=== PATIENT | male | born 1980 | race Caucasian/White ===

== ENCOUNTER 2018-08-08 16:10 | Inpatient (IN) | payer MEDICAID ==
[~2018-08-08] VITALS: Ht 165.1 cm; Wt 161.6 kg
[2018-08-08] MEDS ORDERED: ACETAMINOPHEN 500 MG TAB PO STA (17:01)
[2018-08-08] MEDS ORDERED: AZITHROMYCIN 500MG/NS (PMX) 250 ML IV STA (17:01)
[2018-08-08] MEDS ORDERED: SODIUM CHLORIDE 0.9% 1L BAG IV* STA (17:01)
[2018-08-08] MEDS ORDERED: CEFTRIAXONE 1 GM/50 ML (PMX) 50 ML IVPB STA (17:01)
--- NOTE | 2018-08-08 17:25 | ERD ---
ER Documentation Chief Complaint Chief Complaint SOB, BLE EDEMA, FATIGUE SINCE YESTERDAY HPI 38-year-old male presenting with fever that started yesterday with right leg pain and swelling. He states he always has problems with the right lower extremity but since yesterday it has been more red and painful. To me he is denying any shortness of breath, cough, URI symptoms, chest pain, abdominal pain, or dysuria. No vomiting or diarrhea. ROS All systems reviewed and are negative except as per history of present illness. Medications Home Meds No Active Prescriptions or Reported Meds Allergies Allergies: Coded Allergies: No Known Allergy (Unverified , 08/08/18) PMhx/Soc Medical and Surgical Hx: pt denies Medical Hx, pt denies Surgical Hx FmHx Family History: No diabetes, No coronary disease Physical Exam Vitals Vital Signs Date Temp Pulse Resp B/P (MAP) Pulse Ox O2 O2 Flow FiO2 Time Delivery Rate 08/08/18 132 98 30 17:34 08/08/18 Nasal 5.0 17:32 Cannula 08/08/18 Nasal 5 17:17 Cannula 08/08/18 103.3 146 26 125/70 84 16:37 (88) Physical Exam Const: Morbidly obese, appears to be in mild respiratory distress. Head: Atraumatic Eyes: Normal Conjunctiva ENT: Dry oral mucosa. No obvious JVD, but exam limited due to body habitus normal External Ears, Nose and Mouth. Neck: Full range of motion. No meningismus. Resp: Tachypneic. Diminished breath sounds bilaterally. Exam limited by body habitus. Cardio: Tachycardic, regular rhythm, no murmurs. 2+ DP and PT pulses bilaterally. Abd: Soft, non tender, non distended. Normal bowel sounds Skin: Right lower extremity with erythema, swelling, and warmth. No crepitus to palpation. No brawny discoloration. Mildly tender to palpation. Back: No midline or flank tenderness Ext: Right lower extremity edema and erythema as described in skin exam Neur: Awake and alert, oriented, normal speech, no facial asymmetry, strength and sensations intact in all 4 extremities Psych: Normal Mood and Affect Result Diagram: 08/08/18 1712 08/08/18 1712 Results 24 hrs Laboratory Tests Test 08/08/18 17:12 08/08/18 17:32 White Blood Count 10.6 10^3/ul Red Blood Count 4.73 10^6/ul Hemoglobin 12.8 g/dl Hematocrit 41.9 % Mean Corpuscular Volume 88.6 fl Mean Corpuscular Hemoglobin 27.1 pg Mean Corpuscular Hemoglobin Concent 30.5 g/dl Red Cell Distribution Width 16.6 % Platelet Count 170 10^3/UL Mean Platelet Volume 10.4 fl Immature Granulocytes % 1.100 % Neutrophils % 83.1 % Lymphocytes % 8.2 % Monocytes % 7.3 % Eosinophils % 0.0 % Basophils % 0.3 % Nucleated Red Blood Cells % 0.0 /100WBC Immature Granulocytes # 0.120 10^3/ul Neutrophils # 8.8 10^3/ul Lymphocytes # 0.9 10^3/ul Monocytes # 0.8 10^3/ul Eosinophils # 0.0 10^3/ul Basophils # 0.0 10^3/ul Nucleated Red Blood Cells # 0.0 10^3/ul Prothrombin Time 18.5 Sec Prothrombin Time Ratio 1.4 INR International Normalized Ratio 1.53 Activated Partial Thromboplast Time 37.6 Sec Sodium Level 134 mmol/L Potassium Level 4.6 mmol/L Chloride Level 93 mmol/L Carbon Dioxide Level 32 mmol/L Anion Gap 9 Blood Urea Nitrogen 18 mg/dl Creatinine 1.18 mg/dl Est Glomerular Filtrat Rate mL/min > 60 mL/min Glucose Level 116 mg/dl Lactic Acid Level 1.8 mmol/L Calcium Level 8.7 mg/dl Total Bilirubin 0.4 mg/dl Direct Bilirubin 0.00 mg/dl Indirect Bilirubin 0.4 mg/dl Aspartate Amino Transf (AST/SGOT) 25 IU/L Alanine Aminotransferase (ALT/SGPT) 22 IU/L Alkaline Phosphatase 51 IU/L Troponin I 0.025 ng/ml Total Protein 8.0 g/dl Albumin 4.0 g/dl Globulin 4.00 g/dl Albumin/Globulin Ratio 1.00 Blood Gas Specimen Source Blood arterial Arterial Blood Date Drawn 08/08/2018 5:44:59 PM Arterial Blood pH (Temp corrected) 7.352 Arterial Blood pCO2 (Temp correct) 56.8 mmhg Arterial Blood pO2 (Temp corrected) 63.3 mmHG Arterial Blood HCO3 30.8 mmol/L Arterial Blood Base Excess 3.8 mmol/L Arterial Blood Oxygen Saturation 91.3 mmHG Kojo Test ACCEPTAB Arterial Blood Gas Puncture Site Right Radial Arterial Blood Carboxyhemoglobin 1.5 % Arterial Blood Methemoglobin 0.2 % Blood Gas A-a O2 Differential 83.9 mmHg Oxyhemoglobin Percent 89.7 % Blood Gas Temperature 37.0 C Blood Gas Respiration Rate 16.0 Blood Gas Actual Respiration Rate 21 Blood Gas Modality MASK - BIPAP FiO2 30.0 % Blood Gas Pressure Support 15 Blood Gas IPAP/EPAP Ratio 20/8 Blood Gas Notified Whom M.D. Blood Gas Notified Time 08/08/2018 5:57:40 PM Current Medications Medications Dose Sig/Ciera Start Time Status Last (Trade) Ordered Route PRN Stop Time Admin Dose Reason Admin Sodium 1,850 ml BOLUS OVER 2 08/08/18 DC 08/08/18 Chloride HOURS STAT 17:08/08/18 17:10 (NS) IV* 17:02 Ceftriaxone 50 ml @ ONCE STAT 08/08/18 DC 08/08/18 Sodium 100 mls/hr IVPB 17:08/08/18 17:09 17:30 Azithromycin 250 ml @ ONCE STAT 08/08/18 DC 08/08/18 250 mls/hr IV 17:01 08/08/18 17:47 18:00 1,000 mg ONCE STAT 08/08/18 DC 08/08/18 Acetaminophen PO 17:01 08/08/18 17:10 (Tylenol 17:02 Tab) Ondansetron 4 mg ER BRIDGE 08/08/18 DC HCl (Zofran PRN IV 18:30 08/08/18 Inj) NAUSEA/VOMITI 19:07 NG 650 mg ER BRIDGE 08/08/18 DC Acetaminophen PRN PO 18:30 08/08/18 (Tylenol .MILD PAIN 19:07 Tab) 1-3 OR TEMP IV Flush 3 ml PER 08/08/18 (NS 3 ml) PROTOCOL IV 19:00 Ondansetron 4 mg Q6H PRN 08/08/18 HCl (Zofran IV 19:00 Inj) NAUSEA/VOMITI NG 650 mg Q6H PRN 08/08/18 Acetaminophen PO .PAIN 1-3 19:00 (Tylenol OR TEMP Tab) 40 mg DAILY@06 08/09/18 Pantoprazole IV 06:00 (Protonix Iv) Heparin 5,000 unit Q8 SC 08/08/18 Sodium 22:00 (Porcine) (Heparin (5000 Units/1ml)) Ceftriaxone 50 ml @ Q24H IVPB 08/09/18 Sodium 100 mls/hr 12:00 Azithromycin 250 ml @ Q24H IVPB 08/09/18 250 mls/hr 12:00 Albuterol/ 3 ml Q4H RESP 08/08/18 Ipratropium THERAPY PRN 19:00 (Duoneb) HHN wheezing 2 ml Q6H RESP 08/08/18 Acetylcystein THERAPY NEB 20:00 e (Mucomyst) Nicotine 1 patch DAILY 08/08/18 (Nicoderm 21 TRANSDERM 19:30 Mg/ 24hr) Lorazepam 2 mg Q4H PRN 08/08/18 (Ativan) IV 19:30 anxiety/agita tion Procedures/MDM EMERGENT LABS AND DIAGNOSTIC STUDIES: Lab Results above were reviewed and interpreted by me. CBC: no significant anemia or evidence of infection CMP: Elevated CO2. No evidence of significant electrolyte abnormality, renal failure, hypoglycemia, liver failure, or biliary obstruction Troponin within normal limits, not indicative of cardiac ischemia Lactate within normal limits without evidence of sepsis or tissue hypoperfusion ABG: no acidosis or alkalosis. Hypercapnic, Hypoxemic 12-lead EKG was interpreted by Matt Victor MD: Sinus tachycardia at 137 bpm Normal axis Normal intervals No acute ST or T wave changes suggestive of acute ischemia or STEMI. Radiology Results as interpreted by Radiology below were reviewed by Ina Victor MD: Chest XR: IMPRESSION: Diffuse interstitial opacities bilaterally, which can represent airway inflammation and/or interstitial edema. Further clinical correlation is advised. No radiographic evidence of focal consolidation or pleural effusion, allowing for markedly low lung volumes. Initial Nursing notes reviewed. Previous Medical Records requested via the Electronic Health Record. EMERGENCY DEPARTMENT COURSE / MEDICAL DECISION MAKING: Patient is presenting with fever, tachycardia, tachypnea, and right lower extremity cellulitis. He was also noted to be hypoxic and occasionally apneic. Given the patient's body habitus, I suspect obstructive sleep apnea. Chest x- ray did not show evidence of pneumonia. There was some interstitial edema. I do suspect that the patient likely has some diastolic heart failure that is not diagnosed. He was given IV fluids and broad-spectrum IV antibiotics. No evidence of severe sepsis or septic shock. No clear evidence of pneumonia at this time. Lower suspicion for pulmonary embolism. Right lower extremity ultrasound ruled out DVT. Patient was placed on BiPAP with improvement of his symptoms. ABG was done on BiPAP showing a normal pH but patient is still hypercapnic and hypoxic. Patient's respiratory and infectious symptoms have not stabilized and the patient is at risk of rapid decompensation. The patient will be admitted for careful hydration, antibiotic therapy, and infectious source control. Severe Sepsis Assessment: Infectious Source: Cellulitis of right lower extremity End organ damage indicated by: Acute Resp Failure (sat < 92% w/o oxygen) Severe Sepsis Managment: Blood Cultures X 2 before broad spectrum antibiotics initiated within 3 hours of recognition. 30 ml/kg NS bolus Completed Initial Lactate: [normal] Repeat Lactate [not indicated as initial < 2.0] Critical Care: Time: 40 minutes Treatments/Evaluations: Emergent fluid management, while maintaining close respiratory support. Immediate broad spectrum antibiotic therapy. Simultaneous assessment for possible sources in order to direct therapy. Consideration for invasive and chemical support to prevent respiratory or cardiac collapse. Septic Shock Assessment (1 hour post 30 ml/kg fluid bolus): Hypotension (SBP < 90 or 40 mmHg drop, MAP < 65): [No] Lactic acid > 4.0 [No] Accepting Care Team: Current data and ongoing care discussed. Time: Time of admission Primary Provider: Dr. Rodrigo Rosas Departure Diagnosis: Primary Impression: Acute respiratory failure with hypoxia and hypercapnia Additional Impressions: Sepsis Sepsis type: sepsis due to unspecified organism Qualified Codes: A41.9 - Sepsis, unspecified organism Cellulitis of right leg Condition: Serious PATRICIA VICTOR MD Aug 08, 2018 17:22
[2018-08-08] MEDS ORDERED: ACETAMINOPHEN 325 MG TAB PO PRN ×2 (18:30→19:00)
[2018-08-08] MEDS ORDERED: ONDANSETRON 4 MG INJ IV PRN ×2 (18:30→19:00)
[2018-08-08] MEDS ORDERED: ALBUTEROL/IPRATROPIUM (NEB) 3 ML AMP HHN PRN (19:00)
[2018-08-08] MEDS ORDERED: NACL 0.9% 3 ML SYG IV SCH (19:00)
--- NOTE | 2018-08-08 19:17 | HP ---
Date/Time of Note Date/Time of Note DATE: 08/08/18 TIME: 19:02 Assessment/Plan VTE Prophylaxis SCD applied (from Nsg): Yes Pharmacological prophylaxis: heparin Lines/Catheters IV Catheter Type (from Nrsg): Saline Lock Assessment/Plan Assessment/Plan 38 yo super morbidly obese man with acute on chronic respiratory failure and R leg pain. #Respiratory failure - Per family, has chronic respiratory failure and what sounds like obstructive symptoms for months or years. - Likely DAMON/OHS, possibly COPD with heavy smoking history - Empiric ceftriaxone/azithro for pneumonia - Currently requiring BiPAP for oxygenation and CO2 clearance - Will start prn albuterol/atrovent though I don't hear much wheezing - Also N-acetylcystine as mucolytic. - Discussed possibly need for intubation, patient and family are in agreement. Full code status. #R leg pain - Acute onset over 1-2 days. - Looks like venous stasis disease, possibly with superficial infection - Duplex negative for DVT - Will order CT to r/o deep necrotizing infection or fracture. - Empiric ceftriaxone. #Tobacco use - Nicotine patch #Super morbid obesity - Will check lipid panel, HgbA1C. DVT: heparin GI: protonix Result Diagram: 08/08/18 1712 08/08/18 171 HPI/ROS Admit Date/Time Admit Date/Time 08 August 2018 Hx of Present Illness Mr. Carlisle is an unfortunate super morbidly obese man who presents with right leg pain and swelling. Most of history taken per family at bedside; patient is in respiratory distress on BiPAP. Apparently he had a few days of R leg swelling, two days of fever, the n yesterday developed leg redness. While walking, he collapsed and fell due to the leg pain and weakness. So family brought him into the emergency room. Apparently he has chronic respiratory distress which has been going on for months, possibly years. Mother reports he constantly has gasping breaths day and night and often has apneic episodes lasting up to five minutes at night when sleeping. He has chronic cough productive of sputum which has been going on for months. Severe daytime sleepiness, often falls asleep during conversations. The patient smokes 1 pack per day, he is unemployed and lives at home with mother, father, and sister. He has frequent episodes of anxiety for which he gets up and compulsively searches for food at home. He has not been hospitalized in over 10 years and has not seen a doctor during this time either. In the ED, he was febrile to 103.3, tachy to 146, tachypneic to 26, BP 125/70. CBC, CMP mostly unremarkable. ABG showed hypoxic and hypercapnic respiratory failure with compensatory metabolic alkalosis. ROS Denies recent lethargy, weight loss, headache, vision changes, chest pain/pressure/palpitations, dysuria, hematuria, nausea, vomiting, diarrhea, constipation, melena, hematochezia. PMH/Family/Social Past Medical History Medical History: no pertinent history Medications Current Medications Ondansetron HCl (Zofran Inj) 4 mg ER BRIDGE PRN IV NAUSEA/VOMITING; Start 08/08/18 at 18:30; Stop 08/09/18 at 18:29 Acetaminophen (Tylenol Tab) 650 mg ER BRIDGE PRN PO .MILD PAIN 1-3 OR TEMP; Start 08/08/18 at 18:30; Stop 08/09/18 at 18:29 IV Flush (NS 3 ml) 3 ml PER PROTOCOL IV ; Start 08/08/18 at 19:00 Ondansetron HCl (Zofran Inj) 4 mg Q6H PRN IV NAUSEA/VOMITING; Start 08/08/18 at 19:00 Acetaminophen (Tylenol Tab) 650 mg Q6H PRN PO .PAIN 1-3 OR TEMP; Start 08/08/18 at 19:00 Pantoprazole (Protonix Iv) 40 mg DAILY@06 IV ; Start 08/09/18 at 06:00 Heparin Sodium (Porcine) (Heparin (5000 Units/1ml)) 5,000 unit Q8 SC ; Start 08/08/18 at 22:00 Ceftriaxone Sodium 50 ml @ 100 mls/hr Q24H IVPB ; Start 08/09/18 at 12:00; Status UNV Azithromycin 250 ml @ 250 mls/hr Q24H IVPB ; Start 08/09/18 at 12:00; Status UNV Albuterol/ Ipratropium (Duoneb) 3 ml Q4H RESP THERAPY PRN HHN wheezing; Start 08/08/18 at 19:00; Status UNV Acetylcysteine (Mucomyst) 2 ml Q6H RESP THERAPY NEB ; Start 08/08/18 at 20:00; Status UNV Coded Allergies: No Known Allergy (Unverified , 08/08/18) Past Surgical History Past Surgical Hx: no surgical history Social History Alcohol Use: occasionally (1-2 beers per day) Smoking Status: Current every day smoker (1 pack per day) Drug Use: cocaine (in the distant past) Exam/Review of Systems Vital Signs Vitals Vital Signs Date Temp Pulse Resp B/P (MAP) Pulse Ox O2 O2 Flow FiO2 Time Delivery Rate 08/08/18 132 98 30 17:34 08/08/18 Nasal 5.0 17:32 Cannula 08/08/18 103.3 26 125/70 16:37 (88) Exam Exam Gen: Super morbidly obese man sitting up in bed struggling to breathe on BiPAP. Eyes: PERRL, no icterus. HEENT: Moist mucous membranes, clear oropharynx Neck: Hyperpigmented with numerous skin tags. Card: Regular rate and rhythm, distant heart sounds Pulm: Distant breath sounds bilaterally, respiratory distress on BiPAP Abd: Very distended, soft, nontender. Ext: RLE 2+ edema, erythema, full range of motion, not very tender. LLE obese, no redness. Skin: Several superficial ulcers on inferior pannus folds. JERMAINE DIOP MD Aug 08, 2018 19:13
[2018-08-08] MEDS ORDERED: LORAZEPAM 2 MG INJ IV PRN (19:30)
[2018-08-08] MEDS: NICOTINE (21 MG/24 HR) PATCH TRANSDERM SCH (22:04)
[2018-08-09] VITALS (13 sets, daily range): BP systolic 106–130; BP diastolic 61–67; PULSE 100–150; RESP 16–24; Ht 165.1 cm; Wt 161.6 kg
[2018-08-09] MEDS: HEPARIN 5,000 UNIT/1 ML VIAL SC SCH ×4 (03:30→21:30)
[2018-08-09] MEDS: PANTOPRAZOLE 40 MG INJ IV SCH (05:10)
[2018-08-09] MEDS: ACETYLCYSTEINE 20% 4 ML VIAL NEB SCH ×5 (06:08→19:58)
[2018-08-09] MEDS: NICOTINE (21 MG/24 HR) PATCH TRANSDERM SCH (08:55)
--- NOTE | 2018-08-09 10:54 | PN ---
Date/Time of Note Date/Time of Note DATE: 08/09/18 TIME: 10:50 Assessment/Plan VTE Prophylaxis Risk score (from Nsg)>0 risk: 2 SCD applied (from Nsg): Yes Pharmacological prophylaxis: heparin Lines/Catheters IV Catheter Type (from Nrsg): Saline Lock Assessment/Plan Assessment/Plan 38 yo super morbidly obese man with acute on chronic respiratory failure and R leg pain. #Respiratory failure - Per family, has chronic respiratory failure and what sounds like obstructive symptoms for months or years. - Likely DAMON/OHS, possibly COPD with heavy smoking history - Empiric ceftriaxone/azithro for pneumonia. Will discharge on 7 day course of levaquin. - prn albuterol/atrovent though I don't hear much wheezing - Also N-acetylcystine as mucolytic. - Case management consulted for home BiPAP - Consulted pulmonary. #R leg pain - Acute onset over 1-2 days. - Looks like venous stasis disease, possibly with superficial infection - Duplex negative for DVT - CT not definite for deep necrotizing infection - Will discharge on 7 days of levaquin. - PT for ambulation. #pre-diabetes - New diagnosis with HgbA1C 6.0 - Diet changes and weight loss, may be a good candidate for metformin due to weight loss effect but will not start this now. #Tobacco use - Nicotine patch DVT: heparin GI: protonix Dispo: Anticipate discharge in 24-48 hours. Will likely need home BiPAP and outpatient pulmonary followup. Result Diagram: 08/09/18 0801 08/09/18 0801 Subjective 24 Hr Interval Summary Free Text/Dictation Tolerated BiPAP overnight. This morning breathing comfortably on nasal cannula. Hasn't tried ambulating yet. Informed patient about new diagnosis of pre-diabetes Exam/Review of Systems Exam Vitals Vital Signs Date Temp Pulse Resp B/P (MAP) Pulse Ox O2 O2 Flow FiO2 Time Delivery Rate 08/09/18 125 09:16 08/09/18 99.3 16 130/61 95 BIPAP 07:12 (84) 08/09/18 50 04:05 08/08/18 5.0 17:32 Exam Gen: Super morbidly obese man sitting up in bed breathing comfortably on nasal cannula. Eyes: PERRL, no icterus. HEENT: Moist mucous membranes, clear oropharynx Neck: Hyperpigmented with numerous skin tags. Card: Regular rate and rhythm, distant heart sounds Pulm: Distant breath sounds bilaterally, on nasal cannula Abd: Very distended, soft, nontender. Ext: RLE 2+ edema, erythema improved since yesterday, full range of motion, not very tender. LLE obese, no redness. Skin: Several superficial ulcers on inferior pannus folds. Results Results 24hrs Laboratory Tests Test 08/08/18 17:12 08/08/18 17:32 08/08/18 20:01 08/08/18 22:03 White Blood Count 10.6 Red Blood Count 4.73 Hemoglobin 12.8 L Hematocrit 41.9 L Mean Corpuscular 88.6 Volume Mean Corpuscular 27.1 L Hemoglobin Mean Corpuscular 30.5 L Hemoglobin Concent Red Cell 16.6 H Distribution Width Platelet Count 170 Mean Platelet 10.4 Volume Immature 1.100 H Granulocytes % Neutrophils % 83.1 H Lymphocytes % 8.2 L Monocytes % 7.3 Eosinophils % 0.0 Basophils % 0.3 Nucleated Red 0.0 Blood Cells % Immature 0.120 H Granulocytes # Neutrophils # 8.8 H Lymphocytes # 0.9 Monocytes # 0.8 Eosinophils # 0.0 Basophils # 0.0 Nucleated Red 0.0 Blood Cells # Prothrombin Time 18.5 H Prothrombin Time 1.4 Ratio INR International 1.53 Normalized Ratio Activated 37.6 H 38.[address] Time Sodium Level 134 L Potassium Level 4.6 Chloride Level 93 L Carbon Dioxide 32 H Level Anion Gap 9 Blood Urea 18 Nitrogen Creatinine 1.18 Est Glomerular > 60 Filtrat Rate mL/min Glucose Level 116 Lactic Acid Level 1.8 1.0 1.2 Calcium Level 8.7 Total Bilirubin 0.4 Direct Bilirubin 0.00 Indirect Bilirubin 0.4 Aspartate Amino 25 Transf (AST/SGOT) Alanine 22 Aminotransferase ( ALT/SGPT) Alkaline 51 Phosphatase Troponin I 0.025 Total Protein 8.0 Albumin 4.0 Globulin 4.00 H Albumin/Globulin 1.00 Ratio Blood Gas Specimen Blood arterial Source Arterial Blood 08/08/2018 5:44:59 Date Drawn PM Arterial Blood pH 7.352 (Temp corrected) Arterial Blood 56.8 H pCO2 (Temp correct) Arterial Blood pO2 63.3 L (Temp corrected) Arterial Blood 30.8 H HCO3 Arterial Blood 3.8 H Base Excess Arterial Blood 91.3 L Oxygen Saturation Kojo Test ACCEPTAB Arterial Blood Gas Right Radial Puncture Site Arterial 1.5 Blood Carboxyhemog lobin Arterial Blood 0.2 Methemoglobin Blood Gas A-a O2 83.9 H Differential Oxyhemoglobin 89.7 L Percent Blood Gas 37.0 Temperature Blood Gas 16.0 Respiration Rate Blood Gas Actual 21 Respiration Rate Blood Gas Modality MASK - BIPAP FiO2 30.0 Blood Gas Pressure 15 Support Blood Gas 20/8 IPAP/EPAP Ratio Blood Gas Notified MZita Whom Blood Gas Notified 08/08/2018 5:57:40 Time PM Test 08/09/18 08:01 White Blood Count 9.4 Red Blood Count 4.42 L Hemoglobin 12.0 L Hematocrit 39.3 L Mean Corpuscular 88.9 Volume Mean Corpuscular 27.1 L Hemoglobin Mean Corpuscular 30.5 L Hemoglobin Concent Red Cell 16.6 H Distribution Width Platelet Count 149 Mean Platelet 10.5 H Volume Immature 0.700 H Granulocytes % Neutrophils % 85.4 H Lymphocytes % 6.2 L Monocytes % 7.4 Eosinophils % 0.1 Basophils % 0.2 Nucleated Red 0.0 Blood Cells % Immature 0.070 H Granulocytes # Neutrophils # 8.0 H Lymphocytes # 0.6 L Monocytes # 0.7 Eosinophils # 0.0 Basophils # 0.0 Nucleated Red 0.0 Blood Cells # Sodium Level 136 Potassium Level 4.4 Chloride Level 99 Carbon Dioxide 30 Level Anion Gap 7 Blood Urea 18 Nitrogen Creatinine 0.94 Est Glomerular > 60 Filtrat Rate mL/min Glucose Level 102 Hemoglobin A1c 6.0 H Calcium Level 8.3 L Phosphorus Level 2.6 Magnesium Level 2.0 Total Bilirubin 0.3 Direct Bilirubin 0.00 Indirect Bilirubin 0.3 Aspartate Amino 23 Transf (AST/SGOT) Alanine 20 Aminotransferase ( ALT/SGPT) Alkaline 65 Phosphatase Total Protein 7.5 Albumin 3.6 Globulin 3.90 H Albumin/Globulin 0.92 Ratio Triglycerides 116 Level Cholesterol Level 104 LDL Cholesterol, 61 Calculated HDL Cholesterol 20 L Cholesterol/HDL 5.2 Ratio Thyroid Pending Stimulating Hormone (TSH) Medications Medication Current Medications IV Flush (NS 3 ml) 3 ml PER PROTOCOL IV ; Start 08/08/18 at 19:00 Ondansetron HCl (Zofran Inj) 4 mg Q6H PRN IV NAUSEA/VOMITING; Start 08/08/18 at 19:00 Acetaminophen (Tylenol Tab) 650 mg Q6H PRN PO .PAIN 1-3 OR TEMP; Start 08/08/18 at 19:00 Pantoprazole (Protonix Iv) 40 mg DAILY@06 IV Last administered on 08/09/18at 05:10; Admin Dose 40 MG; Start 08/09/18 at 06:00 Heparin Sodium (Porcine) (Heparin (5000 Units/1ml)) 5,000 unit Q8 SC Last administered on 08/09/18at 05:14; Admin Dose 5,000 UNIT; Start 08/08/18 at 22:00 Ceftriaxone Sodium 50 ml @ 100 mls/hr Q24H IVPB ; Start 08/09/18 at 12:00 Azithromycin 250 ml @ 250 mls/hr Q24H IVPB ; Start 08/09/18 at 12:00 Albuterol/ Ipratropium (Duoneb) 3 ml Q4H RESP THERAPY PRN HHN wheezing; Start 08/08/18 at 19:00 Acetylcysteine (Mucomyst) 2 ml Q6H RESP THERAPY NEB ; Start 08/08/18 at 20:00 Nicotine (Nicoderm 21 Mg/ 24hr) 1 patch DAILY TRANSDERM Last administered on 08/09/18at 08:55; Admin Dose 1 PATCH; Start 08/08/18 at 19:30 Lorazepam (Ativan) 2 mg Q4H PRN IV anxiety/agitation; Start 08/08/18 at 19:30 JERMAINE DIOP MD Aug 09, 2018 10:54
--- NOTE | 2018-08-09 11:34 | CONS ---
Assessment/Plan Assessment/Plan Assessment/Plan (Daily) Assessment recommendations; 1. Patient admitted with right lower extremity cellulitis with superimposed long-standing history of chest congestion and what appears to be chronic bronchitis/COPD. 2. Likely chronic type II respiratory failure with underlying sleep apnea. Continue current supportive care. Continue BiPAP. Patient will need to have a sleep study on an outpatient basis. Trial of Solu-Medrol 40 mg every 8 hours at least for 3 doses. Add DuoNeb every 6 hours scheduled. Consultation Date/Type/Reason Admit Date/Time 08 August 2018 Date of Consultation: Aug 09, 2018 Type of Consult Pulmonary Patient is a pleasant 38-year-old male who came into the hospital with a few days history of right lower extremity swelling and redness with associated shortness of breath and cough and chest congestion which has been going on for months to years. Patient denies any chest pain, any fever, any sputum production. Past medical history; 1. Possibly underlying sleep apnea. Medications; reviewed. Allergies; none. Social history; smokes about a pack a day and also snorts cocaine off and on. Family history; , no show any illnesses in the family. 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 Complains of scant cough and chest congestion. Complains of right lower extremity pain and swelling for the last few days. Denies any melena or hematochezia. Complains of snoring and daytime sleepiness. Complains of weight gain. Denies any urinary symptoms. General exam; young male, morbidly obese, awake and alert. Currently no distress. Date/Time of Note DATE: 08/09/18 TIME: 11:30 Past Medical History Medical History: no pertinent history Home Meds No Active Prescriptions or Reported Meds Medications Current Medications IV Flush (NS 3 ml) 3 ml PER PROTOCOL IV ; Start 08/08/18 at 19:00 Ondansetron HCl (Zofran Inj) 4 mg Q6H PRN IV NAUSEA/VOMITING; Start 08/08/18 at 19:00 Acetaminophen (Tylenol Tab) 650 mg Q6H PRN PO .PAIN 1-3 OR TEMP; Start 08/08/18 at 19:00 Pantoprazole (Protonix Iv) 40 mg DAILY@06 IV Last administered on 08/09/18at 05:10; Admin Dose 40 MG; Start 08/09/18 at 06:00 Heparin Sodium (Porcine) (Heparin (5000 Units/1ml)) 5,000 unit Q8 SC Last administered on 08/09/18at 05:14; Admin Dose 5,000 UNIT; Start 08/08/18 at 22:00 Ceftriaxone Sodium 50 ml @ 100 mls/hr Q24H IVPB ; Start 08/09/18 at 12:00 Azithromycin 250 ml @ 250 mls/hr Q24H IVPB ; Start 08/09/18 at 12:00 Albuterol/ Ipratropium (Duoneb) 3 ml Q4H RESP THERAPY PRN HHN wheezing; Start 08/08/18 at 19:00 Acetylcysteine (Mucomyst) 2 ml Q6H RESP THERAPY NEB ; Start 08/08/18 at 20:00 Nicotine (Nicoderm 21 Mg/ 24hr) 1 patch DAILY TRANSDERM Last administered on 08/09/18at 08:55; Admin Dose 1 PATCH; Start 08/08/18 at 19:30 Lorazepam (Ativan) 2 mg Q4H PRN IV anxiety/agitation; Start 08/08/18 at 19:30 Allergies: Coded Allergies: No Known Allergy (Unverified , 08/08/18) Past Surgical History Past Surgical Hx: no surgical history Social History Alcohol Use: occasionally (1-2 beers per day) Smoking Status: Current every day smoker Drug Use: cocaine (in the distant past) Exam/Review of Systems Exam Vitals Vital Signs Date Temp Pulse Resp B/P (MAP) Pulse Ox O2 O2 Flow FiO2 Time Delivery Rate 08/09/18 125 09:16 08/09/18 99.3 16 130/61 95 BIPAP 07:12 (84) 08/09/18 50 04:05 08/08/18 5.0 17:32 Exam H EENT exam; supple neck, JVD difficult to see because of short neck. Patient has fair dentition. No neck masses. Chest exam; diminished breath sounds throughout. No added sounds. S1-S2 audible, no murmurs. Regular rhythm. Abdomen exam; protuberant. Organomegaly difficult to assess. Nontender. Bowel sounds audible. Extremity exam; right lower extremity erythema and mild edema. Pulses 2+. 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 Results Result Diagram: 4/4/19 0801 08/09/18 0801 Results 24hrs Laboratory Tests Test 08/08/18 17:12 08/08/18 17:32 08/08/18 20:01 08/08/18 22:03 White Blood Count 10.6 Red Blood Count 4.73 Hemoglobin 12.8 L Hematocrit 41.9 L Mean Corpuscular 88.6 Volume Mean Corpuscular 27.1 L Hemoglobin Mean Corpuscular 30.5 L Hemoglobin Concent Red Cell 16.6 H Distribution Width Platelet Count 170 Mean Platelet 10.4 Volume Immature 1.100 H Granulocytes % Neutrophils % 83.1 H Lymphocytes % 8.2 L Monocytes % 7.3 Eosinophils % 0.0 Basophils % 0.3 Nucleated Red 0.0 Blood Cells % Immature 0.120 H Granulocytes # Neutrophils # 8.8 H Lymphocytes # 0.9 Monocytes # 0.8 Eosinophils # 0.0 Basophils # 0.0 Nucleated Red 0.0 Blood Cells # Prothrombin Time 18.5 H Prothrombin Time 1.4 Ratio INR International 1.53 Normalized Ratio Activated 37.6 H 38.[address] Time Sodium Level 134 L Potassium Level 4.6 Chloride Level 93 L Carbon Dioxide 32 H Level Anion Gap 9 Blood Urea 18 Nitrogen Creatinine 1.18 Est Glomerular > 60 Filtrat Rate mL/min Glucose Level 116 Lactic Acid Level 1.8 1.0 1.2 Calcium Level 8.7 Total Bilirubin 0.4 Direct Bilirubin 0.00 Indirect Bilirubin 0.4 Aspartate Amino 25 Transf (AST/SGOT) Alanine 22 Aminotransferase ( ALT/SGPT) Alkaline 51 Phosphatase Troponin I 0.025 Total Protein 8.0 Albumin 4.0 Globulin 4.00 H Albumin/Globulin 1.00 Ratio Blood Gas Specimen Blood arterial Source Arterial Blood 08/08/2018 5:44:59 Date Drawn PM Arterial Blood pH 7.352 (Temp corrected) Arterial Blood 56.8 H pCO2 (Temp correct) Arterial Blood pO2 63.3 L (Temp corrected) Arterial Blood 30.8 H HCO3 Arterial Blood 3.8 H Base Excess Arterial Blood 91.3 L Oxygen Saturation Kojo Test ACCEPTAB Arterial Blood Gas Right Radial Puncture Site Arterial 1.5 Blood Carboxyhemog lobin Arterial Blood 0.2 Methemoglobin Blood Gas A-a O2 83.9 H Differential Oxyhemoglobin 89.7 L Percent Blood Gas 37.0 Temperature Blood Gas 16.0 Respiration Rate Blood Gas Actual 21 Respiration Rate Blood Gas Modality MASK - BIPAP FiO2 30.0 Blood Gas Pressure 15 Support Blood Gas 20/8 IPAP/EPAP Ratio Blood Gas Notified MMemoDMemo Whom Blood Gas Notified 08/08/2018 5:57:40 Time PM Test 08/09/18 08:01 White Blood Count 9.4 Red Blood Count 4.42 L Hemoglobin 12.0 L Hematocrit 39.3 L Mean Corpuscular 88.9 Volume Mean Corpuscular 27.1 L Hemoglobin Mean Corpuscular 30.5 L Hemoglobin Concent Red Cell 16.6 H Distribution Width Platelet Count 149 Mean Platelet 10.5 H Volume Immature 0.700 H Granulocytes % Neutrophils % 85.4 H Lymphocytes % 6.2 L Monocytes % 7.4 Eosinophils % 0.1 Basophils % 0.2 Nucleated Red 0.0 Blood Cells % Immature 0.070 H Granulocytes # Neutrophils # 8.0 H Lymphocytes # 0.6 L Monocytes # 0.7 Eosinophils # 0.0 Basophils # 0.0 Nucleated Red 0.0 Blood Cells # Sodium Level 136 Potassium Level 4.4 Chloride Level 99 Carbon Dioxide 30 Level Anion Gap 7 Blood Urea 18 Nitrogen Creatinine 0.94 Est Glomerular > 60 Filtrat Rate mL/min Glucose Level 102 Hemoglobin A1c 6.0 H Calcium Level 8.3 L Phosphorus Level 2.6 Magnesium Level 2.0 Total Bilirubin 0.3 Direct Bilirubin 0.00 Indirect Bilirubin 0.3 Aspartate Amino 23 Transf (AST/SGOT) Alanine 20 Aminotransferase ( ALT/SGPT) Alkaline 65 Phosphatase Total Protein 7.5 Albumin 3.6 Globulin 3.90 H Albumin/Globulin 0.92 Ratio Triglycerides 116 Level Cholesterol Level 104 LDL Cholesterol, 61 Calculated HDL Cholesterol 20 L Cholesterol/HDL 5.2 Ratio Thyroid Pending Stimulating Hormone (TSH) Medications Medication Current Medications IV Flush (NS 3 ml) 3 ml PER PROTOCOL IV ; Start 08/08/18 at 19:00 Ondansetron HCl (Zofran Inj) 4 mg Q6H PRN IV NAUSEA/VOMITING; Start 08/08/18 at 19:00 Acetaminophen (Tylenol Tab) 650 mg Q6H PRN PO .PAIN 1-3 OR TEMP; Start 08/08/18 at 19:00 Pantoprazole (Protonix Iv) 40 mg DAILY@06 IV Last administered on 08/09/18at 05:10; Admin Dose 40 MG; Start 08/09/18 at 06:00 Heparin Sodium (Porcine) (Heparin (5000 Units/1ml)) 5,000 unit Q8 SC Last administered on 08/09/18at 05:14; Admin Dose 5,000 UNIT; Start 08/08/18 at 22:00 Ceftriaxone Sodium 50 ml @ 100 mls/hr Q24H IVPB ; Start 08/09/18 at 12:00 Azithromycin 250 ml @ 250 mls/hr Q24H IVPB ; Start 08/09/18 at 12:00 Albuterol/ Ipratropium (Duoneb) 3 ml Q4H RESP THERAPY PRN HHN wheezing; Start 08/08/18 at 19:00 Acetylcysteine (Mucomyst) 2 ml Q6H RESP THERAPY NEB ; Start 08/08/18 at 20:00 Nicotine (Nicoderm 21 Mg/ 24hr) 1 patch DAILY TRANSDERM Last administered on 08/09/18at 08:55; Admin Dose 1 PATCH; Start 08/08/18 at 19:30 Lorazepam (Ativan) 2 mg Q4H PRN IV anxiety/agitation; Start 08/08/18 at 19:30 MADISON HATFIELD Aug 09, 2018 11:34
[2018-08-09] MEDS: CEFTRIAXONE 1 GM/50 ML (PMX) 50 ML IVPB SCH (12:02)
[2018-08-09] MEDS: ALBUTEROL/IPRATROPIUM (NEB) 3 ML AMP HHN SCH ×2 (13:24→19:58)
[2018-08-09] MEDS: AZITHROMYCIN 500MG/NS (PMX) 250 ML IVPB SCH (14:27)
[2018-08-09] MEDS: METHYLPREDNISOLONE 40 MG INJ IV SCH ×2 (14:52→21:22)
[2018-08-10] VITALS (36 sets, daily range): BP systolic 114–155; BP diastolic 66–109; PULSE 92–118; RESP 15–26
[2018-08-10] MEDS: ACETYLCYSTEINE 20% 4 ML VIAL NEB SCH ×4 (01:30→20:04)
[2018-08-10] MEDS: LEVALBUTEROL (NEB) 0.63 MG/3 ML AMP HHN SCH ×4 (01:30→20:03)
[2018-08-10] MEDS: IPRATROPIUM (NEB) 0.5 MG/2.5 ML AMP HHN SCH ×4 (01:30→20:03)
[2018-08-10] MEDS: PANTOPRAZOLE 40 MG INJ IV SCH (05:19)
[2018-08-10] MEDS: METHYLPREDNISOLONE 40 MG INJ IV SCH ×3 (05:20→21:23)
[2018-08-10] MEDS: HEPARIN 5,000 UNIT/1 ML VIAL SC SCH ×3 (05:26→21:29)
[2018-08-10] MEDS: NICOTINE (21 MG/24 HR) PATCH TRANSDERM SCH (08:45)
--- NOTE | 2018-08-10 09:23 | CONS ---
Assessment/Plan Assessment/Plan Assessment/Plan (Daily) ABG from this morning is showing severe hypercapnic respiratory failure. Patient is currently on BiPAP. Assessment and recommendations; 1. Patient admitted with severe hypoxemic and hypercapnic respiratory failure with possibly acute bronchitis. 2. Likely underlying sleep apnea. 3. Morbid obesity. Obtain another stat ABG. Transfer patient to ICU. Patient likely will need to be intubated. I did discuss with the family at bedside. Consultation Date/Type/Reason Admit Date/Time Aug 08, 2018 at 18:27 Initial Consult Date 08/09/18 Type of Consult Pulmonary Patient is a pleasant 38-year-old male who came into the hospital with a few days history of right lower extremity swelling and redness with associated shortness of breath and cough and chest congestion which has been going on for months to years. Patient denies any chest pain, any fever, any sputum production. Past medical history; 1. Possibly underlying sleep apnea. Medications; reviewed. Allergies; none. Social history; smokes about a pack a day and also snorts cocaine off and on. Family history; , no show any illnesses in the family. 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 Complains of scant cough and chest congestion. Complains of right lower extremity pain and swelling for the last few days. Denies any melena or hematochezia. Complains of snoring and daytime sleepiness. Complains of weight gain. Denies any urinary symptoms. General exam; young male, morbidly obese, awake and alert. Currently no distress. Date/Time of Note DATE: 08/10/18 TIME: 09:20 24 HR Interval Summary Free Text/Dictation Patient's condition has worsened. Appearing very dyspneic. Does not want to put the BiPAP on his face. Causing severe O2 desaturation. General exam; young male, morbidly obese, awake, but appearing lethargic. Exam/Review of Systems Exam Vitals Vital Signs Date Temp Pulse Resp B/P (MAP) Pulse Ox O2 O2 Flow FiO2 Time Delivery Rate 08/10/18 96 08:04 08/10/18 25 96 50 08:00 08/10/18 97.7 135/86 BIPAP 07:31 (102) 4/4/19 4.0 22:30 Intake and Output 08/09/18 08/09/18 08/10/18 1515:00 23:00 07:00 IntakeIntake Total 300 ml BalanceBalance 300 ml Exam H EENT exam; supple neck, JVD difficult to see because of short neck. Patient has fair dentition. No neck masses. Chest exam; diminished breath sounds throughout. S1-S2 audible, no murmurs. Regular rhythm. Abdomen exam; grossly protuberant. Nontender. Organomegaly difficult to assess. Bowel sounds audible. Extremity exam; trace edema. 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 Results Result Diagram: 08/09/18 0808/09/18 0801 Results 24hrs Laboratory Tests Test 08/10/18 06:00 Blood Gas Specimen Source Blood arterial Arterial Blood Date Drawn 08/10/2018 6:10:53 AM Arterial Blood pH (Temp corrected) 7.250 *L Arterial Blood pCO2 (Temp correct) 73.1 H Arterial Blood pO2 (Temp corrected) 117.3 H Arterial Blood HCO3 31.3 H Arterial Blood Base Excess 1.9 Arterial Blood Oxygen Saturation 98.0 Kojo Test ACCEPTAB Arterial Blood Gas Puncture Site Right Radial Arterial Blood Carboxyhemoglobin 0.5 Arterial Blood Methemoglobin 0.1 Blood Gas A-a O2 Differential 157.0 H Oxyhemoglobin Percent 97.4 Blood Gas Temperature 37.0 Blood Gas Respiration Rate 16.0 Blood Gas Actual Respiration Rate 19 Blood Gas Modality MASK - BIPAP FiO2 50.0 Blood Gas Pressure Support 15 Blood Gas Critical Value Read Back DR RODGERS Blood Gas Notified Whom KB Blood Gas Notified Time 08/10/2018 6:21:19 AM Medications Medication Current Medications IV Flush (NS 3 ml) 3 ml PER PROTOCOL IV ; Start 08/08/18 at 19:00 Ondansetron HCl (Zofran Inj) 4 mg Q6H PRN IV NAUSEA/VOMITING; Start 08/08/18 at 19:00 Acetaminophen (Tylenol Tab) 650 mg Q6H PRN PO .PAIN 1-3 OR TEMP Last administered on 08/09/18at 18:01; Admin Dose 650 MG; Start 08/08/18 at 19:00 Pantoprazole (Protonix Iv) 40 mg DAILY@06 IV Last administered on 08/10/18at 05:19; Admin Dose 40 MG; Start 08/09/18 at 06:00 Heparin Sodium (Porcine) (Heparin (5000 Units/1ml)) 5,000 unit Q8 SC Last administered on 08/10/18 05:26; Admin Dose 5,000 UNIT; Start 08/08/18 at 22:00 Ceftriaxone Sodium 50 ml @ 100 mls/hr Q24H IVPB Last administered on 08/09/18 12:02; Admin Dose 100 MLS/HR; Start 08/09/18 at 12:00 Azithromycin 250 ml @ 250 mls/hr Q24H IVPB Last administered on 08/09/18 14:27; Admin Dose 250 MLS/HR; Start 08/09/18 at 12:00 Albuterol/ Ipratropium (Duoneb) 3 ml Q4H RESP THERAPY PRN HHN wheezing; Start 08/08/18 at 19:00 Acetylcysteine (Mucomyst) 2 ml Q6H RESP THERAPY NEB Last administered on 08/10/18 07:59; Admin Dose 2 ML; Start 08/08/18 at 20:00 Nicotine (Nicoderm 21 Mg/ 24hr) 1 patch DAILY TRANSDERM Last administered on 08/10/18 08:45; Admin Dose 1 PATCH; Start 08/08/18 at 19:30 Lorazepam (Ativan) 2 mg Q4H PRN IV anxiety/agitation; Start 08/08/18 at 19:30 Methylprednisolone Sodium Succinate (Solu-Medrol) 40 mg Q8 IV Last administered on 08/10/18 05:20; Admin Dose 40 MG; Start 08/09/18 at 14:00 Levalbuterol (Xopenex Neb) 0.63 mg Q6H RESP THERAPY HHN Last administered on 08/10/18 07:59; Admin Dose 0.63 MG; Start 08/10/18 at 02:00 Ipratropium [place] (Atrovent 0.02% (Neb)) 0.5 mg Q6H RESP THERAPY HHN Last administered on 08/10/18 07:59; Admin Dose 0.5 MG; Start 08/10/18 at 02:00 MADISON HATFIELD Aug 10, 2018 09:23
[2018-08-10] MEDS: CEFTRIAXONE 1 GM/50 ML (PMX) 50 ML IVPB SCH (11:15)
[2018-08-10] MEDS: AZITHROMYCIN 500MG/NS (PMX) 250 ML IVPB SCH (13:15)
--- NOTE | 2018-08-10 15:26 | PN ---
Date/Time of Note Date/Time of Note DATE: 08/10/18 TIME: 15:22 Assessment/Plan VTE Prophylaxis Risk score (from Nsg)>0 risk: 1 SCD applied (from Ns): No SCD contraindicated: other (no) Pharmacological prophylaxis: heparin Lines/Catheters IV Catheter Type (from Nrs): Peripheral IV Assessment/Plan Assessment/Plan 38 yo super morbidly obese man with acute on chronic respiratory failure and R leg pain. #Bacteremia - Blood cultures growing staph - Unclear source of infection. - Pending sensitivities. #Respiratory failure - Per family, has chronic respiratory failure and what sounds like obstructive symptoms for months or years. - Likely DAMON/OHS, possibly COPD with heavy smoking history - Empiric ceftriaxone/azithro for pneumonia. Will discharge on 7 day course of levaquin. - prn albuterol/atrovent though I don't hear much wheezing - Also N-acetylcystine as mucolytic. - Case management consulted for home BiPAP - Consulted pulmonary. #R leg pain - Acute onset over 1-2 days. - Looks like venous stasis disease, possibly with superficial infection - Duplex negative for DVT - CT not definite for deep necrotizing infection - Will discharge on 7 days of levaquin. - PT for ambulation. #pre-diabetes - New diagnosis with HgbA1C 6.0 - Diet changes and weight loss, may be a good candidate for metformin due to weight loss effect but will not start this now. #Tobacco use - Nicotine patch DVT: heparin GI: protonix Result Diagram: 08/10/18 1000 08/10/18 1000 Subjective 24 Hr Interval Summary Free Text/Dictation Apparently this morning patient was in respiratory distress and kept pulling off BiPAP mask. Dr. Cisse requested transfer to ICU. When I saw the patient late morning he was awake, conversant, breathing comfortably on BiPAP. His mother was at bedside, I updated her about the plan. Exam/Review of Systems Exam Vitals Vital Signs Date Temp Pulse Resp B/P (MAP) Pulse Ox O2 O2 Flow FiO2 Time Delivery Rate 08/10/18 111 96 50 15:01 08/10/18 22 14:57 08/10/18 98.0 127/83 BIPAP 12:00 (98) 08/09/18 4.0 22:30 Intake and Output 08/09/18 08/09/18 08/10/18 1515:00 23:00 07:00 IntakeIntake Total 300 ml BalanceBalance 300 ml Exam Gen: Super morbidly obese man sitting up in bed breathing comfortably on BiPAP mask Eyes: PERRL, no icterus. HEENT: Moist mucous membranes, clear oropharynx Neck: Hyperpigmented with numerous skin tags. Card: Regular rate and rhythm, distant heart sounds Pulm: Distant breath sounds bilaterally, on nasal cannula Abd: Very distended, soft, nontender. Ext: RLE 2+ edema, erythema improved since yesterday, full range of motion, not very tender. LLE obese, no redness. Skin: Several superficial ulcers on inferior pannus folds. Results Results 24hrs Laboratory Tests Test 08/10/18 06:00 08/10/18 09:19 08/10/18 10:00 Blood Gas Specimen Blood arterial Blood arterial Source Arterial Blood Date 08/10/2018 6:10:53 AM 08/10/2018 9:45:53 AM Drawn Arterial Blood pH 7.250 *L 7.324 L (Temp corrected) Arterial Blood pCO2 73.1 H 65.0 H (Temp correct) Arterial Blood pO2 117.3 H 68.9 L (Temp corrected) Arterial Blood HCO3 31.3 H 33.0 H Arterial Blood Base 1.9 4.9 H Excess Arterial Blood 98.0 92.9 L Oxygen Saturation Kojo Test ACCEPTAB ACCEPTAB Arterial Blood Gas Right Radial Right Radial Puncture Site Arterial 0.5 0.4 Blood Carboxyhemoglobin Arterial Blood 0.1 0.1 Methemoglobin Blood Gas A-a O2 157.0 H 214.5 H Differential Oxyhemoglobin Percent 97.4 92.4 L Blood Gas Temperature 37.0 37.0 Blood Gas Respiration 16.0 24.0 Rate Blood Gas Actual 19 28 Respiration Rate Blood Gas Modality MASK - BIPAP MASK - BIPAP FiO2 50.0 50.0 Blood Gas Pressure 15 16 Support Blood Gas Critical Value DR RODGERS Read Back Blood Gas Notified Whom MICHELLE ENCISO RCP Blood Gas Notified Time 08/10/2018 6:21:19 AM 08/10/2018 9:58:53 AM Blood Gas IPAP/EPAP 24/8 Ratio White Blood Count 9.7 Red Blood Count 4.83 Hemoglobin 13.1 L Hematocrit 43.3 Mean Corpuscular Volume 89.6 Mean Corpuscular 27.1 L Hemoglobin Mean Corpuscular 30.3 L Hemoglobin Concent Red Cell Distribution 16.4 H Width Platelet Count 177 Mean Platelet Volume 10.5 H Immature Granulocytes % 1.200 H Neutrophils % 89.7 H Lymphocytes % 5.4 L Monocytes % 3.4 Eosinophils % 0.0 Basophils % 0.3 Nucleated Red Blood 0.0 Cells % Immature Granulocytes # 0.120 H Neutrophils # 8.7 H Lymphocytes # 0.5 L Monocytes # 0.3 Eosinophils # 0.0 Basophils # 0.0 Nucleated Red Blood 0.0 Cells # Sodium Level 139 Potassium Level 4.8 Chloride Level 99 Carbon Dioxide Level 32 H Anion Gap 8 Blood Urea Nitrogen 17 Creatinine 0.84 Est Glomerular Filtrat > 60 Rate mL/min Glucose Level 139 Calcium Level 9.0 Phosphorus Level 3.6 Magnesium Level 2.6 H Medications Medication Current Medications IV Flush (NS 3 ml) 3 ml PER PROTOCOL IV ; Start 08/08/18 at 19:00 Ondansetron HCl (Zofran Inj) 4 mg Q6H PRN IV NAUSEA/VOMITING; Start 08/08/18 at 19:00 Acetaminophen (Tylenol Tab) 650 mg Q6H PRN PO .PAIN 1-3 OR TEMP Last administered on 08/09/18at 18:01; Admin Dose 650 MG; Start 08/08/18 at 19:00 Pantoprazole (Protonix Iv) 40 mg DAILY@06 IV Last administered on 08/10/18 05:19; Admin Dose 40 MG; Start 08/09/18 at 06:00 Heparin Sodium (Porcine) (Heparin (5000 Units/1ml)) 5,000 unit Q8 SC Last administered on 08/10/18at 14:44; Admin Dose 5,000 UNIT; Start 08/08/18 at 22:00 Ceftriaxone Sodium 50 ml @ 100 mls/hr Q24H IVPB Last administered on 08/10/18 11:15; Admin Dose 100 MLS/HR; Start 08/09/18 at 12:00 Azithromycin 250 ml @ 250 mls/hr Q24H IVPB Last administered on 08/10/18 13:15; Admin Dose 250 MLS/HR; Start 08/09/18 at 12:00 Albuterol/ Ipratropium (Duoneb) 3 ml Q4H RESP THERAPY PRN HHN wheezing; Start 08/08/18 at 19:00 Acetylcysteine (Mucomyst) 2 ml Q6H RESP THERAPY NEB Last administered on 08/10/18 14:39; Admin Dose 2 ML; Start 08/08/18 at 20:00 Nicotine (Nicoderm 21 Mg/ 24hr) 1 patch DAILY TRANSDERM Last administered on 08/10/18 08:45; Admin Dose 1 PATCH; Start 08/08/18 at 19:30 Lorazepam (Ativan) 2 mg Q4H PRN IV anxiety/agitation; Start 08/08/18 at 19:30 Methylprednisolone Sodium Succinate (Solu-Medrol) 40 mg Q8 IV Last administered on 08/10/18 14:42; Admin Dose 40 MG; Start 08/09/18 at 14:00 Levalbuterol (Xopenex Neb) 0.63 mg Q6H RESP THERAPY HHN Last administered on 08/10/18 14:38; Admin Dose 0.63 MG; Start 08/10/18 at 02:00 Ipratropium [place] (Atrovent 0.02% (Neb)) 0.5 mg Q6H RESP THERAPY HHN Last administered on 08/10/18 14:38; Admin Dose 0.5 MG; Start 08/10/18 at 02:00 JERMAINE DIOP MD Aug 10, 2018 15:26
[2018-08-11] VITALS (24 sets, daily range): BP systolic 94–137; BP diastolic 60–99; PULSE 84–114; RESP 14–25
[2018-08-11] MEDS: LEVALBUTEROL (NEB) 0.63 MG/3 ML AMP HHN SCH ×4 (01:07→19:34)
[2018-08-11] MEDS: IPRATROPIUM (NEB) 0.5 MG/2.5 ML AMP HHN SCH ×4 (01:07→19:34)
[2018-08-11] MEDS: ACETYLCYSTEINE 20% 4 ML VIAL NEB SCH ×4 (01:08→19:34)
[2018-08-11] MEDS: PANTOPRAZOLE 40 MG INJ IV SCH (05:36)
[2018-08-11] MEDS: METHYLPREDNISOLONE 40 MG INJ IV SCH ×3 (05:36→21:00)
[2018-08-11] MEDS: HEPARIN 5,000 UNIT/1 ML VIAL SC SCH ×3 (05:41→21:03)
--- NOTE | 2018-08-11 09:15 | PN ---
Date/Time of Note Date/Time of Note DATE: 08/11/18 TIME: 09:12 Assessment/Plan VTE Prophylaxis Risk score (from Ns)>0 risk: 2 SCD applied (from Ns): No SCD contraindicated: other (no) Pharmacological prophylaxis: heparin Lines/Catheters IV Catheter Type (from Nrs): Peripheral IV Assessment/Plan Assessment/Plan 38 yo super morbidly obese man with acute on chronic respiratory failure and R leg pain. #Bacteremia - Blood cultures growing staph - Unclear source of infection. - Pending sensitivities. #Respiratory failure - Per family, has chronic respiratory failure and what sounds like obstructive symptoms for months or years. - Likely DAMON/OHS, possibly COPD with heavy smoking history - Empiric ceftriaxone/azithro for pneumonia. Will discharge on 7 day course of levaquin. - prn albuterol/atrovent though I don't hear much wheezing - Also N-acetylcystine as mucolytic. - Case management consulted for home BiPAP - Consulted pulmonary. #R leg pain - Acute onset over 1-2 days. - Looks like venous stasis disease, possibly with superficial infection - Duplex negative for DVT - CT not definite for deep necrotizing infection - Will discharge on 7 days of levaquin. - PT for ambulation. #pre-diabetes - New diagnosis with HgbA1C 6.0 - Diet changes and weight loss, may be a good candidate for metformin due to weight loss effect but will not start this now. #Tobacco use - Nicotine patch DVT: heparin GI: protonix Result Diagram: 08/11/18 0504 08/11/18 0504 Subjective 24 Hr Interval Summary Free Text/Dictation No acute overnight events. Patient awake, doing well. Requesting to go home or at least to eat. Family at bedside, I updated them on the plan. Exam/Review of Systems Exam Vitals Vital Signs Date Temp Pulse Resp B/P (MAP) Pulse Ox O2 O2 Flow FiO2 Time Delivery Rate 08/11/18 97.9 87 16 120/87 95 BIPAP 08:00 (98) 08/11/18 50 05:20 08/11/18 15.0 03:00 Intake and Output 08/10/18 08/10/18 08/11/18 1515:00 23:00 07:00 IntakeIntake Total 500 ml 650 ml 600 ml BalanceBalance 500 ml 650 ml 600 ml Exam Gen: Super morbidly obese man sitting up in bed breathing comfortably on BiPAP mask Eyes: PERRL, no icterus. HEENT: Moist mucous membranes, clear oropharynx Neck: Hyperpigmented with numerous skin tags. Card: Regular rate and rhythm, distant heart sounds Pulm: Distant breath sounds bilaterally Abd: Very distended, soft, nontender. Ext: RLE edema and erythema almost completely resolved, full range of motion, not very tender. LLE obese, no redness. Skin: Several superficial ulcers on inferior pannus folds. Results Results 24hrs Laboratory Tests Test 08/10/18 09:19 08/10/18 10:00 08/11/18 05:04 08/11/18 07:00 Blood Gas Blood arterial Blood arterial Specimen Source Arterial Blood 08/10/2018 9:45:53 08/11/2018 7:30:25 Date Drawn AM AM Arterial Blood 7.324 L 7.400 pH (Temp corrected) Arterial Blood 65.0 H 48.9 H pCO2 (Temp correct) Arterial Blood 68.9 L 96.4 pO2 (Temp corrected) Arterial Blood 33.0 H 29.6 H HCO3 Arterial Blood 4.9 H 3.9 H Base Excess Arterial Blood 92.9 L 97.3 Oxygen Saturatio n Kojo Test ACCEPTAB ACCEPTAB Arterial Blood Right Radial Right Radial Gas Puncture Site Arterial 0.4 0.3 Blood Carboxyhem oglobin Arterial Blood 0.1 0.1 Methemoglobin Blood Gas A-a O2 214.5 H 205.1 H Differential Oxyhemoglobin 92.4 L 96.9 Percent Blood Gas 37.0 37.0 Temperature Blood Gas 24.0 24.0 Respiration Rate Blood Gas Actual 28 24 Respiration Rate Blood Gas MASK - BIPAP MASK - BIPAP Modality FiO2 50.0 50.0 Blood Gas 16 16 Pressure Support Blood Gas 24/8 24/8 IPAP/EPAP Ratio Blood Gas [facility] DT Notified Whom Blood Gas 08/10/2018 9:58:53 08/11/2018 7:52:31 Notified Time AM AM White Blood 9.7 9.9 Count Red Blood Count 4.83 4.70 Hemoglobin 13.1 L 12.7 L Hematocrit 43.3 41.4 L Mean Corpuscular 89.6 88.1 Volume Mean Corpuscular 27.1 L 27.0 L Hemoglobin Mean Corpuscular 30.3 L 30.7 L Hemoglobin Christa nt Red Cell 16.4 H 16.3 H Distribution Width Platelet Count 177 213 # Mean Platelet 10.5 H 11.0 H Volume Immature 1.200 H 1.200 H Granulocytes % Neutrophils % 89.7 H 85.3 H Lymphocytes % 5.4 L 8.7 L Monocytes % 3.4 4.7 Eosinophils % 0.0 0.0 Basophils % 0.3 0.1 Nucleated Red 0.0 0.2 H Blood Cells % Immature 0.120 H 0.120 H Granulocytes # Neutrophils # 8.7 H 8.4 H Lymphocytes # 0.5 L 0.9 Monocytes # 0.3 0.5 Eosinophils # 0.0 0.0 Basophils # 0.0 0.0 Nucleated Red 0.0 0.0 Blood Cells # Sodium Level 139 140 Potassium Level 4.8 4.5 Chloride Level 99 98 Carbon Dioxide 32 H 35 H Level Anion Gap 8 7 Blood Urea 17 26 H Nitrogen Creatinine 0.84 1.00 Est Glomerular > 60 > 60 Filtrat Rate mL/min Glucose Level 139 130 Calcium Level 9.0 9.2 Phosphorus Level 3.6 3.8 Magnesium Level 2.6 H 2.6 H Medications Medication Current Medications IV Flush (NS 3 ml) 3 ml PER PROTOCOL IV ; Start 08/08/18 at 19:00 Ondansetron HCl (Zofran Inj) 4 mg Q6H PRN IV NAUSEA/VOMITING; Start 08/08/18 at 19:00 Acetaminophen (Tylenol Tab) 650 mg Q6H PRN PO .PAIN 1-3 OR TEMP Last administered on 08/09/18at 18:01; Admin Dose 650 MG; Start 08/08/18 at 19:00 Pantoprazole (Protonix Iv) 40 mg DAILY@06 IV Last administered on 08/11/18at 0 5:36; Admin Dose 40 MG; Start 08/09/18 at 06:00 Heparin Sodium (Porcine) (Heparin (5000 Units/1ml)) 5,000 unit Q8 SC Last administered on 08/11/18at 05:41; Admin Dose 5,000 UNIT; Start 08/08/18 at 22:00 Ceftriaxone Sodium 50 ml @ 100 mls/hr Q24H IVPB Last administered on 08/10/18at 11:15; Admin Dose 100 MLS/HR; Start 08/09/18 at 12:00 Azithromycin 250 ml @ 250 mls/hr Q24H IVPB Last administered on 08/10/18 13:15; Admin Dose 250 MLS/HR; Start 08/09/18 at 12:00 Albuterol/ Ipratropium (Duoneb) 3 ml Q4H RESP THERAPY PRN HHN wheezing; Start 08/08/18 at 19:00 Acetylcysteine (Mucomyst) 2 ml Q6H RESP THERAPY NEB Last administered on 08/11/18 08:06; Admin Dose 2 ML; Start 08/08/18 at 20:00 Nicotine (Nicoderm 21 Mg/ 24hr) 1 patch DAILY TRANSDERM Last administered on 08/10/18 08:45; Admin Dose 1 PATCH; Start 08/08/18 at 19:30 Lorazepam (Ativan) 2 mg Q4H PRN IV anxiety/agitation; Start 08/08/18 at 19:30 Methylprednisolone Sodium Succinate (Solu-Medrol) 40 mg Q8 IV Last administered on 08/11/18 05:36; Admin Dose 40 MG; Start 08/09/18 at 14:00 Levalbuterol (Xopenex Neb) 0.63 mg Q6H RESP THERAPY HHN Last administered on 08/11/18 08:06; Admin Dose 0.63 MG; Start 08/10/18 at 02:00 Ipratropium [place] (Atrovent 0.02% (Neb)) 0.5 mg Q6H RESP THERAPY HHN Last administered on 08/11/18 08:06; Admin Dose 0.5 MG; Start 08/10/18 at 02:00 JERMAINE DIOP MD Aug 11, 2018 09:15
--- NOTE | 2018-08-11 10:09 | CONS ---
Consult Date/Type/Reason Admit Date/Time Aug 08, 2018 at 18:27 Initial Consult Date 08/09/18 Type of Consultation: Pulm/CCM Date/Time of Note DATE: 08/11/18 TIME: 10:01 Subjective Transferred to ICU for acute on chronic hypercapnic respiratory failure. Remains on BiPAP. Alert and oriented. Objective Vitals Vital Signs Date Temp Pulse Resp B/P (MAP) Pulse Ox O2 O2 Flow FiO2 Time Delivery Rate 08/11/18 91 20 125/85 93 BIPAP 09:00 (98) 08/11/18 97.9 08:00 08/11/18 50 05:20 08/11/18 15.0 03:00 Intake and Output 08/10/18 08/10/18 08/11/18 1515:00 23:00 07:00 IntakeIntake Total 500 ml 650 ml 600 ml BalanceBalance 500 ml 650 ml 600 ml Exam HEENT: Neck supple; no JVD; no LAD CVS: RRR, S1 and S2 CHEST: Distant BS ABD: Soft, NT, + BS EXT: No c/c; + edema Results/Medications Result Diagram: 08/11/18 0504 08/11/18 0504 Results 24 hrs Laboratory Tests Test 08/11/18 05:04 08/11/18 07:00 White Blood Count 9.9 Red Blood Count 4.70 Hemoglobin 12.7 L Hematocrit 41.4 L Mean Corpuscular Volume 88.1 Mean Corpuscular Hemoglobin 27.0 L Mean Corpuscular Hemoglobin Concent 30.7 L Red Cell Distribution Width 16.3 H Platelet Count 213 # Mean Platelet Volume 11.0 H Immature Granulocytes % 1.200 H Neutrophils % 85.3 H Lymphocytes % 8.7 L Monocytes % 4.7 Eosinophils % 0.0 Basophils % 0.1 Nucleated Red Blood Cells % 0.2 H Immature Granulocytes # 0.120 H Neutrophils # 8.4 H Lymphocytes # 0.9 Monocytes # 0.5 Eosinophils # 0.0 Basophils # 0.0 Nucleated Red Blood Cells # 0.0 Sodium Level 140 Potassium Level 4.5 Chloride Level 98 Carbon Dioxide Level 35 H Anion Gap 7 Blood Urea Nitrogen 26 H Creatinine 1.00 Est Glomerular Filtrat Rate mL/min > 60 Glucose Level 130 Calcium Level 9.2 Phosphorus Level 3.8 Magnesium Level 2.6 H Blood Gas Specimen Source Blood arterial Arterial Blood Date Drawn 08/11/2018 7:30:25 AM Arterial Blood pH (Temp corrected) 7.400 Arterial Blood pCO2 (Temp correct) 48.9 H Arterial Blood pO2 (Temp corrected) 96.4 Arterial Blood HCO3 29.6 H Arterial Blood Base Excess 3.9 H Arterial Blood Oxygen Saturation 97.3 Kojo Test ACCEPTAB Arterial Blood Gas Puncture Site Right Radial Arterial Blood Carboxyhemoglobin 0.3 Arterial Blood Methemoglobin 0.1 Blood Gas A-a O2 Differential 205.1 H Oxyhemoglobin Percent 96.9 Blood Gas Temperature 37.0 Blood Gas Respiration Rate 24.0 Blood Gas Actual Respiration Rate 24 Blood Gas Modality MASK - BIPAP FiO2 50.0 Blood Gas Pressure Support 16 Blood Gas IPAP/EPAP Ratio 29/12 Blood Gas Notified Whom DT Blood Gas Notified Time 08/11/2018 7:52:31 AM Home Meds No Active Prescriptions or Reported Meds Medications Current Medications IV Flush (NS 3 ml) 3 ml PER PROTOCOL IV ; Start 08/08/18 at 19:00 Ondansetron HCl (Zofran Inj) 4 mg Q6H PRN IV NAUSEA/VOMITING; Start 08/08/18 at 19:00 Acetaminophen (Tylenol Tab) 650 mg Q6H PRN PO .PAIN 1-3 OR TEMP Last administered on 08/09/18 18:01; Admin Dose 650 MG; Start 08/08/18 at 19:00 Pantoprazole (Protonix Iv) 40 mg DAILY@06 IV Last administered on 08/11/18 05:36; Admin Dose 40 MG; Start 08/09/18 at 06:00 Heparin Sodium (Porcine) (Heparin (5000 Units/1ml)) 5,000 unit Q8 SC Last administered on 08/11/18 05:41; Admin Dose 5,000 UNIT; Start 08/08/18 at 22:00 Ceftriaxone Sodium 50 ml @ 100 mls/hr Q24H IVPB Last administered on 08/10/18 11:15; Admin Dose 100 MLS/HR; Start 08/09/18 at 12:00 Azithromycin 250 ml @ 250 mls/hr Q24H IVPB Last administered on 08/10/18 13:15; Admin Dose 250 MLS/HR; Start 08/09/18 at 12:00 Albuterol/ Ipratropium (Duoneb) 3 ml Q4H RESP THERAPY PRN HHN wheezing; Start 08/08/18 at 19:00 Acetylcysteine (Mucomyst) 2 ml Q6H RESP THERAPY NEB Last administered on 08/11/18at 08:06; Admin Dose 2 ML; Start 08/08/18 at 20:00 Nicotine (Nicoderm 21 Mg/ 24hr) 1 patch DAILY TRANSDERM Last administered on 08/10/18at 08:45; Admin Dose 1 PATCH; Start 08/08/18 at 19:30 Lorazepam (Ativan) 2 mg Q4H PRN IV anxiety/agitation; Start 08/08/18 at 19:30 Methylprednisolone Sodium Succinate (Solu-Medrol) 40 mg Q8 IV Last administered on 08/11/18at 05:36; Admin Dose 40 MG; Start 08/09/18 at 14:00 Levalbuterol (Xopenex Neb) 0.63 mg Q6H RESP THERAPY HHN Last administered on 08/11/18 08:06; Admin Dose 0.63 MG; Start 08/10/18 at 02:00 Ipratropium [place] (Atrovent 0.02% (Neb)) 0.5 mg Q6H RESP THERAPY HHN Last administered on 08/11/18 08:06; Admin Dose 0.5 MG; Start 08/10/18 at 02:00 Assessment/Plan Assessment/Plan (Daily) IMP: 1. Acute on chronic hypercapnic/hypoxemic resp failure--2/2 OHS/DAMON, possibly tipped over by mild decompensated RHF 2. Coag negative bacteremia--possibly contaminant 3. DM 4. OHS/DAMON RECS: 1. Gentle diuresis 2. TTE to eval PA pressures/RV fxn 3. De-escalate abx 4. Repeat Cx 5. Observe off BiPAP; use ETCO2 6. Nocturnal BiPAP 40 min cc time case d/w Dr. Rosas, RT and AISHA HERNANDEZ MD Aug 11, 2018 10:09
[2018-08-11] MEDS: NICOTINE (21 MG/24 HR) PATCH TRANSDERM SCH (10:43)
[2018-08-11] MEDS: FUROSEMIDE 20 MG INJ IV SCH ×2 (10:45→18:53)
[2018-08-11] MEDS: CEFTRIAXONE 1 GM/50 ML (PMX) 50 ML IVPB SCH (11:43)
[2018-08-11] MEDS: AZITHROMYCIN 500MG/NS (PMX) 250 ML IVPB SCH (12:32)
--- NOTE | 2018-08-11 19:15 | RADRPT ---
Echocardiogram Report Patient Name: Franki ORTEGA ID: [id number] : 1980 (38y 1m)Study Date: 08/11/2018 12:19:24 PM Gender: MAccession #: [id number] Tech: Chalino MckeonDANA martinez Location: ICU 102-A Ref.Physician: AISHA SEARS Height(Cm): BSA: Weight(Kg): Quality: Technically Difficult StudyAccount #: Procedures: Echocardiographic Report: Transthoracic echocardiogram with complete 2D, M-Mode, and doppler examination. Indications: Evaluate RV Function/ PA press. Measurements: 2D/M Mode Doppler Measurement Value Normal Range Measurement Value Normal Range LVIDd 2D 4.1 [ 4.2 - 5.8 ] cm AV Peak [place] 1.6 [ 100.0 - 170.0 ] cm/se c LVIDs 2D 2.6 [ 2.5 - 4.0 ] cm AV Peak PG 10.0 [ 2.0 - 9.0 ] mmHg LVPWd 2D 1.1 [ 0.6 - 1.0 ] cm LVOT Peak [place] 0.7 [ 70.0 - 110.0 ] cm/sec IVSd 2D 1.0 [ 0.6 - 1.0 ] cm LVOT Peak PG 2.0 [ 2.0 - 6.0 ] mmHg AoR Diam 2D 2.9 [ 2.6 - 3.4 ] cm MV E Peak Francisco 1.0 [ 60.0 - 130.0 ] cm/sec EDV 2D 72.5 [ 62.0 - 150.0 ] ml MV A Peak [place] 0.2 [ 100.0 - 120.0 ] cm/se c ESV 2D 25.6 [ 21.0 - 61.0 ] ml MV E/A 4.5 [ 0.8 - 1.5 ] ratio EF 2D 64.7 [ 52.0 - 72.0 ] percent MV PHT 61.0 [ 20.0 - 100.0 ] msec LA Dimen 2D 3.8 [ 3.0 - 4.0 ] cm MV Decel Time 208 [ 104 - 258 ] msec MV Decel [place] 5 Lat E` Francisco 0.1 [ 10.0 - 15.0 ] cm/sec Lateral E/E` 7.6 [ 1.0 - 2.0 ] ratio Med E` Francisco 0.1 cm/sec MV E/A 4.5 [ 0.8 - 1.5 ] ratio MVA PHT 3.6 [ 2.0 - 4.0 ] cm2 Findings: Left Ventricle: Lower limits of normal systolic function. Normal left ventricular wall thickness. Mild concentric left ventricular hypertrophy. Ejection fraction is visually estimated at 50-55 %. Tissue Doppler/Mitral Doppler indices are within normal limits. Right Ventricle: Normal right ventricular size. Normal right ventricular systolic function. Left Atrium: The left atrium is normal in size. Right Atrium: The right atrium is normal in size. Atrial Septum: Normal atrial septum. Ventricular septum: Normal/intact ventricular septum. Mitral Valve: Normal appearance of the mitral valve. Trace mitral regurgitation. Aortic Valve: Normal appearance of the aortic valve. No aortic regurgitation. Tricuspid Valve: Normal appearance of the tricuspid valve. Unable to obtain RVSP due to minimal presence of tricuspid regurgitation. Pulmonic Valve: Normal pulmonic valve appearance. Pericardium: Normal pericardium with no significant pericardial effusion. Aorta: Normal aortic root. IVC: The IVC is not well visualized. Pulmonary Artery: Not well visualized. Conclusions: Lower limits of normal systolic function. Normal left ventricular wall thickness. Mild concentric left ventricular hypertrophy. Ejection fraction is visually estimated at 50-55 %. Tissue Doppler/Mitral Doppler indices are within normal limits. Normal appearance of the mitral valve. Trace mitral regurgitation. Normal appearance of the tricuspid valve. Unable to obtain RVSP due to minimal presence of tricuspid regurgitation. Electronically Signed By: Rodrigo Brown 2018-08-11 19:15:08 PDT
[2018-08-12] VITALS (16 sets, daily range): BP systolic 113–145; BP diastolic 61–93; PULSE 75–102; RESP 22–27
[2018-08-12] MEDS: IPRATROPIUM (NEB) 0.5 MG/2.5 ML AMP HHN SCH ×4 (01:34→19:31)
[2018-08-12] MEDS: LEVALBUTEROL (NEB) 0.63 MG/3 ML AMP HHN SCH ×4 (01:34→19:31)
[2018-08-12] MEDS: ACETYLCYSTEINE 20% 4 ML VIAL NEB SCH ×4 (01:34→19:31)
[2018-08-12] MEDS: FUROSEMIDE 20 MG INJ IV SCH ×2 (06:10→18:28)
[2018-08-12] MEDS: PANTOPRAZOLE 40 MG INJ IV SCH (06:10)
[2018-08-12] MEDS: METHYLPREDNISOLONE 40 MG INJ IV SCH ×3 (06:10→21:16)
[2018-08-12] MEDS: HEPARIN 5,000 UNIT/1 ML VIAL SC SCH ×3 (06:23→21:37)
[2018-08-12] MEDS: NICOTINE (21 MG/24 HR) PATCH TRANSDERM SCH (09:05)
[2018-08-12] MEDS: AZITHROMYCIN 500MG/NS (PMX) 250 ML IVPB SCH (12:10)
[2018-08-12] MEDS: CEFTRIAXONE 1 GM/50 ML (PMX) 50 ML IVPB SCH (12:10)
--- NOTE | 2018-08-12 12:12 | CONS ---
Consult Date/Type/Reason Admit Date/Time Aug 08, 2018 at 18:27 Initial Consult Date 08/09/18 Type of Consultation: Pulm/CCM Date/Time of Note DATE: 08/12/18 TIME: 12:08 Subjective Doing better. More alert and awake. Also ambulating to restroom. Room air SpO2 ~ 84-85%. Objective Vitals Vital Signs Date Temp Pulse Resp B/P (MAP) Pulse Ox O2 O2 Flow FiO2 Time Delivery Rate 08/12/18 98.3 82 24 139/93 90 11:43 (108) 08/12/18 50 07:54 08/12/18 Nasal 4.0 07:37 Cannula Intake and Output 08/11/18 08/11/18 08/12/18 1515:00 23:00 07:00 IntakeIntake Total 1020 ml 200 ml OutputOutput Total 1700 ml BalanceBalance -680 ml 200 ml Exam HEENT: Neck supple; no JVD; no LAD CVS: RRR, S1 and S2 CHEST: Distant BS ABD: Obese, soft, NT, + BS EXT: No c/c; + edema Results/Medications Result Diagram: 08/12/18 0549 08/12/18 0549 Results 24 hrs Laboratory Tests Test 08/12/18 05:00 08/12/18 05:49 Blood Gas Specimen Source Blood arterial Arterial Blood Date Drawn 08/12/2018 6:08:53 AM Arterial Blood pH (Temp corrected) 7.386 Arterial Blood pCO2 (Temp correct) 53.3 H Arterial Blood pO2 (Temp corrected) 90.9 Arterial Blood HCO3 31.3 H Arterial Blood Base Excess 4.9 H Arterial Blood Oxygen Saturation 96.2 Kojo Test ACCEPTAB Arterial Blood Gas Puncture Site Right Radial Arterial Blood Carboxyhemoglobin 0.3 Arterial Blood Methemoglobin 0 Blood Gas A-a O2 Differential 205.6 H Oxyhemoglobin Percent 95.9 Blood Gas Temperature 37.0 Blood Gas Respiration Rate 24.0 Blood Gas Actual Respiration Rate 24 Blood Gas Modality MASK - BIPAP FiO2 50.0 Blood Gas Inspiratory Time 0.8 Blood Gas IPAP/EPAP Ratio 29/12 Blood Gas Notified Whom AA Blood Gas Notified Time 08/12/2018 6:22:57 AM White Blood Count 8.8 Red Blood Count 4.73 Hemoglobin 12.7 L Hematocrit 41.6 L Mean Corpuscular Volume 87.9 Mean Corpuscular Hemoglobin 26.8 L Mean Corpuscular Hemoglobin Concent 30.5 L Red Cell Distribution Width 16.4 H Platelet Count 219 Mean Platelet Volume 10.6 H Immature Granulocytes % 1.800 H Neutrophils % 78.8 H Lymphocytes % 12.3 L Monocytes % 7.0 Eosinophils % 0.0 Basophils % 0.1 Nucleated Red Blood Cells % 0.2 H Immature Granulocytes # 0.160 H Neutrophils # 6.9 Lymphocytes # 1.1 Monocytes # 0.6 Eosinophils # 0.0 Basophils # 0.0 Nucleated Red Blood Cells # 0.0 Sodium Level 141 Potassium Level 4.8 Chloride Level 100 Carbon Dioxide Level 32 H Anion Gap 9 Blood Urea Nitrogen 33 H Creatinine 0.93 Est Glomerular Filtrat Rate mL/min > 60 Glucose Level 113 Calcium Level 9.2 Home Meds No Active Prescriptions or Reported Meds Medications Current Medications IV Flush (NS 3 ml) 3 ml PER PROTOCOL IV ; Start 08/08/18 at 19:00 Ondansetron HCl (Zofran Inj) 4 mg Q6H PRN IV NAUSEA/VOMITING; Start 08/08/18 at 19:00 Acetaminophen (Tylenol Tab) 650 mg Q6H PRN PO .PAIN 1-3 OR TEMP Last admin istered on 08/09/18 18:01; Admin Dose 650 MG; Start 08/08/18 at 19:00 Pantoprazole (Protonix Iv) 40 mg DAILY@06 IV Last administered on 08/12/18 06:10; Admin Dose 40 MG; Start 08/09/18 at 06:00 Heparin Sodium (Porcine) (Heparin (5000 Units/1ml)) 5,000 unit Q8 SC Last administered on 08/12/18 06:23; Admin Dose 5,000 UNIT; Start 08/08/18 at 22:00 Ceftriaxone Sodium 50 ml @ 100 mls/hr Q24H IVPB Last administered on 08/11/18 11:43; Admin Dose 100 MLS/HR; Start 08/09/18 at 12:00 Azithromycin 250 ml @ 250 mls/hr Q24H IVPB Last administered on 08/11/18 12:32; Admin Dose 250 MLS/HR; Start 08/09/18 at 12:00 Albuterol/ Ipratropium (Duoneb) 3 ml Q4H RESP THERAPY PRN HHN wheezing; Start 08/08/18 at 19:00 Acetylcysteine (Mucomyst) 2 ml Q6H RESP THERAPY NEB Last administered on 08/12/18 07:43; Admin Dose 2 ML; Start 08/08/18 at 20:00 Nicotine (Nicoderm 21 Mg/ 24hr) 1 patch DAILY TRANSDERM Last administered on 08/12/18 09:05; Admin Dose 1 PATCH; Start 08/08/18 at 19:30 Lorazepam (Ativan) 2 mg Q4H PRN IV anxiety/agitation; Start 08/08/18 at 19:30 Methylprednisolone Sodium Succinate (Solu-Medrol) 40 mg Q8 IV Last administered on 08/12/18 06:10; Admin Dose 40 MG; Start 08/09/18 at 14:00 Levalbuterol (Xopenex Neb) 0.63 mg Q6H RESP THERAPY HHN Last administered on 08/12/18 07:43; Admin Dose 0.63 MG; Start 08/10/18 at 02:00 Ipratropium [place] (Atrovent 0.02% (Neb)) 0.5 mg Q6H RESP THERAPY HHN Last administered on 08/12/18 07:43; Admin Dose 0.5 MG; Start 08/10/18 at 02:00 Furosemide (Lasix) 20 mg BID DIURETICS IV Last administered on 08/12/18 06:10; Admin Dose 20 MG; Start 08/11/18 at 10:30 Assessment/Plan Assessment/Plan (Daily) IMP: 1. Acute on chronic hypercapnic/hypoxemic resp failure--2/2 OHS/DAMON, possibly tipped over by mild decompensated RHF 2. Coag negative bacteremia--possibly contaminant 3. DM 4. OHS/DAMON RECS: 1. Continue diuresis; follow I/O's and renal fxn 2. Arrange PSG XENIA pr 3. De-escalate abx 4. Repeat Cx 5. Limit O2 use without positive pressure ventilation as it should be only be used in conjunction with positive airway pressure. 6. Nocturnal BiPAP AISHA SEARS MD Aug 12, 2018 12:12
--- NOTE | 2018-08-12 15:39 | PN ---
Date/Time of Note Date/Time of Note DATE: 08/12/18 TIME: 15:35 Assessment/Plan VTE Prophylaxis Risk score (from Nsg)>0 risk: 3 SCD applied (from Nsg): Yes Pharmacological prophylaxis: heparin Lines/Catheters IV Catheter Type (from Nrsg): Peripheral IV Assessment/Plan Assessment/Plan 38 yo super morbidly obese man with acute on chronic respiratory failure and R leg pain. #Bacteremia - Blood cultures growing coag neg staph, probably contaminant. - Will stop antibiotics and repeat cultures. - No evidence of sepsis since admission. #Respiratory failure - Per family, has chronic respiratory failure and what sounds like obstructive symptoms for months or years. - Likely DAMON/OHS, possibly COPD with heavy smoking history - Avoid nasal cannula and other supplemental O2 when off BiPAP; this may worsen hypercapnia. - Also N-acetylcystine as mucolytic. - Case management consulted for home BiPAP - Pulmoanry following #R leg pain - Acute onset over 1-2 days. - Looks like venous stasis disease, possibly with superficial infection - Duplex negative for DVT - CT not definite for deep necrotizing infection - Now completely resolved. #pre-diabetes - New diagnosis with HgbA1C 6.0 - Diet changes and weight loss, may be a good candidate for metformin due to weight loss effect but will not start this now. #Tobacco use - Nicotine patch DVT: heparin GI: protonix Result Diagram: 08/12/18 0549 08/12/1849 Subjective 24 Hr Interval Summary Free Text/Dictation Patient feeling well today, wants to go home. Slept well, used BiPAP last night. Ambulating on room air more than 30 feet today. Desats to high 80s at rest but asymptomatic (relative to baseline) Exam/Review of Systems Exam Vitals Vital Signs Date Temp Pulse Resp B/P (MAP) Pulse Ox O2 O2 Flow FiO2 Time Delivery Rate 08/12/18 4.0 15:29 08/12/18 84 20 94 Nasal 13:15 Cannula 08/12/18 98.3 139/93 11:43 (108) 08/12/18 50 07:54 Intake and Output 08/11/18 08/11/18 08/12/18 1515:00 23:00 07:00 IntakeIntake Total 1020 ml 200 ml OutputOutput Total 1700 ml BalanceBalance -680 ml 200 ml Exam Gen: Super morbidly obese man sitting up in bed breathing comfortably on BiPAP mask Eyes: PERRL, no icterus. HEENT: Moist mucous membranes, clear oropharynx Neck: Hyperpigmented with numerous skin tags. Card: Regular rate and rhythm, distant heart sounds Pulm: Distant breath sounds bilaterally Abd: Very distended, soft, nontender. Ext: RLE edema and erythema almost completely resolved, full range of motion, not very tender. LLE obese, no redness. Skin: Several superficial ulcers on inferior pannus folds. Results Results 24hrs Laboratory Tests Test 08/12/18 05:00 08/12/18 05:49 Blood Gas Specimen Source Blood arterial Arterial Blood Date Drawn 08/12/2018 6:08:53 AM Arterial Blood pH (Temp corrected) 7.386 Arterial Blood pCO2 (Temp correct) 53.3 H Arterial Blood pO2 (Temp corrected) 90.9 Arterial Blood HCO3 31.3 H Arterial Blood Base Excess 4.9 H Arterial Blood Oxygen Saturation 96.2 Kojo Test ACCEPTAB Arterial Blood Gas Puncture Site Right Radial Arterial Blood Carboxyhemoglobin 0.3 Arterial Blood Methemoglobin 0 Blood Gas A-a O2 Differential 205.6 H Oxyhemoglobin Percent 95.9 Blood Gas Temperature 37.0 Blood Gas Respiration Rate 24.0 Blood Gas Actual Respiration Rate 24 Blood Gas Modality MASK - BIPAP FiO2 50.0 Blood Gas Inspiratory Time 0.8 Blood Gas IPAP/EPAP Ratio 24/8 Blood Gas Notified Whom AA Blood Gas Notified Time 08/12/2018 6:22:57 AM White Blood Count 8.8 Red Blood Count 4.73 Hemoglobin 12.7 L Hematocrit 41.6 L Mean Corpuscular Volume 87.9 Mean Corpuscular Hemoglobin 26.8 L Mean Corpuscular Hemoglobin Concent 30.5 L Red Cell Distribution Width 16.4 H Platelet Count 219 Mean Platelet Volume 10.6 H Immature Granulocytes % 1.800 H Neutrophils % 78.8 H Lymphocytes % 12.3 L Monocytes % 7.0 Eosinophils % 0.0 Basophils % 0.1 Nucleated Red Blood Cells % 0.2 H Immature Granulocytes # 0.160 H Neutrophils # 6.9 Lymphocytes # 1.1 Monocytes # 0.6 Eosinophils # 0.0 Basophils # 0.0 Nucleated Red Blood Cells # 0.0 Sodium Level 141 Potassium Level 4.8 Chloride Level 100 Carbon Dioxide Level 32 H Anion Gap 9 Blood Urea Nitrogen 33 H Creatinine 0.93 Est Glomerular Filtrat Rate mL/min > 60 Glucose Level 113 Calcium Level 9.2 Medications Medication Current Medications IV Flush (NS 3 ml) 3 ml PER PROTOCOL IV ; Start 08/08/18 at 19:00 Ondansetron HCl (Zofran Inj) 4 mg Q6H PRN IV NAUSEA/VOMITING; Start 08/08/18 at 19:00 Acetaminophen (Tylenol Tab) 650 mg Q6H PRN PO .PAIN 1-3 OR TEMP Last administered on 08/09/18 18:01; Admin Dose 650 MG; Start 08/08/18 at 19:00 Pantoprazole (Protonix Iv) 40 mg DAILY@06 IV Last administered on 08/12/18 06 :10; Admin Dose 40 MG; Start 08/09/18 at 06:00 Heparin Sodium (Porcine) (Heparin (5000 Units/1ml)) 5,000 unit Q8 SC Last administered on 08/12/18 06:23; Admin Dose 5,000 UNIT; Start 08/08/18 at 22:00 Ceftriaxone Sodium 50 ml @ 100 mls/hr Q24H IVPB Last administered on 08/12/18 12:10; Admin Dose 100 MLS/HR; Start 08/09/18 at 12:00 Azithromycin 250 ml @ 250 mls/hr Q24H IVPB Last administered on 08/12/18 12:10; Admin Dose 250 MLS/HR; Start 08/09/18 at 12:00 Albuterol/ Ipratropium (Duoneb) 3 ml Q4H RESP THERAPY PRN HHN wheezing; Start 08/08/18 at 19:00 Acetylcysteine (Mucomyst) 2 ml Q6H RESP THERAPY NEB Last administered on 08/12/18 13:05; Admin Dose 2 ML; Start 08/08/18 at 20:00 Nicotine (Nicoderm 21 Mg/ 24hr) 1 patch DAILY TRANSDERM Last administered on 08/12/18 09:05; Admin Dose 1 PATCH; Start 08/08/18 at 19:30 Lorazepam (Ativan) 2 mg Q4H PRN IV anxiety/agitation; Start 08/08/18 at 19:30 Methylprednisolone Sodium Succinate (Solu-Medrol) 40 mg Q8 IV Last administered on 08/12/18 06:10; Admin Dose 40 MG; Start 08/09/18 at 14:00 Levalbuterol (Xopenex Neb) 0.63 mg Q6H RESP THERAPY HHN Last administered on 08/12/18 13:05; Admin Dose 0.63 MG; Start 08/10/18 at 02:00 Ipratropium [place] (Atrovent 0.02% (Neb)) 0.5 mg Q6H RESP THERAPY HHN Last administered on 08/12/18 13:05; Admin Dose 0.5 MG; Start 08/10/18 at 02:00 Furosemide (Lasix) 20 mg BID DIURETICS IV Last administered on 08/12/18 06:10; Admin Dose 20 MG; Start 08/11/18 at 10:30 JERMAINE DIOP MD Aug 12, 2018 15:39
[2018-08-13] VITALS (12 sets, daily range): BP systolic 117–139; BP diastolic 66–90; PULSE 67–103; RESP 18–24
[2018-08-13] MEDS: IPRATROPIUM (NEB) 0.5 MG/2.5 ML AMP HHN SCH ×4 (02:14→20:11)
[2018-08-13] MEDS: LEVALBUTEROL (NEB) 0.63 MG/3 ML AMP HHN SCH ×4 (02:14→20:11)
[2018-08-13] MEDS: ACETYLCYSTEINE 20% 4 ML VIAL NEB SCH ×4 (02:14→20:11)
[2018-08-13] MEDS: PANTOPRAZOLE 40 MG INJ IV SCH (05:00)
[2018-08-13] MEDS: METHYLPREDNISOLONE 40 MG INJ IV SCH (05:00)
[2018-08-13] MEDS: FUROSEMIDE 20 MG INJ IV SCH ×2 (05:01→17:31)
[2018-08-13] MEDS: HEPARIN 5,000 UNIT/1 ML VIAL SC SCH ×3 (05:07→21:19)
[2018-08-13] MEDS: NICOTINE (21 MG/24 HR) PATCH TRANSDERM SCH (08:36)
--- NOTE | 2018-08-13 11:09 | PN ---
Date/Time of Note Date/Time of Note DATE: 08/13/18 TIME: 11:00 Assessment/Plan VTE Prophylaxis Risk score (from Nsg)>0 risk: 4 SCD applied (from Ns): No SCD contraindicated: other Pharmacological prophylaxis: heparin Lines/Catheters IV [facility]from [facility] [facility] Assessment/Plan Hospital Course S: Patient had no acute events overnight. Nurse instructed to keep patient's O2 saturations between 88-92%. Seen by pulmonary team yesterday. O: VS -see below PE: Gen: Super morbidly obese man sitting up in bed, presently on nasal cannula oxygen Eyes: PERRL, no icterus. HEENT: Moist mucous membranes, clear oropharynx Neck: Hyperpigmented with numerous skin tags. Card: Regular rate and rhythm, distant heart sounds Pulm: Some distant breath sounds bilaterally Abd: Obese, otherwise soft, nontender. Ext: RLE edema and erythema almost completely resolved, full range of motion, not very tender. LLE obese, no redness. Skin: Several superficial ulcers on inferior pannus folds. 2D ECHO: Conclusions: Lower limits of normal systolic function. Normal left ventricular wall thickness. Mild concentric left ventricular hypertrophy. Ejection fraction is visually estimated at 50-55 %. Tissue Doppler/Mitral Doppler indices are within normal limits. Normal appearance of the mitral valve. Trace mitral regurgitation. Normal appearance of the tricuspid valve. Unable to obtain RVSP due to minimal presence of tricuspid regurgitation. Assessment/Plan: 38 yo super morbidly obese man with acute on chronic respiratory failure and R leg pain. #Acute on chronic hypercapnic/hypoxemic resp failure--2/2 OHS/DAMON, patient also with heavy smoking history, possibly tipped over by mild decompensated RHF- Per family, has chronic respiratory failure and what sounds like obstructive symptoms for months or years. -Maintain O2 sats between 88-92% -Continue N-acetylcystine as mucolytic, patient also on IV Lasix which we will change to p.o. today, continue duo nebs as needed, and switch IV steroids to p.o. today - Case management consulted for home BiPAP - this apparently has been approved once patient's insurance goes through, per discussion with case management team today. We will follow-up on this. -Follow-up recommendations from Pulmonary team as well #Bacteremia- Blood cultures growing coag neg staph, probably contaminant- No ev idence of sepsis since admission. -Have stopped antibiotics and follow-up results of repeat cultures. #R leg pain- Acute onset over 1-2 days- Looks like venous stasis disease, possibly with superficial infection- Duplex negative for DVT- CT not definite for deep necrotizing infection Now completely resolved. -Monitor #pre-diabetes- New diagnosis with HgbA1C 6.0 -Continue with diet changes and weight loss, may be a good candidate for metformin due to weight loss effect but will not start this now. #Tobacco use -Counseled on cessation, continue nicotine patch Result Diagram: 08/12/1849 08/12/18548 Exam/Review of Systems Exam Vitals Vital Signs Date Temp Pulse Resp B/P (MAP) Pulse Ox O2 O2 Flow FiO2 Time Delivery Rate 08/13/18 88 09:08 08/13/18 97 4.0 08:13 08/13/18 20 Nasal 08:12 Cannula 08/13/18 97.3 133/84 07:19 (100) 08/13/18 40 04:00 Intake and Output 08/12/18 08/12/18 08/13/18 1515:00 23:00 07:00 IntakeIntake Total 800 ml 400 ml BalanceBalance 800 ml 400 ml Medications Medication Current Medications IV Flush (NS 3 ml) 3 ml PER PROTOCOL IV ; Start 08/08/18 at 19:00 Ondansetron HCl (Zofran Inj) 4 mg Q6H PRN IV NAUSEA/VOMITING; Start 08/08/18 at 19:00 Acetaminophen (Tylenol Tab) 650 mg Q6H PRN PO .PAIN 1-3 OR TEMP Last administered on 08/09/18at 18:01; Admin Dose 650 MG; Start 08/08/18 at 19:00 Pantoprazole (Protonix Iv) 40 mg DAILY@06 IV Last administered on 08/13/18at 05:00; Admin Dose 40 MG; Start 08/09/18 at 06:00 Heparin Sodium (Porcine) (Heparin (5000 Units/1ml)) 5,000 unit Q8 SC Last administered on 08/13/18at 05:07; Admin Dose 5,000 UNIT; Start 08/08/18 at 22:00 Albuterol/ Ipratropium (Duoneb) 3 ml Q4H RESP THERAPY PRN HHN wheezing; Start 08/08/18 at 19:00 Acetylcysteine (Mucomyst) 2 ml Q6H RESP THERAPY NEB Last administered on 08/13/18 07:54; Admin Dose 2 ML; Start 08/08/18 at 20:00 Nicotine (Nicoderm 21 Mg/ 24hr) 1 patch DAILY TRANSDERM Last administered on 08:36; Admin Dose 1 PATCH; Start 08/08/18 at 19:30 Lorazepam (Ativan) 2 mg Q4H PRN IV anxiety/agitation; Start 08/08/18 at 19:30 Methylprednisolone Sodium Succinate (Solu-Medrol) 40 mg Q8 IV Last administered on 08/13/18 05:00; Admin Dose 40 MG; Start 08/09/18 at 14:00 Levalbuterol (Xopenex Neb) 0.63 mg Q6H RESP THERAPY HHN Last administered on 08/13/18 07:54; Admin Dose 0.63 MG; Start 08/10/18 at 02:00 Ipratropium [place] (Atrovent 0.02% (Neb)) 0.5 mg Q6H RESP THERAPY HHN Last administered on 08/13/18 07:54; Admin Dose 0.5 MG; Start 08/10/18 at 02:00 Furosemide (Lasix) 20 mg BID DIURETICS IV Last administered on 08/13/18 05:01; Admin Dose 20 MG; Start 08/11/18 at 10:30 EMILI OLVERA Aug 13, 2018 11:09
--- NOTE | 2018-08-13 11:27 | CONS ---
Assessment/Plan Assessment/Plan Assessment/Plan (Daily) Assessment and recommendations; next 1. Patient admitted with severe exacerbation with acutely decompensated chronic type II respiratory failure with severe hypercapnia with significant interval improvement. 2. Underlying obesity/hypoventilation syndrome with likely obstructive sleep apnea as well. Continue current supportive care. Patient will need to have noninvasive positive pressure ventilator with oxygen for home use. Consultation Date/Type/Reason Admit Date/Time Aug 08, 2018 at 18:27 Initial Consult Date 08/09/18 Type of Consult Pulmonary Patient is a pleasant 38-year-old male who came into the hospital with a few days history of right lower extremity swelling and redness with associated shortness of breath and cough and chest congestion which has been going on for months to years. Patient denies any chest pain, any fever, any sputum production. Past medical history; 1. Possibly underlying sleep apnea. Medications; reviewed. Allergies; none. Social history; smokes about a pack a day and also snorts cocaine off and on. Family history; , no show any illnesses in the family. 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 Complains of scant cough and chest co ngestion. Complains of right lower extremity pain and swelling for the last few days. Denies any melena or hematochezia. Complains of snoring and daytime sleepiness. Complains of weight gain. Denies any urinary symptoms. General exam; young male, morbidly obese, awake and alert. Currently no distress. Date/Time of Note DATE: 08/13/18 TIME: 11:24 24 HR Interval Summary Free Text/Dictation Patient's condition is stable. Denies any shortness of breath at rest. Any wheezing or coughing. General exam; young male, morbidly obese, sitting in a chair by bedside. Awake and alert. Currently in no distress. Exam/Review of Systems Exam Vitals Vital Signs Date Temp Pulse Resp B/P (MAP) Pulse Ox O2 O2 Flow FiO2 Time Delivery Rate 08/13/18 88 09:08 08/13/18 97 4.0 08:13 08/13/18 20 Nasal 08:12 Cannula 08/13/18 97.3 133/84 07:19 (100) 08/13/18 40 04:00 Intake and Output 08/12/18 08/12/18 08/13/18 1515:00 23:00 07:00 IntakeIntake Total 800 ml 400 ml BalanceBalance 800 ml 400 ml Exam H EENT exam; supple neck, JVD difficult to see because of short neck. Patient has fair dentition. No neck masses. Chest exam; diminished but clear breath sounds. S1-S2 audible, no murmurs. Regular rhythm. Abdomen exam; protuberant. Nontender. Bowel sounds audible. Extremity exam; Trace edema. PAN PULLER exam; no focal deficit. Results Result Diagram: 08/12/1854808/12/18548 Medications Medication Current Medications IV Flush (NS 3 ml) 3 ml PER PROTOCOL IV ; Start 08/08/18 at 19:00 Ondansetron HCl (Zofran Inj) 4 mg Q6H PRN IV NAUSEA/VOMITING; Start 08/08/18 at 19:00 Acetaminophen (Tylenol Tab) 650 mg Q6H PRN PO .PAIN 1-3 OR TEMP Last administered on 08/09/18 18:01; Admin Dose 650 MG; Start 08/08/18 at 19:00 Pantoprazole (Protonix Iv) 40 mg DAILY@06 IV Last administered on 08/13/18 05:00; Admin Dose 40 MG; Start 08/09/18 at 06:00 Heparin Sodium (Porcine) (Heparin (5000 Units/1ml)) 5,000 unit Q8 SC Last administered on 08/13/18 05:07; Admin Dose 5,000 UNIT; Start 08/08/18 at 22:00 Albuterol/ Ipratropium (Duoneb) 3 ml Q4H RESP THERAPY PRN HHN wheezing; Start 08/08/18 at 19:00 Acetylcysteine (Mucomyst) 2 ml Q6H RESP THERAPY NEB Last administered on 08/13/18 07:54; Admin Dose 2 ML; Start 08/08/18 at 20:00 Nicotine (Nicoderm 21 Mg/ 24hr) 1 patch DAILY TRANSDERM Last administered on 08/13/18 08:36; Admin Dose 1 PATCH; Start 08/08/18 at 19:30 Levalbuterol (Xopenex Neb) 0.63 mg Q6H RESP THERAPY HHN Last administered on 08/13/18 07:54; Admin Dose 0.63 MG; Start 08/10/18 at 02:00 Ipratropium [place] (Atrovent 0.02% (Neb)) 0.5 mg Q6H RESP THERAPY HHN Last administered on 08/13/18at 07:54; Admin Dose 0.5 MG; Start 08/10/18 at 02:00 Furosemide (Lasix) 20 mg BID DIURETICS IV Last administered on 08/13/18at 05:01; Admin Dose 20 MG; Start 08/11/18 at 10:30; Stop 08/13/18 at 22:50 Prednisone (Prednisone) 60 mg DAILY PO ; Start 08/14/18 at 09:00 Methylprednisolone Sodium Succinate (Solu-Medrol) 40 mg ONCE ONCE IV ; Start 08/13/18 at 21:30; Stop 08/13/18 at 21:31 Furosemide (Lasix) 20 mg DAILY PO ; Start 08/14/18 at 09:00 MADISON HATFIELD Aug 13, 2018 11:27
[2018-08-13] MEDS ORDERED: METHYLPREDNISOLONE 40 MG INJ IV ONE (21:30)
[2018-08-14] VITALS (14 sets, daily range): BP systolic 110–147; BP diastolic 58–86; PULSE 9–106; RESP 19–20
[2018-08-14] MEDS: IPRATROPIUM (NEB) 0.5 MG/2.5 ML AMP HHN SCH ×4 (01:33→20:35)
[2018-08-14] MEDS: LEVALBUTEROL (NEB) 0.63 MG/3 ML AMP HHN SCH ×4 (01:33→20:35)
[2018-08-14] MEDS: ACETYLCYSTEINE 20% 4 ML VIAL NEB SCH ×4 (01:33→20:35)
[2018-08-14] MEDS: PANTOPRAZOLE 40 MG INJ IV SCH (05:28)
[2018-08-14] MEDS: HEPARIN 5,000 UNIT/1 ML VIAL SC SCH ×3 (05:35→21:39)
[2018-08-14] MEDS: predniSONE 20 MG TAB PO SCH (08:45)
[2018-08-14] MEDS: NICOTINE (21 MG/24 HR) PATCH TRANSDERM SCH (08:45)
[2018-08-14] MEDS: FUROSEMIDE 20 MG TAB PO SCH (08:45)
--- NOTE | 2018-08-14 10:17 | PN ---
Date/Time of Note Date/Time of Note DATE: 08/14/18 TIME: 10:15 Assessment/Plan VTE Prophylaxis Risk score (from Ns)>0 risk: 4 SCD applied (from Ns): No SCD contraindicated: other Pharmacological prophylaxis: heparin Lines/Catheters [facility] Urinary Cath still in place: No Assessment/Plan Hospital Course S: Patient still waiting for insurance approval for BiPAP and now home O2 which is been ordered since yesterday. Nurse instructed (again) to keep patient's O2 saturations between 88-92%. Less shortness of breath symptoms. O: VS -see below PE: Gen: Super morbidly obese man sitting up in bed, presently on nasal cannula oxy gen Eyes: PERRL, no icterus. HEENT: Moist mucous membranes, clear oropharynx Neck: Hyperpigmented with numerous skin tags. Card: Regular rate and rhythm, distant heart sounds Pulm: Some distant breath sounds bilaterally Abd: Obese, otherwise soft, nontender. Ext: RLE edema and erythema almost completely resolved, full range of motion, not very tender. LLE obese, no redness. Skin: Several superficial ulcers on inferior pannus folds. 2D ECHO: Conclusions: Lower limits of normal systolic function. Normal left ventricular wall thickness. Mild concentric left ventricular hypertrophy. Ejection fraction is visually estimated at 50-55 %. Tissue Doppler/Mitral Doppler indices are within normal limits. Normal appearance of the mitral valve. Trace mitral regurgitation. Normal appearance of the tricuspid valve. Unable to obtain RVSP due to minimal presence of tricuspid regurgitation. Assessment/Plan: 38 yo super morbidly obese man with acute on chronic respiratory failure and R leg pain. #Acute on chronic hypercapnic/hypoxemic resp failure--2/2 OHS/DAMON, patient also with heavy smoking history, possibly tipped over by mild decompensated RHF- Per family, has chronic respiratory failure and what sounds like obstructive symptoms for months or years. -Maintain O2 sats between 88-92% -Continue N-acetylcystine as mucolytic, p.o. Lasix, continue duo nebs as needed, p.o. steroids - Case management consulted for home BiPAP and home O2 set up- this a pparently has been approved once patient's insurance goes through, per discussion with case management team. We will follow-up on this. -Follow-up recommendations from Pulmonary team as well #Bacteremia- Blood cultures growing coag neg staph, probably contaminant- No evidence of sepsis since admission. -Have stopped antibiotics and follow-up results of repeat cultures. #R leg pain-resolving now, previously was acute onset over 1-2 days- Looks like venous stasis disease, possibly with superficial infection- Duplex negative for DVT- CT not definite for deep necrotizing infection Now completely resolved. -Monitor #pre-diabetes- New diagnosis with HgbA1C 6.0 -Continue with diet changes and weight loss, may be a good candidate for metformin due to weight loss effect but will not start this now. #Tobacco use -Counseled on cessation, continue nicotine patch Dispo: Home once case management can confirm he has been approved for home BiPAP and home O2, will need nicotine patch as well, steroid taper Result Diagram: 08/14/18 0611 08/14/18 0611 Results 24hrs Laboratory Tests Test 08/14/18 06:11 White Blood Count 11.5 #H Red Blood Count 5.60 Hemoglobin 14.9 Hematocrit 48.3 Mean Corpuscular Volume 86.3 Mean Corpuscular Hemoglobin 26.6 L Mean Corpuscular Hemoglobin Concent 30.8 L Red Cell Distribution Width 16.4 H Platelet Count 275 # Mean Platelet Volume 10.7 H Immature Granulocytes % 5.100 H Neutrophils % Segmented Neutrophils % (Manual) 70 Band Neutrophils % (Manual) 3 Lymphocytes % Lymphocytes % (Manual) 15 Reactive Lymphocytes % (Manual) 1 H Monocytes % Monocytes % (Manual) 4 Eosinophils % Basophils % Metamyelocytes % (manual) 2 H Myelocytes % (Manual) 5 H Nucleated Red Blood Cells % 1 H Immature Granulocytes # 0.590 H Neutrophils # Neutrophils # (Manual) 8.1 H Band Neutrophils # 0.3 Lymphocytes (Manual) 1.7 Lymphocytes # Reactive Lymphocytes # 0.1 H Monocytes # Monocytes # (Manual) 0.4 Eosinophils # Basophils # Metamyelocytes # 0.2 H Myelocytes # 0.5 H Nucleated Red Blood Cells # Platelet Estimate NORMAL Giant Platelets 1 H Poikilocytosis 1+ Sodium Level 137 Potassium Level 4.5 Chloride Level 98 Carbon Dioxide Level 32 H Anion Gap 7 Blood Urea Nitrogen 34 H Creatinine 0.87 Est Glomerular Filtrat Rate mL/min > 60 Glucose Level 105 Calcium Level 9.1 Phosphorus Level 4.9 Magnesium Level 2.3 Exam/Review of Systems Exam Vitals Vital Signs Date Temp Pulse Resp B/P (MAP) Pulse Ox O2 O2 Flow FiO2 Time Delivery Rate 08/14/18 2.0 09:50 08/14/18 Nasal 08:57 Cannula 08/14/18 98.0 91 20 147/78 97 07:13 (101) 08/14/18 40 05:41 Intake and Output 08/13/18 08/13/18 08/14/18 1414:59 22:59 06:59 IntakeIntake Total 360 ml 700 ml 600 ml BalanceBalance 360 ml 700 ml 600 ml Results Results 24hrs Laboratory Tests Test 08/14/18 06:11 White Blood Count 11.5 #H Red Blood Count 5.60 Hemoglobin 14.9 Hematocrit 48.3 Mean Corpuscular Volume 86.3 Mean Corpuscular Hemoglobin 26.6 L Mean Corpuscular Hemoglobin Concent 30.8 L Red Cell Distribution Width 16.4 H Platelet Count 275 # Mean Platelet Volume 10.7 H Immature Granulocytes % 5.100 H Neutrophils % Segmented Neutrophils % (Manual) 70 Band Neutrophils % (Manual) 3 Lymphocytes % Lymphocytes % (Manual) 15 Reactive Lymphocytes % (Manual) 1 H Monocytes % Monocytes % (Manual) 4 Eosinophils % Basophils % Metamyelocytes % (manual) 2 H Myelocytes % (Manual) 5 H Nucleated Red Blood Cells % 1 H Immature Granulocytes # 0.590 H Neutrophils # Neutrophils # (Manual) 8.1 H Band Neutrophils # 0.3 Lymphocytes (Manual) 1.7 Lymphocytes # Reactive Lymphocytes # 0.1 H Monocytes # Monocytes # (Manual) 0.4 Eosinophils # Basophils # Metamyelocytes # 0.2 H Myelocytes # 0.5 H Nucleated Red Blood Cells # Platelet Estimate NORMAL Giant Platelets 1 H Poikilocytosis 1+ Sodium Level 137 Potassium Level 4.5 Chloride Level 98 Carbon Dioxide Level 32 H Anion Gap 7 Blood Urea Nitrogen 34 H Creatinine 0.87 Est Glomerular Filtrat Rate mL/min > 60 Glucose Level 105 Calcium Level 9.1 Phosphorus Level 4.9 Magnesium Level 2.3 Medications Medication Current Medications IV Flush (NS 3 ml) 3 ml PER PROTOCOL IV ; Start 08/08/18 at 19:00 Ondansetron HCl (Zofran Inj) 4 mg Q6H PRN IV NAUSEA/VOMITING; Start 08/08/18 at 19:00 Acetaminophen (Tylenol Tab) 650 mg Q6H PRN PO .PAIN 1-3 OR TEMP Last administered on 08/09/18 18:01; Admin Dose 650 MG; Start 08/08/18 at 19:00 Pantoprazole (Protonix Iv) 40 mg DAILY@06 IV Last administered on 08/14/18 05:2 8; Admin Dose 40 MG; Start 08/09/18 at 06:00 Heparin Sodium (Porcine) (Heparin (5000 Units/1ml)) 5,000 unit Q8 SC Last administered on 08/14/18 05:35; Admin Dose 5,000 UNIT; Start 08/08/18 at 22:00 Albuterol/ Ipratropium (Duoneb) 3 ml Q4H RESP THERAPY PRN HHN wheezing; Start 08/08/18 at 19:00 Acetylcysteine (Mucomyst) 2 ml Q6H RESP THERAPY NEB Last administered on 08/14/18 01:33; Admin Dose 2 ML; Start 08/08/18 at 20:00 Nicotine (Nicoderm 21 Mg/ 24hr) 1 patch DAILY TRANSDERM Last administered on 08/14/18 08:45; Admin Dose 1 PATCH; Start 08/08/18 at 19:30 Levalbuterol (Xopenex Neb) 0.63 mg Q6H RESP THERAPY HHN Last administered on 08/14/18 01:33; Admin Dose 0.63 MG; Start 08/10/18 at 02:00 Ipratropium [place] (Atrovent 0.02% (Neb)) 0.5 mg Q6H RESP THERAPY HHN Last administered on 08/14/18 01:33; Admin Dose 0.5 MG; Start 08/10/18 at 02:00 Prednisone (Prednisone) 60 mg DAILY PO Last administered on 08/14/18 08:45; Admin Dose 60 MG; Start 08/14/18 at 09:00 Furosemide (Lasix) 20 mg DAILY PO Last administered on 08/14/18 08:45; Admin Dose 20 MG; Start 08/14/18 at 09:00 EMILI OLVERA Aug 14, 2018 10:17
--- NOTE | 2018-08-14 10:49 | CONS ---
Assessment/Plan Assessment/Plan Assessment/Plan (Daily) Assessment and recommendations; 1 patient admitted with acute exacerbation of COPD with acute bronchitis as well as severe hypercapnic respiratory failure due to underlying obesity/hypoventilation syndrome with high possibility of underlying sleep apnea, clinically much improved on current treatment regimen. 2. Mild CHF. Continue current supportive care. Wean down prednisone in 24 hours. Patient awaiting home noninvasive positive pressure ventilator as well as oxygen. Consultation Date/Type/Reason Admit Date/Time Aug 08, 2018 at 18:27 Initial Consult Date 08/09/18 Type of Consult Pulmonary Patient is a pleasant 38-year-old male who came into the hospital with a few days history of right lower extremity swelling and redness with associated shortness of breath and cough and chest congestion which has been going on for months to years. Patient denies any chest pain, any fever, any sputum production. Past medical history; 1. Possibly underlying sleep apnea. Medications; reviewed. Allergies; none. Social history; smokes about a pack a day and also snorts cocaine off and on. Family history; , no show any illnesses in the family. 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 Complains of scant cough and chest congestion. Complains of right lower extremity pain and swelling for the last few days. Denies any melena or hematochezia. Complains of snoring and daytime sleepiness. Complains of weight gain. Denies any urinary symptoms. General exam; young male, morbidly obese, awake and alert. Currently no distress. Date/Time of Note DATE: 08/14/18 TIME: 10:47 24 HR Interval Summary Free Text/Dictation Patient's condition is stable. Complains of dyspnea on minimal exertion. Denies any coughing, wheezing, chest pain. General exam; young male, morbidly obese, awake and alert. Currently in no distress. Exam/Review of Systems Exam Vitals Vital Signs Date Temp Pulse Resp B/P (MAP) Pulse Ox O2 O2 Flow FiO2 Time Delivery Rate 08/14/18 2.0 09:50 08/14/18 Nasal 08:57 Cannula 08/14/18 78 08:00 08/14/18 98.0 20 147/78 97 07:13 (101) 08/14/18 40 05:41 Intake and Output 08/13/18 08/13/18 08/14/18 1515:00 23:00 07:00 IntakeIntake Total 360 ml 700 ml 600 ml BalanceBalance 360 ml 700 ml 600 ml Exam H EENT exam; supple neck, JVD difficult to see because of short neck. Patient has fair dentition. No neck masses. Chest exam; diminished but clear breath sounds. S1-S2 audible, no murmurs. Regular rhythm. Abdomen exam; protuberant. Organomegaly difficult to assess. Nontender. Bowel sounds audible. Extremity exam; chronic lower extremity skin changes. 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 Results Result Diagram: 08/14/18 0611 08/14/18 0611 Results 24hrs Laboratory Tests Test 08/14/18 06:11 White Blood Count 11.5 #H Red Blood Count 5.60 Hemoglobin 14.9 Hematocrit 48.3 Mean Corpuscular Volume 86.3 Mean Corpuscular Hemoglobin 26.6 L Mean Corpuscular Hemoglobin Concent 30.8 L Red Cell Distribution Width 16.4 H Platelet Count 275 # Mean Platelet Volume 10.7 H Immature Granulocytes % 5.100 H Neutrophils % Segmented Neutrophils % (Manual) 70 Band Neutrophils % (Manual) 3 Lymphocytes % Lymphocytes % (Manual) 15 Reactive Lymphocytes % (Manual) 1 H Monocytes % Monocytes % (Manual) 4 Eosinophils % Basophils % Metamyelocytes % (manual) 2 H Myelocytes % (Manual) 5 H Nucleated Red Blood Cells % 1 H Immature Granulocytes # 0.590 H Neutrophils # Neutrophils # (Manual) 8.1 H Band Neutrophils # 0.3 Lymphocytes (Manual) 1.7 Lymphocytes # Reactive Lymphocytes # 0.1 H Monocytes # Monocytes # (Manual) 0.4 Eosinophils # Basophils # Metamyelocytes # 0.2 H Myelocytes # 0.5 H Nucleated Red Blood Cells # Platelet Estimate NORMAL Giant Platelets 1 H Poikilocytosis 1+ Sodium Level 137 Potassium Level 4.5 Chloride Level 98 Carbon Dioxide Level 32 H Anion Gap 7 Blood Urea Nitrogen 34 H Creatinine 0.87 Est Glomerular Filtrat Rate mL/min > 60 Glucose Level 105 Calcium Level 9.1 Phosphorus Level 4.9 Magnesium Level 2.3 Medications Medication Current Medications IV Flush (NS 3 ml) 3 ml PER PROTOCOL IV ; Start 08/08/18 at 19:00 Ondansetron HCl (Zofran Inj) 4 mg Q6H PRN IV NAUSEA/VOMITING; Start 08/08/18 at 19:00 Acetaminophen (Tylenol Tab) 650 mg Q6H PRN PO .PAIN 1-3 OR TEMP Last administered on 08/09/18 18:01; Admin Dose 650 MG; Start 08/08/18 at 19:00 Pantoprazole (Protonix Iv) 40 mg DAILY@06 IV Last administered on 08/14/18 05:28; Admin Dose 40 MG; Start 08/09/18 at 06:00 Heparin Sodium (Porcine) (Heparin (5000 Units/1ml)) 5,000 unit Q8 SC Last administered on 08/14/18 05:35; Admin Dose 5,000 UNIT; Start 08/08/18 at 22:00 Albuterol/ Ipratropium (Duoneb) 3 ml Q4H RESP THERAPY PRN HHN wheezing; Start 08/08/18 at 19:00 Acetylcysteine (Mucomyst) 2 ml Q6H RESP THERAPY NEB Last administered on 08/14/18 01:33; Admin Dose 2 ML; Start 08/08/18 at 20:00 Nicotine (Nicoderm 21 Mg/ 24hr) 1 patch DAILY TRANSDERM Last administered on 08:45; Admin Dose 1 PATCH; Start 08/08/18 at 19:30 Levalbuterol (Xopenex Neb) 0.63 mg Q6H RESP THERAPY HHN Last administered on 08/14/18 01:33; Admin Dose 0.63 MG; Start 08/10/18 at 02:00 Ipratropium [place] (Atrovent 0.02% (Neb)) 0.5 mg Q6H RESP THERAPY HHN Last administered on 08/14/18 01:33; Admin Dose 0.5 MG; Start 08/10/18 at 02:00 Prednisone (Prednisone) 60 mg DAILY PO Last administered on 08/14/18 08:45; Admin Dose 60 MG; Start 08/14/18 at 09:00 Furosemide (Lasix) 20 mg DAILY PO Last administered on 08/14/18 08:45; Admin Dose 20 MG; Start 08/14/18 at 09:00 MADISON HATFIELD Aug 14, 2018 10:49
[2018-08-15] VITALS (12 sets, daily range): BP systolic 118–142; BP diastolic 65–86; PULSE 75–107; RESP 20
[2018-08-15] MEDS: LEVALBUTEROL (NEB) 0.63 MG/3 ML AMP HHN SCH ×4 (02:19→20:39)
[2018-08-15] MEDS: IPRATROPIUM (NEB) 0.5 MG/2.5 ML AMP HHN SCH ×4 (02:19→20:39)
[2018-08-15] MEDS: ACETYLCYSTEINE 20% 4 ML VIAL NEB SCH ×4 (02:23→20:39)
[2018-08-15] MEDS: PANTOPRAZOLE (EC) 40 MG TAB PO SCH (05:12)
[2018-08-15] MEDS: HEPARIN 5,000 UNIT/1 ML VIAL SC SCH ×3 (05:17→21:33)
[2018-08-15] MEDS: NICOTINE (21 MG/24 HR) PATCH TRANSDERM SCH (09:33)
[2018-08-15] MEDS: predniSONE 20 MG TAB PO SCH (09:33)
[2018-08-15] MEDS: FUROSEMIDE 20 MG TAB PO SCH (09:33)
--- NOTE | 2018-08-15 10:34 | CONS ---
Assessment/Plan Assessment/Plan Assessment/Plan (Daily) Assessment and recommendations; 1. Patient admitted for severe COPD exacerbation acute bronchitis with severe hypercapnic respiratory failure with marked overall interval improvement. Patient does still exhibiting hypercapnia. Patient likely is due to underlying obesity/hypoventilation syndrome. 2. Mild CHF. 3. Chronic hypoxemia and type II respiratory failure. Continue current supportive care. Discontinue prednisone. Patient awaiting home BiPAP and oxygen approval by [facility]. Patient was strongly urged to stay in the hospital until the BiPAP is arranged as well as oxygen for home use. Consultation Date/Type/Reason Admit Date/Time Aug 08, 2018 at 18:27 Initial Consult Date 08/09/18 Type of Consult Pulmonary Patient is a pleasant 38-year-old male who came into the hospital with a few days history of right lower extremity swelling and redness with associated shortness of breath and cough and chest congestion which has been going on for months to years. Patient denies any chest pain, any fever, any sputum production. Past medical history; 1. Possibly underlying sleep apnea. Medications; reviewed. Allergies; none. Social history; smokes about a pack a day and also snorts cocaine off and on. Family history; , no show any illnesses in the family. 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 Complains of scant cough and chest congestion. Complains of right lower extremity pain and swelling for the last few days. Denies any melena or hematochezia. Complains of snoring and daytime sleepiness. Complains of weight gain. Denies any urinary symptoms. General exam; young male, morbidly obese, awake and alert. Currently no distress. Date/Time of Note DATE: 08/15/18 TIME: 10:30 24 HR Interval Summary Free Text/Dictation Patient's condition is stable. Denies any shortness of breath at rest or at exertion. Denies any coughing, wheezing, sputum production. General exam; young male, morbidly obese, awake and alert. Currently in no distress. Exam/Review of Systems Exam Vitals Vital Signs Date Temp Pulse Resp B/P (MAP) Pulse Ox O2 O2 Flow FiO2 Time Delivery Rate 08/15/18 Nasal 0.5 09:40 Cannula 08/15/18 96 08:18 08/15/18 20 91 07:35 08/15/18 97.8 122/76 07:00 (91) 08/15/18 25 01:20 Intake and Output 08/14/18 08/14/18 08/15/18 1515:00 23:00 07:00 IntakeIntake Total 500 ml 700 ml BalanceBalance 500 ml 700 ml Exam H EENT exam; supple neck, no lymphadenopathy. No JVD. Patient has good dentition. No neck masses. Chest exam; diminished breath sounds bilaterally. S1-S2 audible, no murmurs. Regular rhythm. Abdomen exam; soft, no organomegaly. Bowel sounds audible. Extremity exam; no peripheral edema clubbing. 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 Results Result Diagram: 08/14/1861008/14/18610 Medications Medication Current Medications IV Flush (NS 3 ml) 3 ml PER PROTOCOL IV ; Start 08/08/18 at 19:00 Ondansetron HCl (Zofran Inj) 4 mg Q6H PRN IV NAUSEA/VOMITING; Start 08/08/18 at 19:00 Acetaminophen (Tylenol Tab) 650 mg Q6H PRN PO .PAIN 1-3 OR TEMP Last a dministered on 08/09/18 18:01; Admin Dose 650 MG; Start 08/08/18 at 19:00 Heparin Sodium (Porcine) (Heparin (5000 Units/1ml)) 5,000 unit Q8 SC Last administered on 08/15/18 05:17; Admin Dose 5,000 UNIT; Start 08/08/18 at 22:00 Albuterol/ Ipratropium (Duoneb) 3 ml Q4H RESP THERAPY PRN HHN wheezing; Start 08/08/18 at 19:00 Acetylcysteine (Mucomyst) 2 ml Q6H RESP THERAPY NEB Last administered on 07:37; Admin Dose 2 ML; Start 08/08/18 at 20:00 Nicotine (Nicoderm 21 Mg/ 24hr) 1 patch DAILY TRANSDERM Last administered on 08/15/18 09:33; Admin Dose 1 PATCH; Start 08/08/18 at 19:30 Levalbuterol (Xopenex Neb) 0.63 mg Q6H RESP THERAPY HHN Last administered on 08/15/18 07:37; Admin Dose 0.63 MG; Start 08/10/18 at 02:00 Ipratropium [place] (Atrovent 0.02% (Neb)) 0.5 mg Q6H RESP THERAPY HHN Last administered on 08/15/18at 07:37; Admin Dose 0.5 MG; Start 08/10/18 at 02:00 Furosemide (Lasix) 20 mg DAILY PO Last administered on 08/15/18 09:33; Admin Dose 20 MG; Start 08/14/18 at 09:00 Pantoprazole (Protonix Tab) 40 mg DAILY@06 PO Last administered on 08/15/18 05:12; Admin Dose 40 MG; Start 08/15/18 at 06:00 MADISON HATFIELD Aug 15, 2018 10:34
--- NOTE | 2018-08-15 10:52 | PN ---
Date/Time of Note Date/Time of Note DATE: 08/15/18 TIME: 10:50 Assessment/Plan VTE Prophylaxis Risk score (from Ns)>0 risk: 4 SCD applied (from Ns): No SCD contraindicated: other Pharmacological prophylaxis: heparin Lines/Catheters IV [facility] [place] Urinary Cath still in place: No Assessment/Plan Hospital Course S: Patient still waiting for insurance approval for BiPAP and home O2 which is been ordered for the last 2 days per presently O2 sats are between 88-92%, on 0.5 L oxygen nasal cannula supplementation. O: VS -see below PE: Gen: Super morbidly obese man sitting up in bed, presently on nasal cannula oxygen Eyes: PERRL, no icterus. HEENT: Moist mucous membranes, clear oropharynx Neck: Hyperpigmented with numerous skin tags. Card: Regular rate and rhythm, distant heart sounds Pulm: Some distant breath sounds bilaterally Abd: Obese, otherwise soft, nontender. Ext: RLE edema and erythema almost completely resolved, full range of motion, not very tender. LLE obese, no redness. Skin: Several superficial ulcers on inferior pannus folds. 2D ECHO: Conclusions: Lower limits of normal systolic function. Normal left ventricular wall thickness. Mild concentric left ventricular hypertrophy. Ejection fraction is visually estimated at 50-55 %. Tissue Doppler/Mitral Doppler indices are within normal limits. Normal appearance of the mitral valve. Trace mitral regurgitation. Normal appearance of the tricuspid valve. Unable to obtain RVSP due to minimal presence of tricuspid regurgitation. Assessment/Plan: 38 yo super morbidly obese man with acute on chronic respiratory failure and R leg pain. #Acute on chronic hypercapnic/hypoxemic resp failure--2/2 OHS/DAMON, patient also with heavy smoking history, possibly tipped over by mild decompensated RHF- Per family, has chronic respiratory failure and what sounds like obstructive symptoms for months or years. -Maintain O2 sats between 88-92% -Continue N-acetylcystine as mucolytic, p.o. Lasix, continue duo nebs as needed - Case management consulted for home BiPAP and home O2 set up- this apparently has been approved once patient's insurance goes through, per discussion with case management team. We will follow-up on this. -Follow-up recommendations from Pulmonary team as well #Bacteremia- Blood cultures growing coag neg staph, probably contaminant- No evidence of sepsis since admission. -Have stopped antibiotics and follow-up results of repeat cultures. #R leg pain-resolving now, previously was acute onset over 1-2 days- Looks like venous stasis disease, possibly with superficial infection- Duplex negative for DVT- CT not definite for deep necrotizing infection Now completely resolved. -Monitor #pre-diabetes- New diagnosis with HgbA1C 6.0 -Continue with diet changes and weight loss, may be a good candidate for metformin due to weight loss effect but will not start this now. #Tobacco use -Counseled on cessation, continue nicotine patch Dispo: Home once case management can confirm he has been approved for home BiPAP and home O2, will need nicotine patch as well. Result Diagram: 08/14/1861008/14/18610 Exam/Review of Systems Exam Vitals Vital Signs Date Temp Pulse Resp B/P (MAP) Pulse Ox O2 O2 Flow FiO2 Time Delivery Rate 08/15/18 Nasal 0.5 09:40 Cannula 08/15/18 96 08:18 08/15/18 20 91 07:35 08/15/18 97.8 122/76 07:00 (91) 08/15/18 25 01:20 Intake and Output 08/14/18 08/14/18 08/15/18 1515:00 23:00 07:00 IntakeIntake Total 500 ml 700 ml BalanceBalance 500 ml 700 ml Medications Medication Current Medications IV Flush (NS 3 ml) 3 ml PER PROTOCOL IV ; Start 08/08/18 at 19:00 Ondansetron HCl (Zofran Inj) 4 mg Q6H PRN IV NAUSEA/VOMITING; Start 08/08/18 at 19:00 Acetaminophen (Tylenol Tab) 650 mg Q6H PRN PO .PAIN 1-3 OR TEMP Last administered on 08/09/18at 18:01; Admin Dose 650 MG; Start 08/08/18 at 19:00 Heparin Sodium (Porcine) (Heparin (5000 Units/1ml)) 5,000 unit Q8 SC Last administered on 08/15/18at 05:17; Admin Dose 5,000 UNIT; Start 08/08/18 at 22:00 Albuterol/ Ipratropium (Duoneb) 3 ml Q4H RESP THERAPY PRN HHN wheezing; Start 08/08/18 at 19:00 Acetylcysteine (Mucomyst) 2 ml Q6H RESP THERAPY NEB Last administered on 08/15/18 07:37; Admin Dose 2 ML; Start 08/08/18 at 20:00 Nicotine (Nicoderm 21 Mg/ 24hr) 1 patch DAILY TRANSDERM Last administered on 08/15/18 09:33; Admin Dose 1 PATCH; Start 08/08/18 at 19:30 Levalbuterol (Xopenex Neb) 0.63 mg Q6H RESP THERAPY HHN Last administered on 08/15/18 07:37; Admin Dose 0.63 MG; Start 08/10/18 at 02:00 Ipratropium [place] (Atrovent 0.02% (Neb)) 0.5 mg Q6H RESP THERAPY HHN Last administered on 08/15/18 07:37; Admin Dose 0.5 MG; Start 08/10/18 at 02:00 Furosemide (Lasix) 20 mg DAILY PO Last administered on 08/15/18 09:33; Admin Dose 20 MG; Start 08/14/18 at 09:00 Pantoprazole (Protonix Tab) 40 mg DAILY@06 PO Last administered on 08/15/18 05:12; Admin Dose 40 MG; Start 08/15/18 at 06:00 EMILI OLVERA Aug 15, 2018 10:52
[2018-08-16] VITALS (15 sets, daily range): BP systolic 113–136; BP diastolic 58–83; PULSE 72–109; RESP 17–20
[2018-08-16] MEDS: IPRATROPIUM (NEB) 0.5 MG/2.5 ML AMP HHN SCH ×4 (01:52→20:00)
[2018-08-16] MEDS: LEVALBUTEROL (NEB) 0.63 MG/3 ML AMP HHN SCH ×4 (01:52→20:00)
[2018-08-16] MEDS: ACETYLCYSTEINE 20% 4 ML VIAL NEB SCH ×4 (01:52→20:00)
[2018-08-16] MEDS: PANTOPRAZOLE (EC) 40 MG TAB PO SCH (05:26)
[2018-08-16] MEDS: HEPARIN 5,000 UNIT/1 ML VIAL SC SCH ×3 (05:55→21:25)
[2018-08-16] MEDS: NICOTINE (21 MG/24 HR) PATCH TRANSDERM SCH (10:11)
[2018-08-16] MEDS: FUROSEMIDE 20 MG TAB PO SCH (10:12)
--- NOTE | 2018-08-16 11:54 | PDOCDIS ---
Discharge Instructions CONDITION [id number] Patient Condition: [id number] Stable ACTIVITY: [id number] Activity Restrictions: [id number] Slowly Increase Activity Rest between Activity Avoid heavy lifting FOLLOW UP/APPOINTMENTS Follow-up Plan Please take your medications as prescribed, see your doctor in the clinic in the next 1 week. EMILI OLVERA Aug 16, 2018 11:54
[2018-08-16] MEDS ORDERED: LAS20 PO (11:56)
[2018-08-16] MEDS ORDERED: LEVA15HF6 INH (11:56)
[2018-08-16] MEDS ORDERED: NICO-546 TRANSDERM (11:56)
--- NOTE | 2018-08-16 12:02 | DS ---
Date/Time of Note Date/Time of Note DATE: 08/16/18 TIME: 11:57 Discharge Summary Admission/Discharge Info Admit Date/Time Aug 08, 2018 at 18:27 Discharge Date/Time Discharge Diagnosis #Acute on chronic hypercapnic/hypoxemic resp failure--2/2 OHS/DAMON, patient also with heavy smoking history, possibly tipped over by mild decompensated RHF- improving now, ordered for home BiPAP and home O2 set up -Maintain O2 sats between 88-92% #Bacteremia- Blood cultures growing coag neg staph, probably contaminant- No evidence of sepsis since admission. #R leg pain-resolving now #pre-diabetes- New diagnosis with HgbA1C 6.0 #Tobacco use-Counseled on cessation, continue nicotine patch Patient Condition: Stable Procedures 2D ECHO: Conclusions: Lower limits of normal systolic function. Normal left ventricular wall thickness. Mild concentric left ventricular hypertrophy. Ejection fraction is visually estimated at 50-55 %. Tissue Doppler/Mitral Doppler indices are within normal limits. Normal appearance of the mitral valve. Trace mitral regurgitation. Normal appearance of the tricuspid valve. Unable to obtain RVSP due to minimal presence of tricuspid regurgitation. Hx of Present Illness 38-year-old super morbidly obese man who presents with right leg pain and swelling. Most of history taken per family at bedside; patient is in respiratory distress on BiPAP. Apparently he had a few days of R leg swelling, two days of fever, then yesterday developed leg redness. While walking, he collapsed and fell due to the leg pain and weakness. So family brought him into the emergency room. Apparently he has chronic respiratory distress which has been going on for months, possibly years. Mother reports he constantly has gasping breaths day and night and often has apneic episodes lasting up to five minutes at night when sleeping. He has chronic cough productive of sputum which has been going on for months. Severe daytime sleepiness, often falls asleep during conversations. The patient smokes 1 pack per day, he is unemployed and lives at home with mother, father, and sister. He has frequent episodes of anxiety for which he gets up and compulsively searches for food at home. He has not been hospitalized in over 10 years and has not seen a doctor during this time either. Hospital Course Patient was admitted and seen by pulmonary team during his hospital stay. Normal results listed above. More importantly regarding his respiratory symptoms, he was diagnosed with acute on chronic hypercapnic and hypoxemic respiratory failure, likely secondary to OHS and DAMON. Patient also has a history of heavy smoking, counseled on cessation in order for nicotine patch. He required BiPAP at night. He also required oxygen supplementation and his saturations were maintained between 88-92%. Over the course of his hospital stay his breathing symptoms improved, he was able to ambulate, tolerated p.o. diet. Labs and vital signs were stable. Per recommendations from pulmonary team and diagnosis from pulmonary team, patient suffers from obesity hypoventilation restrictive lung disease and hypercapnia that impairs him to adequately exchange oxygenation and PCO2. He will need a noninvasive trilogy bed with oxygen because he desaturates to 87% on room air at rest. Noninvasive therapy is needed with all other devices ruled out. Case management has been working on setting up his home oxygen and BiPAP machine, once this is confirmed today he will be discharged home today in improved condition. He will follow-up with primary care doctor lung doctor in the clinic in the next few days as well. See below for full list of discharge medications. Home Meds Active Scripts Furosemide (Lasix) 20 Mg Tab, 20 MG PO DAILY, #30 TAB 3 Refills Prov:EMILI OLVERA. 08/16/18 Levalbuterol* (Xopenex* HFA) 15 Gm Inha, 2 PUFFS INH Q4H PRN for WHEEZING AND SOB, #1 INHALER 7 Refills Prov:EMILI OLVERA. 08/16/18 Nicotine* (Nicotine* Patch) 21 mg/day Patch, 1 PATCH TRANSDERM DAILY, #30 BOTTLE 2 Refills Prov:EMILI OLVERA 08/16/18 Follow-up Plan Please take your medications as prescribed, see your doctor in the clinic in the next 1 week. Primary Care Provider Not On Staff Doctor Time spent on discharge: > 30 minutes EMILI OLVERA Aug 16, 2018 12:01
== END 2018-08-16 21:25 | disposition home or self-care (01) | DRG 189 ==
LOC: E/R 16:10 → TEL 18:27 → ICU 08-10 10:19 → TEL 08-11 15:20
PROVIDERS: ADMIT Internal Medicine; ATTEND Hospitalist
PROC: 5A09557 Assistance with Respiratory Ventilation, Greater than 96 Consecutive Hours, Continuous Positive Airway Pressure (ICD-10-PCS; principal; 2018-08-08)
DX: J96.22 Acute and chronic respiratory failure with hypercapnia (principal); J18.9 Pneumonia, unspecified organism; J44.0 Chronic obstructive pulmonary disease with (acute) lower respiratory infection; E66.2 Morbid (severe) obesity with alveolar hypoventilation; Z68.43 Body mass index [BMI] 50.0-59.9, adult; E87.2 Acidosis; L03.115 Cellulitis of right lower limb; R78.81 Bacteremia; J96.21 Acute and chronic respiratory failure with hypoxia; I87.8 Other specified disorders of veins; R73.03 Prediabetes; Z72.0 Tobacco use; J20.9 Acute bronchitis, unspecified; B95.8 Unspecified staphylococcus as the cause of diseases classified elsewhere; G47.33 Obstructive sleep apnea (adult) (pediatric)
CPT/HCPCS: 36415; 36600; 71045; 71250; 73700; 80048; 80053; 80061; 82803; 83036; 83605; 83735; 84100; 84443; 84484; 85025; 85610; 85730; 87081; 87400; 93005; 93306; 93971; 94640; 94660; 94760; 96374; 96375; 97162; C9113; J0456; J0696; J1644; J1940; J2920; J7030; J7512

== ENCOUNTER 2018-08-19 21:08 | Inpatient (IN) | payer MEDICAID, OTHER ==
[~2018-08-19] VITALS: Ht 167.6 cm; Wt 151.1 kg
[~2018-08-19 21:08] MED LIST: LAS20 PO; LEVA15HF6 INH; NICO-546 TRANSDERM
[2018-08-20] MEDS ORDERED: SODIUM CHLORIDE 0.9% 1L BAG IV* STA (01:07)
[2018-08-20] MEDS ORDERED: VANCOMYCIN 1 GM (PMX) 250 ML IVPB ONE (02:00)
[2018-08-20] MEDS ORDERED: PIPER-TAZO 3.375 GM IV (PMX) 100 ML IVPB ONE (02:00)
--- NOTE | 2018-08-20 02:23 | ERD ---
ER Documentation Chief Complaint Chief Complaint RT LOWER LEG ABSCESS HPI This is a 38-year-old male was recently admitted for right lower extremity cellulitis and discharged home on antibiotics. He said that over the past 2 days a cellulitis Progressively worse and his progress passes original state. Denies fevers but complains of chills. Mild nausea but no vomiting. No other current complaints. ROS All systems reviewed and are negative except as per history of present illness. Medications Home Meds Active Scripts Furosemide (Lasix) 20 Mg Tab, 20 MG PO DAILY, #30 TAB 3 Refills Prov:NELDA OLVERAP S. 08/16/18 Levalbuterol* (Xopenex* HFA) 15 Gm Inha, 2 PUFFS INH Q4H PRN for WHEEZING AND SOB, #1 INHALER 7 Refills Prov:NELDA OLVERAP S. 08/16/18 Nicotine* (Nicotine* Patch) 21 mg/day Patch, 1 PATCH TRANSDERM DAILY, #30 BOTTLE 2 Refills Prov:NELDA OLVERAP S. 08/16/18 Allergies Allergies: Coded Allergies: No Known Allergy (Unverified , 08/08/18) PMhx/Soc History of Surgery: No Anesthesia Reaction: No Hx Neurological Disorder: No Hx Respiratory Disorders: Yes (reso failure, sleep apnea) Hx Cardiac Disorders: No Hx Psychiatric Problems: No Hx Miscellaneous Medical Probl: Yes (morbid obesity) Hx Alcohol Use: No Hx Substance Use: No Hx Tobacco Use: Yes Physical Exam Vitals Vital Signs Date Temp Pulse Resp B/P (MAP) Pulse Ox O2 O2 Flow FiO2 Time Delivery Rate 08/19/18 98.7 120 18 148/88 94 21:12 (108) Physical Exam Const: No acute distress Head: Atraumatic Eyes: Normal Conjunctiva ENT: Normal External Ears, Nose and Mouth. Neck: Full range of motion. No meningismus. Resp: Clear to auscultation bilaterally Cardio: Regular rate and rhythm, no murmurs Abd: Soft, non tender, non distended. Normal bowel sounds Skin: Erythema and induration noted in the right lower extremity. Back: No midline or flank tenderness Ext: No cyanosis, or edema Neur: Awake and alert Psych: Normal Mood and Affect Result Diagram: 08/20/18 0110 08/20/18 011 Results 24 hrs Laboratory Tests Test 08/20/18 01:10 White Blood Count 7.8 10^3/ul Red Blood Count 5.27 10^6/ul Hemoglobin 14.3 g/dl Hematocrit 46.3 % Mean Corpuscular Volume 87.9 fl Mean Corpuscular Hemoglobin 27.1 pg Mean Corpuscular Hemoglobin Concent 30.9 g/dl Red Cell Distribution Width 16.6 % Platelet Count 213 10^3/UL Mean Platelet Volume 11.3 fl Immature Granulocytes % 1.200 % Neutrophils % 62.7 % Lymphocytes % 25.3 % Monocytes % 9.5 % Eosinophils % 1.0 % Basophils % 0.3 % Nucleated Red Blood Cells % 0.0 /100WBC Immature Granulocytes # 0.090 10^3/ul Neutrophils # 4.9 10^3/ul Lymphocytes # 2.0 10^3/ul Monocytes # 0.7 10^3/ul Eosinophils # 0.1 10^3/ul Basophils # 0.0 10^3/ul Nucleated Red Blood Cells # 0.0 10^3/ul Prothrombin Time 15.5 Sec Prothrombin Time Ratio 1.2 INR International Normalized Ratio 1.22 Activated Partial Thromboplast Time 29.7 Sec Urine Color YELLOW Urine Clarity SLIGHTLY CLOUDY Urine pH 7.0 Urine Specific [place] 1.025 Urine Ketones NEGATIVE mg/dL Urine Nitrite NEGATIVE mg/dL Urine Bilirubin NEGATIVE mg/dL Urine Urobilinogen 1+ mg/dL Urine Leukocyte Esterase NEGATIVE [place]/ul Urine Microscopic RBC 0 /HPF Urine Microscopic WBC 1 /HPF Urine Squamous Epithelial Cells FEW /HPF Urine Hemoglobin NEGATIVE mg/dL Urine Glucose NEGATIVE mg/dL Urine Total Protein NEGATIVE mg/dl Sodium Level 140 mmol/L Potassium Level 4.0 mmol/L Chloride Level 99 mmol/L Carbon Dioxide Level 31 mmol/L Anion Gap 10 Blood Urea Nitrogen 22 mg/dl Creatinine 1.16 mg/dl Est Glomerular Filtrat Rate mL/min > 60 mL/min Glucose Level 109 mg/dl Lactic Acid Level 1.1 mmol/L Calcium Level 9.0 mg/dl Total Bilirubin 0.2 mg/dl Direct Bilirubin 0.00 mg/dl Indirect Bilirubin 0.2 mg/dl Aspartate Amino Transf (AST/SGOT) 23 IU/L Alanine Aminotransferase (ALT/SGPT) 50 IU/L Alkaline Phosphatase 79 IU/L Troponin I < 0.012 ng/ml Total Protein 8.1 g/dl Albumin 4.0 g/dl Globulin 4.10 g/dl Albumin/Globulin Ratio 0.97 Current Medications Medications Dose Sig/Ciera Start Time Status Last (Trade) Ordered Route PRN Stop Time Admin Dose Reason Admin Sodium 1,780 ml BOLUS OVER 2 08/20/18 DC 08/20/18 Chloride HOURS STAT 01:07 01:06 (NS) IV* 08/20/18 01:08 Piperacillin 100 ml @ ONCE ONCE 08/20/18 Sod/ 200 mls/hr IVPB 02:00 Tazobactam 08/20/18 02:29 Sod Vancomycin 250 ml @ ONCE ONCE 08/20/18 HCl 125 mls/hr IVPB 02:00 08/20/18 03:59 Procedures/MDM EKG: Rate/Rhythm: Sinus tachycardia QRS, ST, T-waves: [No changes consistent w/ acute ischemia], normal intervals, upgoing T waves Impression: [No evidence of ischemia but evidence of sinus tachycardia Chest X-ray 1V Interpreted by me: Soft Tissue: No acute abnormali ties Bones: No acute abnormalities Mediastinum/Cardiac Silhouette/Lungs: [No acute abnormalities] Medical decision makin-year-old male with evidence of worsening lower extremity cellulitis. No evidence of sepsis. Blood pressure remained normal throughout his stay. Started on Vanco and Zosyn pending cultures. Patient admitted to hospitalist. Departure Diagnosis: Primary Impression: Cellulitis Site of cellulitis: unspecified site Qualified Codes: L03.90 - Cellulitis, unspecified Condition: Serious DAVID HARVEY Aug 20, 2018 02:23
[2018-08-20 04:15] VITALS: Ht 167.6 cm; Wt 151.1 kg
[2018-08-20] MEDS ORDERED: VANCOMYCIN IV PER PHARMACY XX SCH (06:00)
[2018-08-20] MEDS ORDERED: HYDROCODONE/APAP (5/325) TAB PO PRN ×2 (06:00)
[2018-08-20] MEDS ORDERED: ACETAMINOPHEN 325 MG TAB PO PRN (06:00)
[2018-08-20] MEDS ORDERED: NACL 0.9% 3 ML SYG IV SCH (06:00)
[2018-08-20] MEDS ORDERED: ONDANSETRON 4 MG INJ IV PRN (06:00)
[2018-08-20] MEDS ORDERED: ALBUTEROL/IPRATROPIUM (NEB) 3 ML AMP HHN PRN (06:00)
--- NOTE | 2018-08-20 06:25 | HP ---
Date/Time of Note Date/Time of Note DATE: 08/20/18 TIME: 06:20 Assessment/Plan VTE Prophylaxis Risk score (from Ns)>0 risk: 1 SCD applied (from Ns): Yes Pharmacological prophylaxis: heparin Lines/Catheters IV Catheter Type (from Nrsg): Saline Lock Assessment/Plan Assessment/Plan 1. Right lower extremity infection -IV antibiotic -Wound culture and wound care consult -ID consult 2. DAMON -Supplemental oxygen, bronchodilators. As needed BiPAP 3. COPD: See #2 4. Morbid obesity with a BMI of 54: Weight reduction advised Result Diagram: 08/20/1810908/20/18109 Results 24hrs Laboratory Tests Test 08/20/18 01:10 White Blood Count 7.8 # Red Blood Count 5.27 Hemoglobin 14.3 Hematocrit 46.3 Mean Corpuscular Volume 87.9 Mean Corpuscular Hemoglobin 27.1 L Mean Corpuscular Hemoglobin Concent 30.9 L Red Cell Distribution Width 16.6 H Platelet Count 213 # Mean Platelet Volume 11.3 H Immature Granulocytes % 1.200 H Neutrophils % 62.7 Lymphocytes % 25.3 Monocytes % 9.5 Eosinophils % 1.0 Basophils % 0.3 Nucleated Red Blood Cells % 0.0 Immature Granulocytes # 0.090 H Neutrophils # 4.9 Lymphocytes # 2.0 Monocytes # 0.7 Eosinophils # 0.1 Basophils # 0.0 Nucleated Red Blood Cells # 0.0 Prothrombin Time 15.5 H Prothrombin Time Ratio 1.2 INR International Normalized Ratio 1.22 Activated Partial Thromboplast Time 29.7 Urine Color YELLOW Urine Clarity SLIGHTLY CLOUDY A Urine pH 7.0 Urine Specific [place] 1.025 Urine Ketones NEGATIVE Urine Nitrite NEGATIVE Urine Bilirubin NEGATIVE Urine Urobilinogen 1+ H Urine Leukocyte Esterase NEGATIVE Urine Microscopic RBC 0 Urine Microscopic WBC 1 Urine Squamous Epithelial Cells FEW Urine Hemoglobin NEGATIVE Urine Glucose NEGATIVE Urine Total Protein NEGATIVE Sodium Level 140 Potassium Level 4.0 Chloride Level 99 Carbon Dioxide Level 31 Anion Gap 10 Blood Urea Nitrogen 22 H Creatinine 1.16 Est Glomerular Filtrat Rate mL/min > 60 Glucose Level 109 Lactic Acid Level 1.1 Calcium Level 9.0 Total Bilirubin 0.2 Direct Bilirubin 0.00 Indirect Bilirubin 0.2 Aspartate Amino Transf (AST/SGOT) 23 Alanine Aminotransferase (ALT/SGPT) 50 Alkaline Phosphatase 79 Troponin I < 0.012 Total Protein 8.1 Albumin 4.0 Globulin 4.10 H Albumin/Globulin Ratio 0.97 HPI/ROS Admit Date/Time Admit Date/Time Aug 20, 2018 at 01:56 Hx of Present Illness This is a 38-year-old morbidly obese male with a history of DAMON, possible COPD and recent right leg cellulitis who presents the ER complaining of worsening right cough swelling and infection. Patient was just discharged on 08/16 after he was admitted for respiratory failure requiring BiPAP and also right leg cellulitis. He he said a bump on of the right calf has been growing and noted some yellowish discharge. During his recent admission he was noted to have a venous stasis change. Venous study was negative for DVT. PMH/Family/Social Past Medical History Medical History: other (See HPI) Medications Current Medications IV Flush (NS 3 ml) 3 ml PER PROTOCOL IV ; Start 08/20/18 at 06:00; Status UNV Ondansetron HCl (Zofran Inj) 4 mg Q6H PRN IV NAUSEA/VOMITING; Start 08/20/18 at 06:00; Status UNV Acetaminophen (Tylenol Tab) 650 mg Q6H PRN PO .PAIN 1-3 OR TEMP; Start 08/20/18 at 06:00; Status UNV Acetaminophen/ Hydrocodone Bitart ([place] (5/325)) 1 tab Q6H PRN PO .MOD PAIN 4- 6; Start 08/20/18 at 06:00; Status UNV Acetaminophen/ Hydrocodone Bitart ([place] (5/325)) 2 tab Q6H PRN PO .SEVERE PAIN 7-10; Start 08/20/18 at 06:00; Status UNV Enoxaparin Sodium (Lovenox) 40 mg DAILY SC ; Start 08/20/18 at 09:00; Status UNV Albuterol/ Ipratropium (Duoneb) 3 ml Q2H RESP THERAPY PRN HHN SHORTNESS OF BREATH; Start 08/20/18 at 06:00; Status UNV Furosemide (Lasix) 20 mg DAILY PO ; Start 08/20/18 at 09:00; Status UNV Nicotine (Nicoderm 21 Mg/ 24hr) 1 patch DAILY TRANSDERM ; Start 08/20/18 at 09:00; Status UNV Vancomycin HCl (Vanco Iv Per Pharmacy) VANCOMYCIN PER PHARMACY PER PROTOCOL XX ; Start 08/20/18 at 06:00; Status UNV Cefepime HCl 50 ml @ 100 mls/hr Q12 IVPB ; Start 08/20/18 at 09:00; Status UNV Coded Allergies: No Known Allergy (Unverified , 08/08/18) Past Surgical History Past Surgical Hx: other (See HPI) Family History Significant Family History: no pertinent family hx Social History Alcohol Use: none Smoking Status: Former smoker Drug Use: none Exam/Review of Systems Vital Signs Vitals Vital Signs Date Temp Pulse Resp B/P (MAP) Pulse Ox O2 O2 Flow FiO2 Time Delivery Rate 08/20/18 100 23 112/65 100 Nasal 2.0 03:29 (81) Cannula 08/19/18 98.7 21:12 Exam Constitutional: other (No acute distress) Head: normocephalic, atraumatic Eyes: EOMI, PERRL Respiratory: other (Decreased breath sounds at the bases bilaterally) Cardiovascular: other (Tachycardic regular rhythm) Gastrointestinal: soft, non-tender Extremities: other (Right calf with weeping yellowish discharge) DAVID GONZALEZ MD Aug 20, 2018 06:25
[2018-08-20 08:00] VITALS: BP 135/75; PULSE 95; RESP 21
[2018-08-20] MEDS ORDERED: VANCOMYCIN HCL 2 GM in SOD CHLORIDE 0.9% 500 ML IVPB SCH (08:00)
[2018-08-20] MEDS: ENOXAPARIN 40 MG/0.4 ML SYG SC SCH (08:09)
[2018-08-20] MEDS: FUROSEMIDE 20 MG TAB PO SCH (08:10)
[2018-08-20] MEDS: CEFEPIME 1GM/50 ML (PMX) 50 ML IVPB SCH (08:12)
[2018-08-20] MEDS: NICOTINE (21 MG/24 HR) PATCH TRANSDERM SCH (08:12)
[2018-08-20 14:36] VITALS: BP 131/75; PULSE 91; RESP 22
--- NOTE | 2018-08-20 18:38 | PN ---
Date/Time of Note Date/Time of Note DATE: 08/20/18 TIME: 18:36 Assessment/Plan VTE Prophylaxis Risk score (from Nsg)>0 risk: 2 SCD applied (from Ns): No SCD contraindicated: other Pharmacological prophylaxis: LMWH Lines/Catheters IV [facility] Saline Lock Assessment/Plan Hospital Course SUBJECTIVE: Denies any pain. OBJECTIVE: Physical Exam General: Morbidly obese 38 year-old year-old male lying in bed in no apparent distress. HEENT: Normocephalic, atraumatic. Eyes: Anicteric sclerae, conjunctivae clear. ENT: Nasal septum midline, oral mucosa moist. Neck supple, no JVD noticed. Respiratory: Bilaterally clear breath sounds. No use of accessory muscles of respiration. No adventitious breath sounds. Cardiovascular: S1, S2 heard. Regular rate and rhythm Abdomen: Soft, nontender, and nondistended. Bowel sounds positive in all 4 quadrants. Genitourinary: Deferred. Extremities: No cyanosis, no clubbing. Bilateral lower extremity venous stasis changes. Wound on the right adams. Neurologic: Cranial nerves II through XII grossly intact. The patient is awake, alert, and oriented. Labs & Vitals per chart ASSESSMENT & PLAN This is a 38-year-old male with comorbidities including morbid obesity, COPD, obstructive sleep apnea, prediabetes, and nicotine use. The patient was recently evaluated at [facility] and was discharged home on 08/16/2018. At that time, the patient had right lower extremity pain and the patient underwent a right lower extremity CT scan that was showing extensive anterolateral subcutaneous infiltration/fluid collection superficial to the muscles and patella. The patient came back to the ER on 08/20/2018 with chief complaint of a right adams blister that was draining "pus." The patient was admitted to inpatient setting for further treatment and evaluation. 1. Right lower extremity venous stasis with underlying cellulitis and possibly underlying abscess. -Continue antimicrobials including coverage for MRSA. -Podiatry evaluation. -LLE MRI to evaluate for any abscess or bone involvement. 2. Obstructive sleep apnea. - Nocturnal CPAP. 3. Nicotine use. -Cessation advised. 4. Morbid obesity. -BMI more than 53 kg/m. -Weight reduction advised. 5. Prediabetes. -Monitor glycemic trends. 6. Fluids, electrolytes, and nutrition. -Low-cholesterol diet. 7. DVT prophylaxis. -Subcutaneous Lovenox. 8. Plan. -Continue antimicrobials. -Await podiatry evaluation. The patient was seen in collaboration with Dr. Rosas. Result Diagram: 08/20/18 01108/20/18 0110 Results 24hrs Laboratory Tests Test 08/20/18 01:10 White Blood Count 7.8 # Red Blood Count 5.27 Hemoglobin 14.3 Hematocrit 46.3 Mean Corpuscular Volume 87.9 Mean Corpuscular Hemoglobin 27.1 L Mean Corpuscular Hemoglobin Concent 30.9 L Red Cell Distribution Width 16.6 H Platelet Count 213 # Mean Platelet Volume 11.3 H Immature Granulocytes % 1.200 H Neutrophils % 62.7 Lymphocytes % 25.3 Monocytes % 9.5 Eosinophils % 1.0 Basophils % 0.3 Nucleated Red Blood Cells % 0.0 Immature Granulocytes # 0.090 H Neutrophils # 4.9 Lymphocytes # 2.0 Monocytes # 0.7 Eosinophils # 0.1 Basophils # 0.0 Nucleated Red Blood Cells # 0.0 Prothrombin Time 15.5 H Prothrombin Time Ratio 1.2 INR International Normalized Ratio 1.22 Activated Partial Thromboplast Time 29.7 Urine Color YELLOW Urine Clarity SLIGHTLY CLOUDY A Urine pH 7.0 Urine Specific [place] 1.025 Urine Ketones NEGATIVE Urine Nitrite NEGATIVE Urine Bilirubin NEGATIVE Urine Urobilinogen 1+ H Urine Leukocyte Esterase NEGATIVE Urine Microscopic RBC 0 Urine Microscopic WBC 1 Urine Squamous Epithelial Cells FEW Urine Hemoglobin NEGATIVE Urine Glucose NEGATIVE Urine Total Protein NEGATIVE Sodium Level 140 Potassium Level 4.0 Chloride Level 99 Carbon Dioxide Level 31 Anion Gap 10 Blood Urea Nitrogen 22 H Creatinine 1.16 Est Glomerular Filtrat Rate mL/min > 60 Glucose Level 109 Lactic Acid Level 1.1 Calcium Level 9.0 Total Bilirubin 0.2 Direct Bilirubin 0.00 Indirect Bilirubin 0.2 Aspartate Amino Transf (AST/SGOT) 23 Alanine Aminotransferase (ALT/SGPT) 50 Alkaline Phosphatase 79 Troponin I < 0.012 Total Protein 8.1 Albumin 4.0 Globulin 4.10 H Albumin/Globulin Ratio 0.97 Exam/Review of Systems Exam Vitals Vital Signs Date Temp Pulse Resp B/P (MAP) Pulse Ox O2 O2 Flow FiO2 Time Delivery Rate 08/20/18 97.7 91 22 131/75 99 14:36 (93) 08/20/18 Nasal 2.0 03:29 Cannula Intake and Output 08/19/18 08/19/18 08/20/18 1515:00 23:00 07:00 IntakeIntake Total 240 ml BalanceBalance 240 ml Results Results 24hrs Laboratory Tests Test 08/20/18 01:10 White Blood Count 7.8 # Red Blood Count 5.27 Hemoglobin 14.3 Hematocrit 46.3 Mean Corpuscular Volume 87.9 Mean Corpuscular Hemoglobin 27.1 L Mean Corpuscular Hemoglobin Concent 30.9 L Red Cell Distribution Width 16.6 H Platelet Count 213 # Mean Platelet Volume 11.3 H Immature Granulocytes % 1.200 H Neutrophils % 62.7 Lymphocytes % 25.3 Monocytes % 9.5 Eosinophils % 1.0 Basophils % 0.3 Nucleated Red Blood Cells % 0.0 Immature Granulocytes # 0.090 H Neutrophils # 4.9 Lymphocytes # 2.0 Monocytes # 0.7 Eosinophils # 0.1 Basophils # 0.0 Nucleated Red Blood Cells # 0.0 Prothrombin Time 15.5 H Prothrombin Time Ratio 1.2 INR International Normalized Ratio 1.22 Activated Partial Thromboplast Time 29.7 Urine Color YELLOW Urine Clarity SLIGHTLY CLOUDY A Urine pH 7.0 Urine Specific [place] 1.025 Urine Ketones NEGATIVE Urine Nitrite NEGATIVE Urine Bilirubin NEGATIVE Urine Urobilinogen 1+ H Urine Leukocyte Esterase NEGATIVE Urine Microscopic RBC 0 Urine Microscopic WBC 1 Urine Squamous Epithelial Cells FEW Urine Hemoglobin NEGATIVE Urine Glucose NEGATIVE Urine Total Protein NEGATIVE Sodium Level 140 Potassium Level 4.0 Chloride Level 99 Carbon Dioxide Level 31 Anion Gap 10 Blood Urea Nitrogen 22 H Creatinine 1.16 Est Glomerular Filtrat Rate mL/min > 60 Glucose Level 109 Lactic Acid Level 1.1 Calcium Level 9.0 Total Bilirubin 0.2 Direct Bilirubin 0.00 Indirect Bilirubin 0.2 Aspartate Amino Transf (AST/SGOT) 23 Alanine Aminotransferase (ALT/SGPT) 50 Alkaline Phosphatase 79 Troponin I < 0.012 Total Protein 8.1 Albumin 4.0 Globulin 4.10 H Albumin/Globulin Ratio 0.97 Medications Medication Current Medications IV Flush (NS 3 ml) 3 ml PER PROTOCOL IV ; Start 08/20/18 at 06:00 Ondansetron HCl (Zofran Inj) 4 mg Q6H PRN IV NAUSEA/VOMITING; Start 08/20/18 at 06:00 Acetaminophen (Tylenol Tab) 650 mg Q6H PRN PO .PAIN 1-3 OR TEMP; Start 08/20/18 at 06:00 Acetaminophen/ Hydrocodone Bitart ([place] (5/325)) 1 tab Q6H PRN PO .MOD PAIN 4- 6; Start 08/20/18 at 06:00 Acetaminophen/ Hydrocodone Bitart ([place] (5/325)) 2 tab Q6H PRN PO .SEVERE PAIN 7-10; Start 08/20/18 at 06:00 Enoxaparin Sodium (Lovenox) 40 mg DAILY SC Last administered on 08/20/18at 08:09; Admin Dose 40 MG; Start 08/20/18 at 09:00 Albuterol/ Ipratropium (Duoneb) 3 ml Q2H RESP THERAPY PRN HHN SHORTNESS OF BREATH; Start 08/20/18 at 06:00 Furosemide (Lasix) 20 mg DAILY PO Last administered on 08/20/18at 08:10; Admin Dose 20 MG; Start 08/20/18 at 09:00 Nicotine (Nicoderm 21 Mg/ 24hr) 1 patch DAILY TRANSDERM ; Start 08/20/18 at 09:00 Vancomycin HCl (Vanco Iv Per Pharmacy) VANCOMYCIN PER PHARMACY PER PROTOCOL XX ; Start 08/20/18 at 06:00 Cefepime HCl 50 ml @ 100 mls/hr Q12 IVPB Last administered on 08/20/18at 08:12; Admin Dose 100 MLS/HR; Start 08/20/18 at 07:30 Vancomycin HCl 1.5 gm/Sodium Chloride 250 ml @ 83.333 mls/ hr Q12H IVPB ; Start 08/20/18 at 20:00 BHARGAV PUENTE NP Aug 20, 2018 18:38
[2018-08-20 19:44] VITALS: BP 121/71; PULSE 93; RESP 20
[2018-08-20] MEDS: VANCOMYCIN HCL 1.5 GM in SOD CHLORIDE 0.9% 250 ML IVPB SCH (20:02)
--- NOTE | 2018-08-20 20:13 | CONS ---
Assessment/Plan Assessment/Plan Assessment/Plan (Daily) RLE cellulitis RLE venous ulcer RLE edema RLE suspected abscess Pain in limb R COPD DAMON Morbid obesity. Plan Wound cultures ordered along with X-ray and MRI. Discussed with patient that there is a suspected abscess and would benefit from OR incision and drainage and further debridement. Patient will likely need staged debridements with possible wound VAC application. Awaiting imaging and culture results. Continue with IV abx. Nursing recommendations provided for daily dressing changes. Elevate and offload right lower extremity with pillows. Consultation Date/Type/Reason Admit Date/Time Aug 20, 2018 at 01:56 Date/Time of Note DATE: 08/20/18 TIME: 20:13 Hx of Present Illness 38 y/o M patient with hx of DAMON, COPD, borderline diabetic and morbid obesity presents to the floor with right lower extremity ulceration, cellulitis with swelling and suspicion for abscess. Patient states he was admitted previously respiratory failure and was on bipap. Patient states the wound started out as a small ball and became larger with some discharge. Patient reports pain to the area and localized to the wound sites. Denies constitutional symptoms. ROS Negative except for HPI Past Medical History COPD, DAMON, morbid obesity Medical History: other (See HPI) Home Meds Active Scripts Furosemide (Lasix) 20 Mg Tab, 20 MG PO DAILY, #30 TAB 3 Refills Prov:EMILI OLVERA S. 08/16/18 Levalbuterol* (Xopenex* HFA) 15 Gm Inha, 2 PUFFS INH Q4H PRN for WHEEZING AND SOB, #1 INHALER 7 Refills Prov:EMILI OLVERA S. 08/16/18 Nicotine* (Nicotine* Patch) 21 mg/day Patch, 1 PATCH TRANSDERM DAILY, #30 BOTTLE 2 Refills Prov:EMILI OLVERA S. 08/16/18 Medications Current Medications IV Flush (NS 3 ml) 3 ml PER PROTOCOL IV ; Start 08/20/18 at 06:00 Ondansetron HCl (Zofran Inj) 4 mg Q6H PRN IV NAUSEA/VOMITING; Start 08/20/18 at 06:00 Acetaminophen (Tylenol Tab) 650 mg Q6H PRN PO .PAIN 1-3 OR TEMP; Start 08/20/18 at 06:00 Acetaminophen/ Hydrocodone Bitart ([place] (5/325)) 1 tab Q6H PRN PO .MOD PAIN 4- 6; Start 08/20/18 at 06:00 Acetaminophen/ Hydrocodone Bitart ([place] (5/325)) 2 tab Q6H PRN PO .SEVERE PAIN 7-10; Start 08/20/18 at 06:00 Enoxaparin Sodium (Lovenox) 40 mg DAILY SC Last administered on 08/20/18at 08:09; Admin Dose 40 MG; Start 08/20/18 at 09:00 Albuterol/ Ipratropium (Duoneb) 3 ml Q2H RESP THERAPY PRN HHN SHORTNESS OF BREATH; Start 08/20/18 at 06:00 Furosemide (Lasix) 20 mg DAILY PO Last administered on 08/20/18at 08:10; Admin Dose 20 MG; Start 08/20/18 at 09:00 Nicotine (Nicoderm 21 Mg/ 24hr) 1 patch DAILY TRANSDERM ; Start 08/20/18 at 09:00 Vancomycin HCl (Vanco Iv Per Pharmacy) VANCOMYCIN PER PHARMACY PER PROTOCOL XX ; Start 08/20/18 at 06:00 Cefepime HCl 50 ml @ 100 mls/hr Q12 IVPB Last administered on 08/20/18at 08:12; Admin Dose 100 MLS/HR; Start 08/20/18 at 07:30 Vancomycin HCl 1.5 gm/Sodium Chloride 250 ml @ 83.333 mls/ hr Q12H IVPB Last administered on 08/20/18at 20:02; Admin Dose 83.333 MLS/HR; Start 08/20/18 at 20:00 Allergies: Coded Allergies: No Known Allergy (Unverified , 08/08/18) Past Surgical History none reported Past Surgical Hx: other (See HPI) Family History Significant Family History: no pertinent family hx Social History Alcohol Use: none Smoking Status: Former smoker Drug Use: none Exam/Review of Systems Exam Vitals Vital Signs Date Temp Pulse Resp B/P (MAP) Pulse Ox O2 O2 Flow FiO2 Time Delivery Rate 08/20/18 97.9 93 20 121/71 97 19:44 (88) 08/20/18 Nasal 2.0 03:29 Cannula Intake and Output 08/19/18 08/19/18 08/20/18 1515:00 23:00 07:00 IntakeIntake Total 240 ml BalanceBalance 240 ml Exam DP/PT pulses palpable 2+/4 Protective sensations intact pedal hairs appreciated Diffuse erythema to right lower leg with increased 2+ pitting edema compared to contralateral limb Right anterior ulcer fibrogranular with fluctuance noted 3 x 3cm which protrudes outward. No tunneling or probing appreciated. Muscle strength 5/5 in all compartments of the foot No pain with calf squeeze Results Result Diagram: 08/20/18 0110 08/20/18 0110 Results 24hrs Laboratory Tests Test 08/20/18 01:10 White Blood Count 7.8 # Red Blood Count 5.27 Hemoglobin 14.3 Hematocrit 46.3 Mean Corpuscular Volume 87.9 Mean Corpuscular Hemoglobin 27.1 L Mean Corpuscular Hemoglobin Concent 30.9 L Red Cell Distribution Width 16.6 H Platelet Count 213 # Mean Platelet Volume 11.3 H Immature Granulocytes % 1.200 H Neutrophils % 62.7 Lymphocytes % 25.3 Monocytes % 9.5 Eosinophils % 1.0 Basophils % 0.3 Nucleated Red Blood Cells % 0.0 Immature Granulocytes # 0.090 H Neutrophils # 4.9 Lymphocytes # 2.0 Monocytes # 0.7 Eosinophils # 0.1 Basophils # 0.0 Nucleated Red Blood Cells # 0.0 Prothrombin Time 15.5 H Prothrombin Time Ratio 1.2 INR International Normalized Ratio 1.22 Activated Partial Thromboplast Time 29.7 Urine Color YELLOW Urine Clarity SLIGHTLY CLOUDY A Urine pH 7.0 Urine Specific [place] 1.025 Urine Ketones NEGATIVE Urine Nitrite NEGATIVE Urine Bilirubin NEGATIVE Urine Urobilinogen 1+ H Urine Leukocyte Esterase NEGATIVE Urine Microscopic RBC 0 Urine Microscopic WBC 1 Urine Squamous Epithelial Cells FEW Urine Hemoglobin NEGATIVE Urine Glucose NEGATIVE Urine Total Protein NEGATIVE Sodium Level 140 Potassium Level 4.0 Chloride Level 99 Carbon Dioxide Level 31 Anion Gap 10 Blood Urea Nitrogen 22 H Creatinine 1.16 Est Glomerular Filtrat Rate mL/min > 60 Glucose Level 109 Lactic Acid Level 1.1 Calcium Level 9.0 Total Bilirubin 0.2 Direct Bilirubin 0.00 Indirect Bilirubin 0.2 Aspartate Amino Transf (AST/SGOT) 23 Alanine Aminotransferase (ALT/SGPT) 50 Alkaline Phosphatase 79 Troponin I < 0.012 Total Protein 8.1 Albumin 4.0 Globulin 4.10 H Albumin/Globulin Ratio 0.97 Medications Medication Current Medications IV Flush (NS 3 ml) 3 ml PER PROTOCOL IV ; Start 08/20/18 at 06:00 Ondansetron HCl (Zofran Inj) 4 mg Q6H PRN IV NAUSEA/VOMITING; Start 08/20/18 at 06:00 Acetaminophen (Tylenol Tab) 650 mg Q6H PRN PO .PAIN 1-3 OR TEMP; Start 08/20/18 at 06:00 Acetaminophen/ Hydrocodone Bitart ([place] (5/325)) 1 tab Q6H PRN PO .MOD PAIN 4- 6; Start 08/20/18 at 06:00 Acetaminophen/ Hydrocodone Bitart ([place] (5/325)) 2 tab Q6H PRN PO .SEVERE PAIN 7-10; Start 08/20/18 at 06:00 Enoxaparin Sodium (Lovenox) 40 mg DAILY SC Last administered on 08/20/18at 08:09; Admin Dose 40 MG; Start 08/20/18 at 09:00 Albuterol/ Ipratropium (Duoneb) 3 ml Q2H RESP THERAPY PRN HHN SHORTNESS OF BREATH; Start 08/20/18 at 06:00 Furosemide (Lasix) 20 mg DAILY PO Last administered on 08/20/18at 08:10; Admin Dose 20 MG; Start 08/20/18 at 09:00 Nicotine (Nicoderm 21 Mg/ 24hr) 1 patch DAILY TRANSDERM ; Start 08/20/18 at 09:00 Vancomycin HCl (Vanco Iv Per Pharmacy) VANCOMYCIN PER PHARMACY PER PROTOCOL XX ; Start 08/20/18 at 06:00 Cefepime HCl 50 ml @ 100 mls/hr Q12 IVPB Last administered on 08/20/18at 08:12; Admin Dose 100 MLS/HR; Start 08/20/18 at 07:30 Vancomycin HCl 1.5 gm/Sodium Chloride 250 ml @ 83.333 mls/ hr Q12H IVPB Last administered on 08/20/18at 20:02; Admin Dose 83.333 MLS/HR; Start 08/20/18 at 20:00 NASRA PERAZA DPSimi Aug 20, 2018 20:13
[2018-08-21] MEDS: CEFEPIME 1GM/50 ML (PMX) 50 ML IVPB SCH (00:59)
[2018-08-21 01:36] VITALS: BP 121/80; PULSE 96; RESP 20
[2018-08-21 07:47] VITALS: BP 126/78; PULSE 92; RESP 22
[2018-08-21] MEDS: VANCOMYCIN HCL 1.5 GM in SOD CHLORIDE 0.9% 250 ML IVPB SCH ×2 (07:59→20:29)
[2018-08-21] MEDS: NICOTINE (21 MG/24 HR) PATCH TRANSDERM SCH (08:00)
[2018-08-21] MEDS: FUROSEMIDE 20 MG TAB PO SCH (08:00)
[2018-08-21] MEDS: ENOXAPARIN 40 MG/0.4 ML SYG SC SCH (08:02)
--- NOTE | 2018-08-21 11:37 | CONS ---
Assessment/Plan Assessment/Plan Assessment/Plan (Daily) RLE cellulitis RLE venous ulcer RLE edema RLE abscess Pain in limb R COPD DAMON Morbid obesity. Plan Wound cultures pending. Reviewed MRI and X-ray results and appreciate findings of the abscess. Patient to be NPO after midnight tonight and consent to be prepared. Patient planned for OR incision and drainage, excisional debridement and possible application of wound VAC tomorrow. Continue with IV abx. Nursing recommendations provided for daily dressing changes. Elevate and offload right lower extremity with pillows. Consultation Date/Type/Reason Admit Date/Time Aug 20, 2018 at 01:56 Initial Consult Date Date/Time of Note DATE: 08/21/18 TIME: 11:37 24 HR Interval Summary Free Text/Dictation No acute events overnight. Exam/Review of Systems Exam Vitals Vital Signs Date Temp Pulse Resp B/P (MAP) Pulse Ox O2 O2 Flow FiO2 Time Delivery Rate 08/21/18 98.2 92 22 126/78 99 07:47 (94) 08/20/18 Nasal 2.0 03:29 Cannula Intake and Output 08/20/18 08/20/18 08/21/18 1515:00 23:00 07:00 IntakeIntake Total 50 ml 1700 ml 300 ml OutputOutput Total 3 ml BalanceBalance 50 ml 1697 ml 300 ml Exam DP/PT pulses palpable 2+/4 Protective sensations intact pedal hairs appreciated Diffuse erythema to right lower leg with increased 2+ pitting edema compared to contralateral limb Right anterior ulcer fibrogranular with fluctuance noted 3 x 3cm which protrudes outward. No tunneling or probing appreciated. Muscle strength 5/5 in all compartments of the foot No pain with calf squeeze X-ray Tib/fib IMPRESSION: 1. No plain film evidence of osteomyelitis. 2. Soft tissue ulceration and swelling anteriorly. MRI RLE IMPRESSION: Extensive, anterolateral predominant soft tissue edema with more focal appearing fluid collection suggesting abscess superimposed on cellulitis. No evidence of osteomyelitis. Results Result Diagram: 08/21/18 0710 08/21/18 0710 Results 24hrs Laboratory Tests Test 08/21/18 07:10 White Blood Count 5.4 # Red Blood Count 5.14 Hemoglobin 13.9 L Hematocrit 44.7 Mean Corpuscular Volume 87.0 Mean Corpuscular Hemoglobin 27.0 L Mean Corpuscular Hemoglobin Concent 31.1 L Red Cell Distribution Width 16.3 H Platelet Count 193 Mean Platelet Volume 11.0 H Immature Granulocytes % 0.600 H Neutrophils % 67.1 Lymphocytes % 20.8 Monocytes % 9.4 Eosinophils % 1.7 Basophils % 0.4 Nucleated Red Blood Cells % 0.0 Immature Granulocytes # 0.030 Neutrophils # 3.6 Lymphocytes # 1.1 Monocytes # 0.5 Eosinophils # 0.1 Basophils # 0.0 Nucleated Red Blood Cells # 0.0 Erythrocyte Sedimentation Rate 24 H Sodium Level 134 L Potassium Level 4.2 Chloride Level 101 Carbon Dioxide Level 30 Anion Gap 3 L Blood Urea Nitrogen 14 Creatinine 0.83 Est Glomerular Filtrat Rate mL/min > 60 Glucose Level 85 Calcium Level 9.0 Phosphorus Level 4.4 Magnesium Level 2.0 Total Bilirubin 0.4 Direct Bilirubin 0.00 Indirect Bilirubin 0.4 Aspartate Amino Transf (AST/SGOT) 20 Alanine Aminotransferase (ALT/SGPT) 45 Alkaline Phosphatase 52 C-Reactive Protein 3.0 H Total Protein 7.5 Albumin 3.6 Globulin 3.90 H Albumin/Globulin Ratio 0.92 Medications Medication Current Medications IV Flush (NS 3 ml) 3 ml PER PROTOCOL IV ; Start 08/20/18 at 06:00 Ondansetron HCl (Zofran Inj) 4 mg Q6H PRN IV NAUSEA/VOMITING; Start 08/20/18 at 06:00 Acetaminophen (Tylenol Tab) 650 mg Q6H PRN PO .PAIN 1-3 OR TEMP; Start 08/20/18 at 06:00 Acetaminophen/ Hydrocodone Bitart ([place] (5/325)) 1 tab Q6H PRN PO .MOD PAIN 4- 6; Start 08/20/18 at 06:00 Acetaminophen/ Hydrocodone Bitart ([place] (5/325)) 2 tab Q6H PRN PO .SEVERE PAIN 7-10; Start 08/20/18 at 06:00 Enoxaparin Sodium (Lovenox) 40 mg DAILY SC Last administered on 08/21/18at 08:02; Admin Dose 40 MG; Start 08/20/18 at 09:00 Albuterol/ Ipratropium (Duoneb) 3 ml Q2H RESP THERAPY PRN HHN SHORTNESS OF BREATH; Start 08/20/18 at 06:00 Furosemide (Lasix) 20 mg DAILY PO Last administered on 08/21/18at 08:00; Admin Dose 20 MG; Start 08/20/18 at 09:00 Nicotine (Nicoderm 21 Mg/ 24hr) 1 patch DAILY TRANSDERM Last administered on 08/21/18at 08:00; Admin Dose 1 PATCH; Start 08/20/18 at 09:00 Vancomycin HCl (Vanco Iv Per Pharmacy) VANCOMYCIN PER PHARMACY PER PROTOCOL XX ; Start 08/20/18 at 06:00 Cefepime HCl 50 ml @ 100 mls/hr Q12 IVPB Last administered on 08/21/18at 00:59; Admin Dose 100 MLS/HR; Start 08/20/18 at 07:30 Vancomycin HCl 1.5 gm/Sodium Chloride 250 ml @ 83.333 mls/ hr Q12H IVPB Last administered on 08/21/18at 07:59; Admin Dose 83.333 MLS/HR; Start 08/20/18 at 20:00 NASRA PERAZA DPM Aug 21, 2018 11:37
--- NOTE | 2018-08-21 12:43 | PREAC ---
Date/Time of Note Date/Time of Note DATE: 08/21/18 TIME: 12:42 Anesthesia Eval and Record Evaluation Time Pre-Procedure Interview DATE: 08/21/18 TIME: 12:42 Age 38 Sex male NPO: 8 hrs Preoperative diagnosis RIGHT LOWER EXTREMITY abscess. Planned procedure RIGHT LOWER EXTREMITY I & D W/ EXCISIONAL Past Medical History Past Medical History: Includes Pulm: Smoking Hx, COPD, Sleep Apnea GI: Morbid obesity Surgery & Anesthesia Issues No known issue Meds Anticoagulation: No Beta Juan Alberto within 24 hr: No Reason Beta Juan Alberto not given: Pt. not on B-Juan Alberto Active Scripts Furosemide (Lasix) 20 Mg Tab, 20 MG PO DAILY, #30 TAB 3 Refills Prov:RAHI,EMILI S. 08/16/18 Levalbuterol* (Xopenex* HFA) 15 Gm Inha, 2 PUFFS INH Q4H PRN for WHEEZING AND SOB, #1 INHALER 7 Refills Prov:RAHI,EMILI S. 08/16/18 Nicotine* (Nicotine* Patch) 21 mg/day Patch, 1 PATCH TRANSDERM DAILY, #30 BOTTLE 2 Refills Prov:RAHI,EMILI S. 08/16/18 Current Medications IV Flush (NS 3 ml) 3 ml PER PROTOCOL IV ; Start 08/20/18 at 06:00 Ondansetron HCl (Zofran Inj) 4 mg Q6H PRN IV NAUSEA/VOMITING; Start 08/20/18 at 06:00 Acetaminophen (Tylenol Tab) 650 mg Q6H PRN PO .PAIN 1-3 OR TEMP; Start 08/20/18 at 06:00 Acetaminophen/ Hydrocodone Bitart ([place] (5/325)) 1 tab Q6H PRN PO .MOD PAIN 4- 6; Start 08/20/18 at 06:00 Acetaminophen/ Hydrocodone Bitart ([place] (5/325)) 2 tab Q6H PRN PO .SEVERE PAIN 7-10; Start 08/20/18 at 06:00 Enoxaparin Sodium (Lovenox) 40 mg DAILY SC Last administered on 08/21/18at 08:02; Admin Dose 40 MG; Start 08/20/18 at 09:00 Albuterol/ Ipratropium (Duoneb) 3 ml Q2H RESP THERAPY PRN HHN SHORTNESS OF BREATH; Start 08/20/18 at 06:00 Furosemide (Lasix) 20 mg DAILY PO Last administered on 08/21/18at 08:00; Admin Dose 20 MG; Start 08/20/18 at 09:00 Nicotine (Nicoderm 21 Mg/ 24hr) 1 patch DAILY TRANSDERM Last administered on 08/21/18at 08:00; Admin Dose 1 PATCH; Start 08/20/18 at 09:00 Vancomycin HCl (Vanco Iv Per Pharmacy) VANCOMYCIN PER PHARMACY PER PROTOCOL XX ; Start 08/20/18 at 06:00 Vancomycin HCl 1.5 gm/Sodium Chloride 250 ml @ 83.333 mls/ hr Q12H IVPB Last administered on 08/21/18at 07:59; Admin Dose 83.333 MLS/HR; Start 08/20/18 at 20:00 Miscellaneous Information (*Rx Drug Level Order Reminder*) VANCOMYCIN TROUGH AT 1900 ONCE ONCE XX ; Start 08/21/18 at 19:00; Stop 08/21/18 at 19:01 Cefepime HCl 50 ml @ 100 mls/hr Q12 IVPB ; Start 08/21/18 at 21:00 Meds reviewed: Yes Allergies Coded Allergies: No Known Allergy (Unverified , 08/08/18) Allergies Reviewed: Yes Labs/Studies Labs Reviewed: Reviewed by anesthesiologist Result Diagram: 08/21/18 0710 08/21/18 0710 Laboratory Tests 08/21/18 07:10 test: N/A Pre-procedure Exam Last vitals Vital Signs Date Temp Pulse Resp B/P (MAP) Pulse Ox O2 O2 Flow FiO2 Time Delivery Rate 08/21/18 98.2 92 22 126/78 99 07:47 (94) 08/20/18 Nasal 2.0 03:29 Cannula Airway: Adequate mouth opening Mallampati: Mallampati II Teeth: Normal Lung: Normal Heart: Normal ASA Physical Status ASA physical status: 4 Emergency: None Planned Anesthetic General/MAC: ETT Pre-operative Attestations Prior to commencing anesthesia and surgery, the patient was re-evaluated, there was verification of: *The patient's identity *The results of appropriate recent lab work and preoperative vital signs *The above evaluation not changing prior to induction *Anesthetic plan, risk benefits, alternative and complications discussed with patient/family; questions answered; patient/family understands, accepts and wishes to proceed. DOREEN PINK Aug 21, 2018 12:43
[2018-08-21 14:29] VITALS: BP 144/89; PULSE 101; RESP 20
--- NOTE | 2018-08-21 15:55 | CONS ---
DATE OF ADMISSION: 08/20/2018 DATE OF CONSULTATION: 08/21/2018 TYPE OF CONSULTATION: Infectious disease. REASON FOR CONSULTATION: Antibiotic management. HISTORY OF PRESENT ILLNESS: Janes Carlisle is a 38-year-old male who was brought in with right lower l eg abscess is being seen for antibiotic management. The patient has right lower extremity cellulitis . He was discharged home on antibiotics. He said that over the past 2 days, he has had cellulitis w hich has been progressively worse. His past problems include: 1. Respiratory failure. 2. Sleep apnea. 3. Morbid obesity. On admission on 08/20/2018, his white count was 7.8, H and H of 14.6 and 46.3, platelet count was 213 ,000. BUN and creatinine is 22/1.16. He has 63% neutrophils. As noted, the patient comes in with r ight lower extremity cellulitis. He was seen by Dr. Tan on 08/20/2018 who noted right lower ex tremity cellulitis, right lower extremity venous ulcer edema, suspected abscess, pain in the limb, CO PD, morbid obesity, DAMON. Wound culture was ordered along with x-ray and MRI for suspected abscess. He would benefit from OR incision and drainage and will likely need staged debridement with possible wound VAC application. On 08/21/2018, wound culture is pending, MRI and x-ray results to appreciate findings of an abscess. The patient will be n.p.o. after midnight, consent to be operated on for inc ision and drainage, excisional debridement, possible application of wound VAC tomorrow. PAST MEDICAL HISTORY: As outlined. FAMILY HISTORY: Noncontributory. SOCIAL HISTORY: Does not smoke, drink or abuse drugs. ALLERGIES: NONE TO PENICILLIN, SULFA OR FOODS. MEDICATIONS: Per chart. REVIEW OF SYSTEMS: As per HPI. PHYSICAL EXAMINATION: GENERAL: The patient is well-developed, well-nourished male, awake, responsive, in no acute distress . VITAL SIGNS: Stable. He is afebrile. SKIN: Without generalized rash. HEENT: Within normal limits. NECK: Supple. LYMPH NODES: None palpable. CHEST: Decreased breath sounds at the bases. HEART: Without murmur or gallop. ABDOMEN: Soft, nontender without organosplenomegaly or masses. EXTREMITIES: He has diffuse erythema to the right lower leg with increased 2+ pitting edema. He has 2+/4 dorsalis pedis and posterior tibial pulses, right anterior ulcer with fibro-granular material w ith fluctuance noted, 3 x 3 cm which protrudes outward. No tunneling appreciated. DIAGNOSTIC DATA: The MRI showed extensive anterolateral prominent soft tissue edema with more focal a ppearing fluid collection suggesting abscess superimposed on cellulitis. No evidence of osteomyeliti s. IMPRESSION AND PLAN: The patient is currently on vancomycin and cefepime and will be scheduled for s urgery in the a.m. I concur with current regimen. Blood cultures are negative. His urine was conta minated with mixed gram-positive organisms. I will dictate my findings to the hospitalist and to Dr. Tan. Dictated By: LIZ ABBOTT MD, JD/NTS Conf#: [id number] DID#: [id number] CC: DAVID GONZALEZ MD;*EndCC*
--- NOTE | 2018-08-21 16:18 | PN ---
Date/Time of Note Date/Time of Note DATE: 08/21/18 TIME: 16:15 Assessment/Plan VTE Prophylaxis Risk score (from Nsg)>0 risk: 2 SCD applied (from Ns): No SCD contraindicated: other Pharmacological prophylaxis: LMWH Lines/Catheters IV Catheter Type (from Nrsg): Peripheral IV Assessment/Plan Hospital Course SUBJECTIVE: Denies any pain. OBJECTIVE: Physical Exam General: Morbidly obese 38 year-old year-old male lying in bed in no apparent distress. HEENT: Normocephalic, atraumatic. Eyes: Anicteric sclerae, conjunctivae clear. ENT: Nasal septum midline, oral mucosa moist. Neck supple, no JVD noticed. Respiratory: Bilaterally clear breath sounds. No use of accessory muscles of respiration. No adventitious breath sounds. Cardiovascular: S1, S2 heard. Regular rate and rhythm Abdomen: Soft, nontender, and nondistended. Bowel sounds positive in all 4 quadrants. Genitourinary: Deferred. Extremities: No cyanosis, no clubbing. Bilateral lower extremity venous stasis changes. RLE dressing. Neurologic: Cranial nerves II through XII grossly intact. The patient is awake, alert, and oriented. Labs & Vitals per chart ASSESSMENT & PLAN This is a 38-year-old male with comorbidities including morbid obesity, COPD, obstructive sleep apnea, prediabetes, and nicotine use. The patient was recently evaluated at [facility] and was discharged home on 08/16/2018. At that time, the patient had right lower extremity pain and the patient underwent a right lower extremity CT scan that was showing extensive anterolateral subcutaneous infiltration/fluid collection superficial to the muscles and patella. The patient came back to the ER on 08/20/2018 with chief complaint of a right adams blister that was draining "pus." The patient was admitted to inpatient setting for further treatment and evaluation. 1. Right lower extremity venous stasis with underlying cellulitis and possible underlying abscess. -Continue antimicrobials including coverage for MRSA. -LLE MRI showing extensive, anterolateral predominant soft tissue edema with more focal appearing fluid collection suggesting abscess superimposed on cellulitis. -Being followed by podiatry. -Plan for I&D. 2. Obstructive sleep apnea. - Nocturnal CPAP. 3. Nicotine use. -Cessation advised. 4. Morbid obesity. -BMI more than 53 kg/m. -Weight reduction advised. 5. Prediabetes. -Monitor glycemic trends. 6. Fluids, electrolytes, and nutrition. -Low-cholesterol diet. 7. DVT prophylaxis. -Subcutaneous Lovenox. 8. Plan. -Continue antimicrobials as per ID. -Await podiatry intervention. The patient was seen in collaboration with Dr. Rosas. Result Diagram: 08/21/18 0710 08/21/18 0710 Results 24hrs Laboratory Tests Test 08/21/18 07:10 White Blood Count 5.4 # Red Blood Count 5.14 Hemoglobin 13.9 L Hematocrit 44.7 Mean Corpuscular Volume 87.0 Mean Corpuscular Hemoglobin 27.0 L Mean Corpuscular Hemoglobin Concent 31.1 L Red Cell Distribution Width 16.3 H Platelet Count 193 Mean Platelet Volume 11.0 H Immature Granulocytes % 0.600 H Neutrophils % 67.1 Lymphocytes % 20.8 Monocytes % 9.4 Eosinophils % 1.7 Basophils % 0.4 Nucleated Red Blood Cells % 0.0 Immature Granulocytes # 0.030 Neutrophils # 3.6 Lymphocytes # 1.1 Monocytes # 0.5 Eosinophils # 0.1 Basophils # 0.0 Nucleated Red Blood Cells # 0.0 Erythrocyte Sedimentation Rate 24 H Sodium Level 134 L Potassium Level 4.2 Chloride Level 101 Carbon Dioxide Level 30 Anion Gap 3 L Blood Urea Nitrogen 14 Creatinine 0.83 Est Glomerular Filtrat Rate mL/min > 60 Glucose Level 85 Calcium Level 9.0 Phosphorus Level 4.4 Magnesium Level 2.0 Total Bilirubin 0.4 Direct Bilirubin 0.00 Indirect Bilirubin 0.4 Aspartate Amino Transf (AST/SGOT) 20 Alanine Aminotransferase (ALT/SGPT) 45 Alkaline Phosphatase 52 C-Reactive Protein 3.0 H Total Protein 7.5 Albumin 3.6 Globulin 3.90 H Albumin/Globulin Ratio 0.92 Exam/Review of Systems Exam Vitals Vital Signs Date Temp Pulse Resp B/P (MAP) Pulse Ox O2 O2 Flow FiO2 Time Delivery Rate 08/21/18 97.2 101 20 144/89 96 14:29 (107) 08/20/18 Nasal 2.0 03:29 Cannula Intake and Output 08/20/18 08/20/18 08/21/18 1515:00 23:00 07:00 IntakeIntake Total 50 ml 1700 ml 300 ml OutputOutput Total 3 ml BalanceBalance 50 ml 1697 ml 300 ml Results Results 24hrs Laboratory Tests Test 08/21/18 07:10 White Blood Count 5.4 # Red Blood Count 5.14 Hemoglobin 13.9 L Hematocrit 44.7 Mean Corpuscular Volume 87.0 Mean Corpuscular Hemoglobin 27.0 L Mean Corpuscular Hemoglobin Concent 31.1 L Red Cell Distribution Width 16.3 H Platelet Count 193 Mean Platelet Volume 11.0 H Immature Granulocytes % 0.600 H Neutrophils % 67.1 Lymphocytes % 20.8 Monocytes % 9.4 Eosinophils % 1.7 Basophils % 0.4 Nucleated Red Blood Cells % 0.0 Immature Granulocytes # 0.030 Neutrophils # 3.6 Lymphocytes # 1.1 Monocytes # 0.5 Eosinophils # 0.1 Basophils # 0.0 Nucleated Red Blood Cells # 0.0 Erythrocyte Sedimentation Rate 24 H Sodium Level 134 L Potassium Level 4.2 Chloride Level 101 Carbon Dioxide Level 30 Anion Gap 3 L Blood Urea Nitrogen 14 Creatinine 0.83 Est Glomerular Filtrat Rate mL/min > 60 Glucose Level 85 Calcium Level 9.0 Phosphorus Level 4.4 Magnesium Level 2.0 Total Bilirubin 0.4 Direct Bilirubin 0.00 Indirect Bilirubin 0.4 Aspartate Amino Transf (AST/SGOT) 20 Alanine Aminotransferase (ALT/SGPT) 45 Alkaline Phosphatase 52 C-Reactive Protein 3.0 H Total Protein 7.5 Albumin 3.6 Globulin 3.90 H Albumin/Globulin Ratio 0.92 Medications Medication Current Medications IV Flush (NS 3 ml) 3 ml PER PROTOCOL IV ; Start 08/20/18 at 06:00 Ondansetron HCl (Zofran Inj) 4 mg Q6H PRN IV NAUSEA/VOMITING; Start 08/20/18 at 06:00 Acetaminophen (Tylenol Tab) 650 mg Q6H PRN PO .PAIN 1-3 OR TEMP; Start 08/20/18 at 06:00 Acetaminophen/ Hydrocodone Bitart ([place] (5/325)) 1 tab Q6H PRN PO .MOD PAIN 4- 6; Start 08/20/18 at 06:00 Acetaminophen/ Hydrocodone Bitart ([place] (5/325)) 2 tab Q6H PRN PO .SEVERE PAIN 7-10; Start 08/20/18 at 06:00 Enoxaparin Sodium (Lovenox) 40 mg DAILY SC Last administered on 08/21/18at 08:02; Admin Dose 40 MG; Start 08/20/18 at 09:00 Albuterol/ Ipratropium (Duoneb) 3 ml Q2H RESP THERAPY PRN HHN SHORTNESS OF BREATH; Start 08/20/18 at 06:00 Furosemide (Lasix) 20 mg DAILY PO Last administered on 08/21/18at 08:00; Admin D ose 20 MG; Start 08/20/18 at 09:00 Nicotine (Nicoderm 21 Mg/ 24hr) 1 patch DAILY TRANSDERM Last administered on 08/21/18at 08:00; Admin Dose 1 PATCH; Start 08/20/18 at 09:00 Vancomycin HCl (Vanco Iv Per Pharmacy) VANCOMYCIN PER PHARMACY PER PROTOCOL XX ; Start 08/20/18 at 06:00 Vancomycin HCl 1.5 gm/Sodium Chloride 250 ml @ 83.333 mls/ hr Q12H IVPB Last administered on 08/21/18at 07:59; Admin Dose 83.333 MLS/HR; Start 08/20/18 at 20:00 Miscellaneous Information (*Rx Drug Level Order Reminder*) VANCOMYCIN TROUGH AT 1900 ONCE ONCE XX ; Start 08/21/18 at 19:00; Stop 08/21/18 at 19:01 Cefepime HCl 50 ml @ 100 mls/hr Q12 IVPB ; Start 08/21/18 at 21:00 BHARGAV PUENTE NP Aug 21, 2018 16:18
[2018-08-21 19:55] VITALS: BP 141/96; PULSE 96; RESP 20
[2018-08-21] MEDS: CEFEPIME 2GM/50 ML IVPB SCH (23:17)
[2018-08-22] VITALS (15 sets, daily range): BP systolic 101–160; BP diastolic 59–87; PULSE 91–107; RESP 10–22
[2018-08-22] MEDS: VANCOMYCIN HCL 1.5 GM in SOD CHLORIDE 0.9% 250 ML IVPB SCH ×3 (05:47→23:01)
[2018-08-22] MEDS ORDERED: SEVOFLURANE 15 MIN ONE (07:00)
[2018-08-22] MEDS ORDERED: METOPROLOL 5 MG INJ ONE (07:00)
--- NOTE | 2018-08-22 07:09 | PN ---
Date/Time of Note Date/Time of Note DATE: 08/22/18 TIME: 07:09 Assessment/Plan VTE Prophylaxis Risk score (from Nsg)>0 risk: 2 SCD applied (from Ns): No SCD contraindicated: other Pharmacological prophylaxis: LMWH Lines/Catheters IV Catheter Type (from Nrs): Peripheral IV Assessment/Plan Hospital Course SUBJECTIVE: Denies any pain. OBJECTIVE: Physical Exam General: Morbidly obese 38 year-old year-old male lying in bed in no apparent distress. HEENT: Normocephalic, atraumatic. Eyes: Anicteric sclerae, conjunctivae clear. ENT: Nasal septum midline, oral mucosa moist. Neck supple, no JVD noticed. Respiratory: Bilaterally clear breath sounds. No use of accessory muscles of respiration. No adventitious breath sounds. Cardiovascular: S1, S2 heard. Regular rate and rhythm Abdomen: Soft, nontender, and nondistended. Bowel sounds positive in all 4 quadrants. Genitourinary: Deferred. Extremities: No cyanosis, no clubbing. Bilateral lower extremity venous stasis changes. RLE dressing. Neurologic: Cranial nerves II through XII grossly intact. The patient is awake, alert, and oriented. Labs & Vitals per chart ASSESSMENT & PLAN This is a 38-year-old male with comorbidities including morbid obesity, COPD, obstructive sleep apnea, prediabetes, and nicotine use. The patient was recently evaluated at [facility] and was discharged home on 08/16/2018. At that time, the patient had right lower extremity pain and the patient underwent a right lower extremity CT scan that was showing extensive anterolateral subcutaneous infiltration/fluid collection superficial to the muscles and patella. The patient came back to the ER on 08/20/2018 with chief complaint of a right adams blister that was draining "pus." The patient was admitted to inpatient setting for further treatment and evaluation. 1. Right lower extremity venous stasis with underlying cellulitis and possible underlying abscess. -Continue antimicrobials including coverage for MRSA. -LLE MRI showing extensive, anterolateral predominant soft tissue edema with more focal appearing fluid collection suggesting abscess superimposed on cellulitis. -Being followed by podiatry. -Plan for I&D. 2. Obstructive sleep apnea. - Nocturnal CPAP. 3. Nicotine use. -Cessation advised. 4. Morbid obesity. -BMI more than 53 kg/m. -Weight reduction advised. 5. Prediabetes. -Monitor glycemic trends. 6. Fluids, electrolytes, and nutrition. -Low-cholesterol diet. 7. DVT prophylaxis. -Subcutaneous Lovenox. 8. Plan. -Continue antimicrobials as per ID. -Await podiatry intervention. The patient was seen in collaboration with Dr. Rosas. Result Diagram: 08/22/18 0608 08/21/18 0710 Results 24hrs Laboratory Tests Test 08/21/18 07:10 08/21/18 19:10 08/22/18 06:08 White Blood Count 5.4 # 4.8 Red Blood Count 5.14 5.06 Hemoglobin 13.9 L 13.7 L Hematocrit 44.7 43.9 Mean Corpuscular Volume 87.0 86.8 Mean Corpuscular Hemoglobin 27.0 L 27.1 L Mean Corpuscular Hemoglobin Concent 31.1 L 31.2 L Red Cell Distribution Width 16.3 H 16.3 H Platelet Count 193 176 Mean Platelet Volume 11.0 H 11.5 H Immature Granulocytes % 0.600 H 0.600 H Neutrophils % 67.1 60.2 Lymphocytes % 20.8 26.5 Monocytes % 9.4 10.6 Eosinophils % 1.7 1.9 Basophils % 0.4 0.2 Nucleated Red Blood Cells % 0.0 0.0 Immature Granulocytes # 0.030 0.030 Neutrophils # 3.6 2.9 Lymphocytes # 1.1 1.3 Monocytes # 0.5 0.5 Eosinophils # 0.1 0.1 Basophils # 0.0 0.0 Nucleated Red Blood Cells # 0.0 0.0 Erythrocyte Sedimentation Rate 24 H Sodium Level 134 L Potassium Level 4.2 Chloride Level 101 Carbon Dioxide Level 30 Anion Gap 3 L Blood Urea Nitrogen 14 Creatinine 0.83 Est Glomerular Filtrat Rate mL/min > 60 Glucose Level 85 Calcium Level 9.0 Phosphorus Level 4.4 Magnesium Level 2.0 Total Bilirubin 0.4 Direct Bilirubin 0.00 Indirect Bilirubin 0.4 Aspartate Amino Transf (AST/SGOT) 20 Alanine Aminotransferase (ALT/SGPT) 45 Alkaline Phosphatase 52 C-Reactive Protein 3.0 H Total Protein 7.5 Albumin 3.6 Globulin 3.90 H Albumin/Globulin Ratio 0.92 Vancomycin Level Trough 9.0 L Exam/Review of Systems Exam Vitals Vital Signs Date Temp Pulse Resp B/P (MAP) Pulse Ox O2 O2 Flow FiO2 Time Delivery Rate 08/22/18 98.1 91 22 134/84 95 01:52 (101) 08/20/18 Nasal 2.0 03:29 Cannula Intake and Output 08/21/18 08/21/18 08/22/18 1515:00 23:00 07:00 IntakeIntake Total 1210 ml 550 ml BalanceBalance 1210 ml 550 ml Results Results 24hrs Laboratory Tests Test 08/21/18 07:10 08/21/18 19:10 08/22/18 06:08 White Blood Count 5.4 # 4.8 Red Blood Count 5.14 5.06 Hemoglobin 13.9 L 13.7 L Hematocrit 44.7 43.9 Mean Corpuscular Volume 87.0 86.8 Mean Corpuscular Hemoglobin 27.0 L 27.1 L Mean Corpuscular Hemoglobin Concent 31.1 L 31.2 L Red Cell Distribution Width 16.3 H 16.3 H Platelet Count 193 176 Mean Platelet Volume 11.0 H 11.5 H Immature Granulocytes % 0.600 H 0.600 H Neutrophils % 67.1 60.2 Lymphocytes % 20.8 26.5 Monocytes % 9.4 10.6 Eosinophils % 1.7 1.9 Basophils % 0.4 0.2 Nucleated Red Blood Cells % 0.0 0.0 Immature Granulocytes # 0.030 0.030 Neutrophils # 3.6 2.9 Lymphocytes # 1.1 1.3 Monocytes # 0.5 0.5 Eosinophils # 0.1 0.1 Basophils # 0.0 0.0 Nucleated Red Blood Cells # 0.0 0.0 Erythrocyte Sedimentation Rate 24 H Sodium Level 134 L Potassium Level 4.2 Chloride Level 101 Carbon Dioxide Level 30 Anion Gap 3 L Blood Urea Nitrogen 14 Creatinine 0.83 Est Glomerular Filtrat Rate mL/min > 60 Glucose Level 85 Calcium Level 9.0 Phosphorus Level 4.4 Magnesium Level 2.0 Total Bilirubin 0.4 Direct Bilirubin 0.00 Indirect Bilirubin 0.4 Aspartate Amino Transf (AST/SGOT) 20 Alanine Aminotransferase (ALT/SGPT) 45 Alkaline Phosphatase 52 C-Reactive Protein 3.0 H Total Protein 7.5 Albumin 3.6 Globulin 3.90 H Albumin/Globulin Ratio 0.92 Vancomycin Level Trough 9.0 L Medications Medication Current Medications IV Flush (NS 3 ml) 3 ml PER PROTOCOL IV ; Start 08/20/18 at 06:00 Ondansetron HCl (Zofran Inj) 4 mg Q6H PRN IV NAUSEA/VOMITING; Start 08/20/18 at 06:00 Acetaminophen (Tylenol Tab) 650 mg Q6H PRN PO .PAIN 1-3 OR TEMP; Start 08/20/18 at 06:00 Acetaminophen/ Hydrocodone Bitart ([place] (5/325)) 1 tab Q6H PRN PO .MOD PAIN 4- 6; Start 08/20/18 at 06:00 Acetaminophen/ Hydrocodone Bitart ([place] (5/325)) 2 tab Q6H PRN PO .SEVERE PAIN 7-10; Start 08/20/18 at 06:00 Enoxaparin Sodium (Lovenox) 40 mg DAILY SC Last administered on 08/21/18at 08:02; Admin Dose 40 MG; Start 08/20/18 at 09:00 Albuterol/ Ipratropium (Duoneb) 3 ml Q2H RESP THERAPY PRN HHN SHORTNESS OF BREATH; Start 08/20/18 at 06:00 Furosemide (Lasix) 20 mg DAILY PO Last administered on 08/21/18at 08:00; Admin Dose 20 MG; Start 08/20/18 at 09:00 Nicotine (Nicoderm 21 Mg/ 24hr) 1 patch DAILY TRANSDERM Last administered on 08/21/18at 08:00; Admin Dose 1 PATCH; Start 08/20/18 at 09:00 Vancomycin HCl (Vanco Iv Per Pharmacy) VANCOMYCIN PER PHARMACY PER PROTOCOL XX ; Start 08/20/18 at 06:00 Cefepime HCl 50 ml @ 100 mls/hr Q12 IVPB Last administered on 08/21/18at 23:17; Admin Dose 100 MLS/HR; Start 08/21/18 at 21:00 Vancomycin HCl 1.5 gm/Sodium Chloride 250 ml @ 83.333 mls/ hr Q8H IVPB Last administered on 08/22/18at 05:47; Admin Dose 83.333 MLS/HR; Start 08/22/18 at 06:00 BHARGAV PUENTE NP Aug 22, 2018 07:09
[2018-08-22] MEDS: FUROSEMIDE 20 MG TAB PO SCH (09:00)
[2018-08-22] MEDS: ENOXAPARIN 40 MG/0.4 ML SYG SC SCH (09:00)
[2018-08-22] MEDS: NICOTINE (21 MG/24 HR) PATCH TRANSDERM SCH (11:07)
[2018-08-22] MEDS: CEFEPIME 2GM/50 ML IVPB SCH ×2 (11:07→20:41)
--- NOTE | 2018-08-22 16:10 | CONS ---
Assessment/Plan Assessment/Plan Hospital Course (Demo Recall) No acute events overnight patient is alert looks comfortable denies pain. No fevers overnight. WBC 4.8 no shift no bands. BUN 18 creatinine 0.85. Microbiology: Blood cultures and wound culture preliminary negative Antimicrobials: Vancomycin, cefepime MRI of the right lower extremity revealed no osteomyelitis questionable abscess superimposed on cellulitis Physical examination: Morbidly obese well-developed middle-aged man who is alert in no distress. Head atraumatic normocephalic sclera nonicteric. Neck is supple. Chest rise symmetrical breath sounds diminished bases. Heart: S1- S2. Abdomen obese soft bowel sounds hypoactive. Extremities with right lower extremity edema erythema with dressing present below knee all the way down to the foot Assessment: 1. Right lower extremity cellulitis with abscess 2. Morbid obesity Plan: Patient remains stable, on appropriate antibiotic regimen plan for debridement today consider ultrasound to rule out DVT Consultation Date/Type/Reason Admit Date/Time Aug 20, 2018 at 01:56 Initial Consult Date Type of Consult id Date/Time of Note DATE: 08/22/18 TIME: 16:10 Exam/Review of Systems Exam Vitals Vital Signs Date Temp Pulse Resp B/P (MAP) Pulse Ox O2 O2 Flow FiO2 Time Delivery Rate 08/22/18 98.0 91 18 107/59 96 Nasal 13:34 (75) Cannula 08/20/18 2.0 03:29 Intake and Output 08/21/18 08/21/18 08/22/18 1515:00 23:00 07:00 IntakeIntake Total 1210 ml 550 ml BalanceBalance 1210 ml 550 ml Results Result Diagram: 08/22/18 0608 08/22/18 0608 Results 24hrs Laboratory Tests Test 08/21/18 19:10 08/22/18 06:08 Vancomycin Level Trough 9.0 L White Blood Count 4.8 Red Blood Count 5.06 Hemoglobin 13.7 L Hematocrit 43.9 Mean Corpuscular Volume 86.8 Mean Corpuscular Hemoglobin 27.1 L Mean Corpuscular Hemoglobin Concent 31.2 L Red Cell Distribution Width 16.3 H Platelet Count 176 Mean Platelet Volume 11.5 H Immature Granulocytes % 0.600 H Neutrophils % 60.2 Lymphocytes % 26.5 Monocytes % 10.6 Eosinophils % 1.9 Basophils % 0.2 Nucleated Red Blood Cells % 0.0 Immature Granulocytes # 0.030 Neutrophils # 2.9 Lymphocytes # 1.3 Monocytes # 0.5 Eosinophils # 0.1 Basophils # 0.0 Nucleated Red Blood Cells # 0.0 Sodium Level 141 Potassium Level 4.2 Chloride Level 102 Carbon Dioxide Level 28 Anion Gap 11 # Blood Urea Nitrogen 18 Creatinine 0.85 Est Glomerular Filtrat Rate mL/min > 60 Glucose Level 87 Calcium Level 9.1 Phosphorus Level 5.6 H Magnesium Level 2.0 Medications Medication Current Medications IV Flush (NS 3 ml) 3 ml PER PROTOCOL IV ; Start 08/20/18 at 06:00 Ondansetron HCl (Zofran Inj) 4 mg Q6H PRN IV NAUSEA/VOMITING; Start 08/20/18 at 06:00 Acetaminophen (Tylenol Tab) 650 mg Q6H PRN PO .PAIN 1-3 OR TEMP; Start 08/20/18 at 06:00 Acetaminophen/ Hydrocodone Bitart ([place] (5/325)) 1 tab Q6H PRN PO .MOD PAIN 4- 6; Start 08/20/18 at 06:00 Acetaminophen/ Hydrocodone Bitart ([place] (5/325)) 2 tab Q6H PRN PO .SEVERE PAIN 7-10; Start 08/20/18 at 06:00 Enoxaparin Sodium (Lovenox) 40 mg DAILY SC Last administered on 08/21/18at 08:02; Admin Dose 40 MG; Start 08/20/18 at 09:00 Albuterol/ Ipratropium (Duoneb) 3 ml Q2H RESP THERAPY PRN HHN SHORTNESS OF BREATH; Start 08/20/18 at 06:00 Furosemide (Lasix) 20 mg DAILY PO Last administered on 08/21/18at 08:00; Admin Dose 20 MG; Start 08/20/18 at 09:00 Nicotine (Nicoderm 21 Mg/ 24hr) 1 patch DAILY TRANSDERM Last administered on 08/22/18at 11:07; Admin Dose 1 PATCH; Start 08/20/18 at 09:00 Vancomycin HCl (Vanco Iv Per Pharmacy) VANCOMYCIN PER PHARMACY PER PROTOCOL XX ; Start 08/20/18 at 06:00 Cefepime HCl 50 ml @ 100 mls/hr Q12 IVPB Last administered on 08/22/18at 11:07; Admin Dose 100 MLS/HR; Start 08/21/18 at 21:00 Vancomycin HCl 1.5 gm/Sodium Chloride 250 ml @ 83.333 mls/ hr Q8H IVPB Last administered on 08/22/18at 14:41; Admin Dose 83.333 MLS/HR; Start 08/22/18 at 06:00 Miscellaneous Information (*Rx Drug Level Order Reminder*) VANCOMYCIN TROUGH AT 2100 2100 ONCE XX ; Start 08/22/18 at 21:00; Stop 08/22/18 at 21:01 DANE WELSH NP Aug 22, 2018 16:10
[2018-08-22] MEDS ORDERED: POLYMYXIN B 500000 UNIT INJ ONE (16:54)
[2018-08-22] MEDS ORDERED: BACITRACIN 50000 UNITS INJ ONE (16:57)
--- NOTE | 2018-08-22 17:56 | HPN ---
Date/Time of Note Date/Time of Note DATE: 08/22/18 TIME: 17:56 Interval H&P Admission Note Pt. seen H&P reviewed: No system changes NASRA PERAZA DPM Aug 22, 2018 17:56
[2018-08-22] MEDS ORDERED: MIDAZOLAM 1 MG/ML 2 ML INJ ONE ×2 (18:01→18:29)
[2018-08-22] MEDS ORDERED: ROPIVACAINE 0.5 % 30 ML VIAL ONE (18:02)
[2018-08-22] MEDS ORDERED: KETAMINE (50 MG/ML) 10 ML VIAL ONE (18:29)
[2018-08-22] MEDS ORDERED: hydrALAzine 20 MG INJ ONE (18:48)
[2018-08-22] MEDS ORDERED: FENTAnyl 50 MCG/ML VIAL ONE (18:54)
--- NOTE | 2018-08-22 18:56 | SIPON ---
Date/Time of Note Date/Time of Note DATE: 08/22/18 TIME: 18:56 Operative Report Preoperative Diagnosis RLE cellulitis RLE venous ulcer RLE edema RLE abscess Pain in limb R Postoperative Diagnosis RLE cellulitis RLE venous ulcer RLE edema RLE abscess Pain in limb R Operation/Procedure Performed right lower extremity incision and drainage Right lower extremity Excisional debridement application of wound VAC Surgeon see signature line physician assistant surgery none Anesthesia: MAC Estimated blood loss: 10 - 50 ml's Transfusion Required none Specimen right leg wound culture Grafts/Implants none Complications none NASRA PERAZA DPSimi Aug 22, 2018 18:56
[2018-08-22] MEDS ORDERED: PROPOFOL 20 ML ONE (18:58)
[2018-08-22] MEDS ORDERED: LIDOCAINE 2% (SDV) 5 ML INJ ONE (18:58)
--- NOTE | 2018-08-22 18:59 | OPR ---
Date/Time of Note Date/Time of Note DATE: 08/22/18 TIME: 18:59 Operative Report Preoperative Diagnosis RLE cellulitis RLE venous ulcer RLE edema RLE abscess Pain in limb R Postoperative Diagnosis RLE cellulitis RLE venous ulcer RLE edema RLE abscess Pain in limb R Operation/Procedure Performed right lower extremity incision and drainage Right lower extremity Excisional debridement application of wound VAC Surgeon see signature line Wireless Cellular Technician none Anesthesia Type: MAC Estimated Blood Loss: 10 - 50 ml's Transfusion none Specimen right leg wound culture Grafts/Implants none Complications none Indications 38 y/o M patient with abscess and right lower extremity venous ulcer with cellulitis. Patient had attempted to drain wound himself and treat the wound himself along with antibiotics but failed conservative therapy. Patient amenable to surgical intervention at this time. All of the patient's questions and concerns were addressed, no promises or guarantees were given. Procedure Description Patient was brought into the OR and placed on the OR table in the supine position. The right lower extremity was provided with a popliteal block by the anesthesia team. The right lower extremity was scrubbed, prepped, and draped in the usual aseptic fashion. A formal time out was conducted. Attention was directed to the right anterior leg ulceration and incision and drainage was performed which revealed 4-5mL of seropurulent drainage, and 10-15 mL of sanguinous drainage. There was necrotic adipose tissue that was also expressed. Next excisional debridement of skin/subQ/muscle/fascia was performed of the right lower extremity ulcer with scissors/pickups. Necrotic adipose tissue and non-viable tissue was removed from the wound bed. The ulcer measured 3 x 3.1 x 1.5cm, there was tunneling and undermining tissue of 6cm in the proximal direction. 9.3cm2 of area was debrided, wound cultures were obtained. Antibiotic infused pulse lavage was used copiously and a wound VAC was applied using black foam with 125mmHg low continuous therapy. Patient was transferred to the PACU with vital signs stable and neurovascular status intact. NASRA PERAZA DPM Aug 22, 2018 18:59
--- NOTE | 2018-08-22 19:12 | PAC ---
Date/Time of Note Date/Time of Note DATE: 08/22/18 TIME: 19:11 Post-Anesthesia Notes Post-Anesthesia Note Last documented vital signs Vital Signs Date Temp Pulse Resp B/P (MAP) Pulse Ox O2 O2 Flow FiO2 Time Delivery Rate 08/22/18 98.0 91 18 107/59 96 Nasal 13:34 (75) Cannula 08/20/18 2.0 03:29 Activity: WNL Respiratory function: WNL Cardiovascular function: WNL Mental status: Baseline Pain reasonably controlled: Yes Hydration appropriate: Yes Nausea/Vomiting absent: Yes Comments BP:168/71, P:92, Spo2:100%, T:98,8 JYOTI GAXIOLA MD Aug 22, 2018 19:12
[2018-08-22] MEDS ORDERED: DIPHENHYDRAMINE 50 MG INJ IV PRN (19:30)
[2018-08-22] MEDS ORDERED: MEPERIDINE 25 MG INJ IV PRN (19:30)
[2018-08-22] MEDS ORDERED: FENTAnyl 50 MCG/ML VIAL IV PRN (19:30)
[2018-08-22] MEDS ORDERED: ONDANSETRON 4 MG INJ IV PRN (19:30)
[2018-08-22] MEDS ORDERED: LABETALOL HCL 20MG INJ IV PRN (19:30)
[2018-08-22] MEDS ORDERED: HYDROmorphONE 1 MG/5 ML IV SYRINGE IV PRN ×2 (19:30)
[2018-08-22] MEDS ORDERED: hydrALAzine 20 MG INJ IV PRN (19:30)
[2018-08-23 02:00] VITALS: BP 101/68; PULSE 98; RESP 17
[2018-08-23] MEDS: VANCOMYCIN HCL 1.5 GM in SOD CHLORIDE 0.9% 250 ML IVPB SCH ×3 (05:43→22:08)
[2018-08-23] MEDS: NICOTINE (21 MG/24 HR) PATCH TRANSDERM SCH (09:00)
[2018-08-23] MEDS: FUROSEMIDE 20 MG TAB PO SCH (09:00)
[2018-08-23] MEDS: ENOXAPARIN 40 MG/0.4 ML SYG SC SCH (09:08)
[2018-08-23] MEDS: CEFEPIME 2GM/50 ML IVPB SCH ×2 (10:44→20:59)
--- NOTE | 2018-08-23 12:15 | PN ---
Date/Time of Note Date/Time of Note DATE: 08/23/18 TIME: 12:13 Assessment/Plan VTE Prophylaxis Risk score (from Nsg)>0 risk: 4 SCD applied (from Ns): No SCD contraindicated: other Pharmacological prophylaxis: LMWH Lines/Catheters IV Catheter Type (from Nrs): Peripheral IV Assessment/Plan Hospital Course SUBJECTIVE: Denies any pain. OBJECTIVE: Physical Exam General: Morbidly obese 38 year-old year-old male lying in bed in no apparent distress. HEENT: Normocephalic, atraumatic. Eyes: Anicteric sclerae, conjunctivae clear. ENT: Nasal septum midline, oral mucosa moist. Neck supple, no JVD noticed. Respiratory: Bilaterally clear breath sounds. No use of accessory muscles of respiration. No adventitious breath sounds. Cardiovascular: S1, S2 heard. Regular rate and rhythm Abdomen: Soft, nontender, and nondistended. Bowel sounds positive in all 4 quadrants. Genitourinary: Deferred. Extremities: No cyanosis, no clubbing. Bilateral lower extremity venous stasis changes. RLE dressing with a wound vac. Neurologic: Cranial nerves II through XII grossly intact. The patient is awake, alert, and oriented. Labs & Vitals per chart ASSESSMENT & PLAN This is a 38-year-old male with comorbidities including morbid obesity, COPD, obstructive sleep apnea, prediabetes, and nicotine use. The patient was recently evaluated at [facility] and was discharged home on 08/16/2018. At that time, the patient had right lower extremity pain and the patient underwent a right lower extremity CT scan that was showing extensive anterolateral subcutaneous infiltration/fluid collection superficial to the muscles and patella. The patient came back to the ER on 08/20/2018 with chief complaint of a right adams blister that was draining "pus." The patient was admitted to inpatient setting for further treatment and evaluation. 1. Right lower extremity venous stasis with underlying cellulitis and possible underlying abscess. -Continue antimicrobials including coverage for MRSA. -RLE MRI showing extensive, anterolateral predominant soft tissue edema with more focal appearing fluid collection suggesting abscess superimposed on cellulitis. -Being followed by podiatry. -Status post right lower extremity incision and drainage, excisional debridement, and application of wound VAC on 08/22/2018. -Podiatry recommending long-term antibiotics. 2. Obstructive sleep apnea. - Nocturnal CPAP. 3. Nicotine use. -Cessation advised. 4. Morbid obesity. -BMI more than 53 kg/m. -Weight reduction advised. 5. Prediabetes. -Monitor glycemic trends. 6. Fluids, electrolytes, and nutrition. -Low-cholesterol diet. 7. DVT prophylaxis. -Subcutaneous Lovenox. 8. Plan. -Continue antimicrobials as per ID. -PICC line insertion for ferry terminal agent IV antibiotic therapy. The patient was seen in collaboration with Dr. Rosas. Result Diagram: 08/23/1845 08/23/1845 Results 24hrs Laboratory Tests Test 08/22/18 21:54 08/23/18 05:45 08/23/18 05:46 Vancomycin Level Trough 15.2 White Blood Count 5.4 Red Blood Count 5.03 Hemoglobin 14.0 Hematocrit 43.2 Mean Corpuscular Volume 85.9 Mean Corpuscular Hemoglobin 27.8 L Mean Corpuscular Hemoglobin Concent 32.4 Red Cell Distribution Width 16.4 H Platelet Count 196 Mean Platelet Volume 10.9 H Immature Granulocytes % 0.700 H Neutrophils % 66.5 Lymphocytes % 22.0 Monocytes % 8.9 Eosinophils % 1.5 Basophils % 0.4 Nucleated Red Blood Cells % 0.0 Immature Granulocytes # 0.040 H Neutrophils # 3.6 Lymphocytes # 1.2 Monocytes # 0.5 Eosinophils # 0.1 Basophils # 0.0 Nucleated Red Blood Cells # 0.0 Sodium Level 139 Potassium Level 4.0 Chloride Level 101 Carbon Dioxide Level 27 Anion Gap 11 Blood Urea Nitrogen 17 Creatinine 0.85 Est Glomerular Filtrat Rate mL/min > 60 Glucose Level 91 Calcium Level 9.1 Phosphorus Level 4.2 Magnesium Level 1.7 Exam/Review of Systems Exam Vitals Vital Signs Date Temp Pulse Resp B/P (MAP) Pulse Ox O2 O2 Flow FiO2 Time Delivery Rate 08/23/18 98.8 98 17 101/68 91 02:00 (79) 08/22/18 Room Air 19:49 08/20/18 2.0 03:29 Intake and Output 08/22/18 08/22/18 08/23/18 1515:00 23:00 07:00 IntakeIntake Total 50 ml 875 ml 500 ml OutputOutput Total 30 ml BalanceBalance 50 ml 845 ml 500 ml Results Results 24hrs Laboratory Tests Test 08/22/18 21:54 08/23/18 05:45 08/23/18 05:46 Vancomycin Level Trough 15.2 White Blood Count 5.4 Red Blood Count 5.03 Hemoglobin 14.0 Hematocrit 43.2 Mean Corpuscular Volume 85.9 Mean Corpuscular Hemoglobin 27.8 L Mean Corpuscular Hemoglobin Concent 32.4 Red Cell Distribution Width 16.4 H Platelet Count 196 Mean Platelet Volume 10.9 H Immature Granulocytes % 0.700 H Neutrophils % 66.5 Lymphocytes % 22.0 Monocytes % 8.9 Eosinophils % 1.5 Basophils % 0.4 Nucleated Red Blood Cells % 0.0 Immature Granulocytes # 0.040 H Neutrophils # 3.6 Lymphocytes # 1.2 Monocytes # 0.5 Eosinophils # 0.1 Basophils # 0.0 Nucleated Red Blood Cells # 0.0 Sodium Level 139 Potassium Level 4.0 Chloride Level 101 Carbon Dioxide Level 27 Anion Gap 11 Blood Urea Nitrogen 17 Creatinine 0.85 Est Glomerular Filtrat Rate mL/min > 60 Glucose Level 91 Calcium Level 9.1 Phosphorus Level 4.2 Magnesium Level 1.7 Medications Medication Current Medications IV Flush (NS 3 ml) 3 ml PER PROTOCOL IV ; Start 08/20/18 at 06:00 Ondansetron HCl (Zofran Inj) 4 mg Q6H PRN IV NAUSEA/VOMITING; Start 08/20/18 at 06:00 Acetaminophen (Tylenol Tab) 650 mg Q6H PRN PO .PAIN 1-3 OR TEMP; Start 08/20/18 at 06:00 Acetaminophen/ Hydrocodone Bitart ([place] (5/325)) 1 tab Q6H PRN PO .MOD PAIN 4- 6; Start 08/20/18 at 06:00 Acetaminophen/ Hydrocodone Bitart ([place] (5/325)) 2 tab Q6H PRN PO .SEVERE PAIN 7-10; Start 08/20/18 at 06:00 Enoxaparin Sodium (Lovenox) 40 mg DAILY SC Last administered on 08/23/18at 09:08; Admin Dose 40 MG; Start 08/20/18 at 09:00 Albuterol/ Ipratropium (Duoneb) 3 ml Q2H RESP THERAPY PRN HHN SHORTNESS OF BREATH; Start 08/20/18 at 06:00 Furosemide (Lasix) 20 mg DAILY PO Last administered on 08/21/18at 08:00; Admin Dose 20 MG; Start 08/20/18 at 09:00 Nicotine (Nicoderm 21 Mg/ 24hr) 1 patch DAILY TRANSDERM Last administered on 08/22/18at 11:07; Admin Dose 1 PATCH; Start 08/20/18 at 09:00 Vancomycin HCl (Vanco Iv Per Pharmacy) VANCOMYCIN PER PHARMACY PER PROTOCOL XX ; Start 08/20/18 at 06:00 Cefepime HCl 50 ml @ 100 mls/hr Q12 IVPB Last administered on 08/23/18at 10:44; Admin Dose 100 MLS/HR; Start 08/21/18 at 21:00 Vancomycin HCl 1.5 gm/Sodium Chloride 250 ml @ 83.333 mls/ hr Q8H IVPB Last administered on 08/23/18at 05:43; Admin Dose 83.333 MLS/HR; Start 08/22/18 at 06:00 BHARGAV PUENTE NP Aug 23, 2018 12:15
[2018-08-23] MEDS ORDERED: LIDOCAINE 1% (MPF) 5 ML VIAL SC ONE (12:30)
--- NOTE | 2018-08-23 13:44 | CONS ---
Assessment/Plan Assessment/Plan Hospital Course (Demo Recall) Patient is sleeping looks comfortable no fevers overnight. WBC 5.4 no shift BUN 17 creatinine 0.85 Microbiology: Blood cultures negative Antimicrobials: Vancomycin, cefepime MRI of the right lower extremity revealed no osteomyelitis questionable abscess superimposed on cellulitis Physical examination: Morbidly obese well-developed middle-aged man who is alert in no distress. Head atraumatic normocephalic sclera nonicteric. Neck is supple. Chest rise symmetrical breath sounds diminished bases. Heart: S1- S2. Abdomen obese soft bowel sounds hypoactive. Extremities with right lower extremity edema erythema with dressing present below knee all the way down to the foot Assessment: 1. Right lower extremity cellulitis with abscess status post I&D with wound VAC application 2. Morbid obesity Plan: Patient remains stable, continue antibiotics, await for intraoperative cultures, podiatry recommendations Consultation Date/Type/Reason Admit Date/Time Aug 20, 2018 at 01:56 Initial Consult Date Type of Consult id Date/Time of Note DATE: 08/23/18 TIME: 13:43 Exam/Review of Systems Exam Vitals Vital Signs Date Temp Pulse Resp B/P (MAP) Pulse Ox O2 O2 Flow FiO2 Time Delivery Rate 08/23/18 98.8 98 17 101/68 91 02:00 (79) 08/22/18 Room Air 19:49 08/20/18 2.0 03:29 Intake and Output 08/22/18 08/22/18 08/23/18 1515:00 23:00 07:00 IntakeIntake Total 50 ml 875 ml 500 ml OutputOutput Total 30 ml BalanceBalance 50 ml 845 ml 500 ml Results Result Diagram: 08/23/18 0545 08/23/18 0545 Results 24hrs Laboratory Tests Test 08/22/18 21:54 08/23/18 05:45 08/23/18 05:46 Vancomycin Level Trough 15.2 White Blood Count 5.4 Red Blood Count 5.03 Hemoglobin 14.0 Hematocrit 43.2 Mean Corpuscular Volume 85.9 Mean Corpuscular Hemoglobin 27.8 L Mean Corpuscular Hemoglobin Concent 32.4 Red Cell Distribution Width 16.4 H Platelet Count 196 Mean Platelet Volume 10.9 H Immature Granulocytes % 0.700 H Neutrophils % 66.5 Lymphocytes % 22.0 Monocytes % 8.9 Eosinophils % 1.5 Basophils % 0.4 Nucleated Red Blood Cells % 0.0 Immature Granulocytes # 0.040 H Neutrophils # 3.6 Lymphocytes # 1.2 Monocytes # 0.5 Eosinophils # 0.1 Basophils # 0.0 Nucleated Red Blood Cells # 0.0 Sodium Level 139 Potassium Level 4.0 Chloride Level 101 Carbon Dioxide Level 27 Anion Gap 11 Blood Urea Nitrogen 17 Creatinine 0.85 Est Glomerular Filtrat Rate mL/min > 60 Glucose Level 91 Calcium Level 9.1 Phosphorus Level 4.2 Magnesium Level 1.7 Medications Medication Current Medications IV Flush (NS 3 ml) 3 ml PER PROTOCOL IV ; Start 08/20/18 at 06:00 Ondansetron HCl (Zofran Inj) 4 mg Q6H PRN IV NAUSEA/VOMITING; Start 08/20/18 at 06:00 Acetaminophen (Tylenol Tab) 650 mg Q6H PRN PO .PAIN 1-3 OR TEMP; Start 08/20/18 at 06:00 Acetaminophen/ Hydrocodone Bitart ([place] (5/325)) 1 tab Q6H PRN PO .MOD PAIN 4- 6; Start 08/20/18 at 06:00 Acetaminophen/ Hydrocodone Bitart ([place] (5/325)) 2 tab Q6H PRN PO .SEVERE PAIN 7-10; Start 08/20/18 at 06:00 Enoxaparin Sodium (Lovenox) 40 mg DAILY SC Last administered on 08/23/18at 09:08; Admin Dose 40 MG; Start 08/20/18 at 09:00 Albuterol/ Ipratropium (Duoneb) 3 ml Q2H RESP THERAPY PRN HHN SHORTNESS OF BREATH; Start 08/20/18 at 06:00 Furosemide (Lasix) 20 mg DAILY PO Last administered on 08/21/18at 08:00; Admin Dose 20 MG; Start 08/20/18 at 09:00 Nicotine (Nicoderm 21 Mg/ 24hr) 1 patch DAILY TRANSDERM Last administered on 08/22/18at 11:07; Admin Dose 1 PATCH; Start 08/20/18 at 09:00 Vancomycin HCl (Vanco Iv Per Pharmacy) VANCOMYCIN PER PHARMACY PER PROTOCOL XX ; Start 08/20/18 at 06:00 Cefepime HCl 50 ml @ 100 mls/hr Q12 IVPB Last administered on 08/23/18at 10:44; Admin Dose 100 MLS/HR; Start 08/21/18 at 21:00 Vancomycin HCl 1.5 gm/Sodium Chloride 250 ml @ 83.333 mls/ hr Q8H IVPB Last administered on 08/23/18at 05:43; Admin Dose 83.333 MLS/HR; Start 08/22/18 at 06:00 DANE WELSH NP Aug 23, 2018 13:44
[2018-08-23 20:08] VITALS: BP 136/99; PULSE 97; RESP 17
[2018-08-24 02:00] VITALS: BP 129/84; PULSE 99; RESP 19
[2018-08-24] MEDS: VANCOMYCIN HCL 1.5 GM in SOD CHLORIDE 0.9% 250 ML IVPB SCH (05:36)
[2018-08-24 07:59] VITALS: BP 127/80; PULSE 88; RESP 18
[2018-08-24] MEDS: CEFEPIME 2GM/50 ML IVPB SCH ×2 (08:58→20:37)
[2018-08-24] MEDS: FUROSEMIDE 20 MG TAB PO SCH (08:59)
[2018-08-24] MEDS: NICOTINE (21 MG/24 HR) PATCH TRANSDERM SCH (08:59)
[2018-08-24] MEDS: ENOXAPARIN 40 MG/0.4 ML SYG SC SCH (09:04)
--- NOTE | 2018-08-24 13:34 | CONS ---
Assessment/Plan Assessment/Plan Hospital Course (Demo Recall) Alert, feels good, no fevers Microbiology: Blood cultures negative Antimicrobials: Vancomycin, cefepime MRI of the right lower extremity revealed no osteomyelitis questionable abscess superimposed on cellulitis Physical examination: Morbidly obese well-developed middle-aged man who is alert in no distress. Head atraumatic normocephalic sclera nonicteric. Neck is supple. Chest rise symmetrical breath sounds diminished bases. Heart: S1- S2. Abdomen obese soft bowel sounds hypoactive. Extremities with right lower extremity edema erythema with dressing present below knee all the way down to the foot Assessment: 1. Right lower extremity cellulitis with abscess status post I&D with wound VAC application 2. Morbid obesity Plan: Patient remains stable, intraoperative cultures preliminary negative, continue present care, anticipate discharge on oral Bactrim and ciprofloxacin to complete [address] Tan Consultation Date/Type/Reason Admit Date/Time Aug 20, 2018 at 01:56 Initial Consult Date Type of Consult id Date/Time of Note DATE: 08/24/18 TIME: 13:33 Exam/Review of Systems Exam Vitals Vital Signs Date Temp Pulse Resp B/P (MAP) Pulse Ox O2 O2 Flow FiO2 Time Delivery Rate 08/24/18 Nasal 2.0 08:00 Cannula 08/24/18 98.1 88 18 127/80 93 07:59 (96) Intake and Output 08/23/18 08/23/18 08/24/18 1515:00 23:00 07:00 IntakeIntake Total 740 ml 400 ml 425 ml OutputOutput Total 800 ml BalanceBalance -60 ml 400 ml 425 ml Results Result Diagram: 08/24/18 0517 08/24/18 0517 Results 24hrs Laboratory Tests Test 08/24/18 05:17 White Blood Count 4.7 L Red Blood Count 4.91 Hemoglobin 13.3 L Hematocrit 42.4 Mean Corpuscular Volume 86.4 Mean Corpuscular Hemoglobin 27.1 L Mean Corpuscular Hemoglobin Concent 31.4 L Red Cell Distribution Width 16.2 H Platelet Count 176 Mean Platelet Volume 10.5 H Immature Granulocytes % 0.400 Neutrophils % 60.9 Lymphocytes % 24.6 Monocytes % 12.0 H Eosinophils % 1.7 Basophils % 0.4 Nucleated Red Blood Cells % 0.0 Immature Granulocytes # 0.020 Neutrophils # 2.8 Lymphocytes # 1.2 Monocytes # 0.6 Eosinophils # 0.1 Basophils # 0.0 Nucleated Red Blood Cells # 0.0 Sodium Level 141 Potassium Level 4.2 Chloride Level 106 Carbon Dioxide Level 27 Anion Gap 8 Blood Urea Nitrogen 19 Creatinine 0.91 Est Glomerular Filtrat Rate mL/min > 60 Glucose Level 92 Calcium Level 9.4 Phosphorus Level 4.7 Magnesium Level 1.9 Vancomycin Level Trough 20.4 *H Medications Medication Current Medications IV Flush (NS 3 ml) 3 ml PER PROTOCOL IV ; Start 08/20/18 at 06:00 Ondansetron HCl (Zofran Inj) 4 mg Q6H PRN IV NAUSEA/VOMITING; Start 08/20/18 at 06:00 Acetaminophen (Tylenol Tab) 650 mg Q6H PRN PO .PAIN 1-3 OR TEMP; Start 08/20/18 at 06:00 Acetaminophen/ Hydrocodone Bitart ([place] (5/325)) 1 tab Q6H PRN PO .MOD PAIN 4- 6; Start 08/20/18 at 06:00 Acetaminophen/ Hydrocodone Bitart ([place] (5/325)) 2 tab Q6H PRN PO .SEVERE PAIN 7-10; Start 08/20/18 at 06:00 Enoxaparin Sodium (Lovenox) 40 mg DAILY SC Last administered on 08/24/18at 09:04; Admin Dose 40 MG; Start 08/20/18 at 09:00 Albuterol/ Ipratropium (Duoneb) 3 ml Q2H RESP THERAPY PRN HHN SHORTNESS OF BREATH; Start 08/20/18 at 06:00 Furosemide (Lasix) 20 mg DAILY PO Last administered on 08/24/18at 08:59; Admin Dose 20 MG; Start 08/20/18 at 09:00 Nicotine (Nicoderm 21 Mg/ 24hr) 1 patch DAILY TRANSDERM Last administered on 08/22/18at 11:07; Admin Dose 1 PATCH; Start 08/20/18 at 09:00 Vancomycin HCl (Vanco Iv Per Pharmacy) VANCOMYCIN PER PHARMACY PER PROTOCOL XX ; Start 08/20/18 at 06:00 Cefepime HCl 50 ml @ 100 mls/hr Q12 IVPB Last administered on 08/24/18at 08:58; Admin Dose 100 MLS/HR; Start 08/21/18 at 21:00 Vancomycin HCl 1.25 gm/Sodium Chloride 250 ml @ 83.333 mls/ hr Q8H IVPB ; Start 08/24/18 at 14:00 DANE WELSH NP Aug 24, 2018 13:34
[2018-08-24] MEDS: VANCOMYCIN HCL 1.25 GM in SOD CHLORIDE 0.9% 250 ML IVPB SCH ×2 (13:53→22:22)
[2018-08-24 14:00] VITALS: BP 132/68; PULSE 82; RESP 18
[2018-08-24] MEDS ORDERED: CYCLOBENZAPRINE 10 MG TAB PO ONE (14:30)
[2018-08-24] MEDS ORDERED: CYCLOBENZAPRINE 10 MG TAB PO PRN (14:30)
--- NOTE | 2018-08-24 15:35 | PN ---
Date/Time of Note Date/Time of Note DATE: 08/24/18 TIME: 15:34 Assessment/Plan VTE Prophylaxis Risk score (from Nsg)>0 risk: 3 SCD applied (from Ns): No SCD contraindicated: other Pharmacological prophylaxis: LMWH Lines/Catheters IV Catheter Type (from Nrs): Peripheral IV Urinary Cath still in place: No Assessment/Plan Hospital Course SUBJECTIVE: Denies any pain. OBJECTIVE: Physical Exam General: Morbidly obese 38 year-old year-old male lying in bed in no apparent distress. HEENT: Normocephalic, atraumatic. Eyes: Anicteric sclerae, conjunctivae clear. ENT: Nasal septum midline, oral mucosa moist. Neck supple, no JVD noticed. Respiratory: Bilaterally clear breath sounds. No use of accessory muscles of respiration. No adventitious breath sounds. Cardiovascular: S1, S2 heard. Regular rate and rhythm Abdomen: Soft, nontender, and nondistended. Bowel sounds positive in all 4 quadrants. Genitourinary: Deferred. Extremities: No cyanosis, no clubbing. Bilateral lower extremity venous stasis changes. RLE dressing with a wound vac. Neurologic: Cranial nerves II through XII grossly intact. The patient is awake, alert, and oriented. Labs & Vitals per chart ASSESSMENT & PLAN This is a 38-year-old male with comorbidities including morbid obesity, COPD, obstructive sleep apnea, prediabetes, and nicotine use. The patient was recently evaluated at [facility] and was discharged home on 08/16/2018. At that time, the patient had right lower extremity pain and the patient underwent a right lower extremity CT scan that was showing extensive anterolateral subcutaneous infiltration/fluid collection superficial to the muscles and patella. The patient came back to the ER on 08/20/2018 with chief complaint of a right adams blister that was draining "pus." The patient was admitted to inpatient setting for further treatment and evaluation. 1. Right lower extremity venous stasis with underlying cellulitis and possible underlying abscess. -Continue antimicrobials including coverage for MRSA. -RLE MRI showing extensive, anterolateral predominant soft tissue edema with more focal appearing fluid collection suggesting abscess superimposed on cellulitis. -Being followed by podiatry. -Status post right lower extremity incision and drainage, excisional debridement, and application of wound VAC on 08/22/2018. 2. Obstructive sleep apnea. - Nocturnal CPAP. 3. Nicotine use. -Cessation advised. 4. Morbid obesity. -BMI more than 53 kg/m. -Weight reduction advised. 5. Prediabetes. -Monitor glycemic trends. 6. Fluids, electrolytes, and nutrition. -Low-cholesterol diet. 7. DVT prophylaxis. -Subcutaneous Lovenox. 8. Plan. -Continue antimicrobials as per ID. -Await home health to be arranged for wound VAC before discharging the patient home on oral antibiotics. The patient was seen in collaboration with Dr. Rosas. Result Diagram: 08/24/1851608/24/18516 Results 24hrs Laboratory Tests Test 08/24/18 05:17 White Blood Count 4.7 L Red Blood Count 4.91 Hemoglobin 13.3 L Hematocrit 42.4 Mean Corpuscular Volume 86.4 Mean Corpuscular Hemoglobin 27.1 L Mean Corpuscular Hemoglobin Concent 31.4 L Red Cell Distribution Width 16.2 H Platelet Count 176 Mean Platelet Volume 10.5 H Immature Granulocytes % 0.400 Neutrophils % 60.9 Lymphocytes % 24.6 Monocytes % 12.0 H Eosinophils % 1.7 Basophils % 0.4 Nucleated Red Blood Cells % 0.0 Immature Granulocytes # 0.020 Neutrophils # 2.8 Lymphocytes # 1.2 Monocytes # 0.6 Eosinophils # 0.1 Basophils # 0.0 Nucleated Red Blood Cells # 0.0 Sodium Level 141 Potassium Level 4.2 Chloride Level 106 Carbon Dioxide Level 27 Anion Gap 8 Blood Urea Nitrogen 19 Creatinine 0.91 Est Glomerular Filtrat Rate mL/min > 60 Glucose Level 92 Calcium Level 9.4 Phosphorus Level 4.7 Magnesium Level 1.9 Vancomycin Level Trough 20.4 *H Exam/Review of Systems Exam Vitals Vital Signs Date Temp Pulse Resp B/P (MAP) Pulse Ox O2 O2 Flow FiO2 Time Delivery Rate 08/24/18 98.0 82 18 132/68 95 14:00 (89) 08/24/18 Nasal 2.0 08:00 Cannula Intake and Output 08/23/18 08/23/18 08/24/18 1515:00 23:00 07:00 IntakeIntake Total 740 ml 400 ml 425 ml OutputOutput Total 800 ml BalanceBalance -60 ml 400 ml 425 ml Results Results 24hrs Laboratory Tests Test 08/24/18 05:17 White Blood Count 4.7 L Red Blood Count 4.91 Hemoglobin 13.3 L Hematocrit 42.4 Mean Corpuscular Volume 86.4 Mean Corpuscular Hemoglobin 27.1 L Mean Corpuscular Hemoglobin Concent 31.4 L Red Cell Distribution Width 16.2 H Platelet Count 176 Mean Platelet Volume 10.5 H Immature Granulocytes % 0.400 Neutrophils % 60.9 Lymphocytes % 24.6 Monocytes % 12.0 H Eosinophils % 1.7 Basophils % 0.4 Nucleated Red Blood Cells % 0.0 Immature Granulocytes # 0.020 Neutrophils # 2.8 Lymphocytes # 1.2 Monocytes # 0.6 Eosinophils # 0.1 Basophils # 0.0 Nucleated Red Blood Cells # 0.0 Sodium Level 141 Potassium Level 4.2 Chloride Level 106 Carbon Dioxide Level 27 Anion Gap 8 Blood Urea Nitrogen 19 Creatinine 0.91 Est Glomerular Filtrat Rate mL/min > 60 Glucose Level 92 Calcium Level 9.4 Phosphorus Level 4.7 Magnesium Level 1.9 Vancomycin Level Trough 20.4 *H Medications Medication Current Medications IV Flush (NS 3 ml) 3 ml PER PROTOCOL IV ; Start 08/20/18 at 06:00 Ondansetron HCl (Zofran Inj) 4 mg Q6H PRN IV NAUSEA/VOMITING; Start 08/20/18 at 06:00 Acetaminophen (Tylenol Tab) 650 mg Q6H PRN PO .PAIN 1-3 OR TEMP; Start 08/20/18 at 06:00 Acetaminophen/ Hydrocodone Bitart ([place] (5/325)) 1 tab Q6H PRN PO .MOD PAIN 4- 6; Start 08/20/18 at 06:00 Acetaminophen/ Hydrocodone Bitart ([place] (5/325)) 2 tab Q6H PRN PO .SEVERE PAIN 7-10; Start 08/20/18 at 06:00 Enoxaparin Sodium (Lovenox) 40 mg DAILY SC Last administered on 08/24/18at 09:04; Admin Dose 40 MG; Start 08/20/18 at 09:00 Albuterol/ Ipratropium (Duoneb) 3 ml Q2H RESP THERAPY PRN HHN SHORTNESS OF BREATH; Start 08/20/18 at 06:00 Furosemide (Lasix) 20 mg DAILY PO Last administered on 08/24/18at 08:59; Admin Dose 20 MG; Start 08/20/18 at 09:00 Nicotine (Nicoderm 21 Mg/ 24hr) 1 patch DAILY TRANSDERM Last administered on 08/22/18at 11:07; Admin Dose 1 PATCH; Start 08/20/18 at 09:00 Vancomycin HCl (Vanco Iv Per Pharmacy) VANCOMYCIN PER PHARMACY PER PROTOCOL XX ; Start 08/20/18 at 06:00 Cefepime HCl 50 ml @ 100 mls/hr Q12 IVPB Last administered on 08/24/18at 08:58; Admin Dose 100 MLS/HR; Start 08/21/18 at 21:00 Vancomycin HCl 1.25 gm/Sodium Chloride 250 ml @ 83.333 mls/ hr Q8H IVPB Last administered on 08/24/18at 13:53; Admin Dose 83.333 MLS/HR; Start 08/24/18 at 14:00 BHARGAV PUENTE NP Aug 24, 2018 15:35
[2018-08-24 19:42] VITALS: BP 122/74; PULSE 98; RESP 18
--- NOTE | 2018-08-24 20:36 | CONS ---
Assessment/Plan Assessment/Plan Assessment/Plan (Daily) RLE cellulitis - improved RLE venous ulcer RLE edema RLE abscess s/p incision and drainage with excisional debridement (DOS: 08/22/18) Pain in limb R Plan Wound VAC dressings changed and kept at 125mmHg low continuous therapy. Patient will need home VAC and home health nursing for dressing changes. Intra-op wound cultures currently showing no growth. PO anbx per ID. Patient will need follow up in [facility] wound clinic at [facility]. Patient will need higher level of health insurance for follow up and future procedures. Appreciate case management and social service input. Consultation Date/Type/Reason Admit Date/Time Aug 20, 2018 at 01:56 Initial Consult Date Date/Time of Note DATE: 08/24/18 TIME: 20:36 24 HR Interval Summary Free Text/Dictation No acute events overnight Exam/Review of Systems Exam Vitals Vital Signs Date Temp Pulse Resp B/P (MAP) Pulse Ox O2 O2 Flow FiO2 Time Delivery Rate 08/24/18 97.6 98 18 122/74 95 19:42 (90) 08/24/18 Nasal 2.0 08:00 Cannula Intake and Output 08/23/18 08/23/18 08/24/18 1515:00 23:00 07:00 IntakeIntake Total 740 ml 400 ml 425 ml OutputOutput Total 800 ml BalanceBalance -60 ml 400 ml 425 ml Exam Right anterior leg ulceration site The ulcer measured 3 x 3.1 x 0.6cm, no probing to bone or tunneling appreciated. Granular wound base without purulence noted Pain on palpation to ulcer site palpable pedal pulses Muscle strength 5/5 in all compartments of the foot Results Result Diagram: 08/24/18 0517 08/24/18 0517 Results 24hrs Laboratory Tests Test 08/24/18 05:17 White Blood Count 4.7 L Red Blood Count 4.91 Hemoglobin 13.3 L Hematocrit 42.4 Mean Corpuscular Volume 86.4 Mean Corpuscular Hemoglobin 27.1 L Mean Corpuscular Hemoglobin Concent 31.4 L Red Cell Distribution Width 16.2 H Platelet Count 176 Mean Platelet Volume 10.5 H Immature Granulocytes % 0.400 Neutrophils % 60.9 Lymphocytes % 24.6 Monocytes % 12.0 H Eosinophils % 1.7 Basophils % 0.4 Nucleated Red Blood Cells % 0.0 Immature Granulocytes # 0.020 Neutrophils # 2.8 Lymphocytes # 1.2 Monocytes # 0.6 Eosinophils # 0.1 Basophils # 0.0 Nucleated Red Blood Cells # 0.0 Sodium Level 141 Potassium Level 4.2 Chloride Level 106 Carbon Dioxide Level 27 Anion Gap 8 Blood Urea Nitrogen 19 Creatinine 0.91 Est Glomerular Filtrat Rate mL/min > 60 Glucose Level 92 Calcium Level 9.4 Phosphorus Level 4.7 Magnesium Level 1.9 Vancomycin Level Trough 20.4 *H Medications Medication Current Medications IV Flush (NS 3 ml) 3 ml PER PROTOCOL IV ; Start 08/20/18 at 06:00 Ondansetron HCl (Zofran Inj) 4 mg Q6H PRN IV NAUSEA/VOMITING; Start 08/20/18 at 06:00 Acetaminophen (Tylenol Tab) 650 mg Q6H PRN PO .PAIN 1-3 OR TEMP; Start 08/20/18 at 06:00 Acetaminophen/ Hydrocodone Bitart ([place] (5/325)) 1 tab Q6H PRN PO .MOD PAIN 4- 6; Start 08/20/18 at 06:00 Acetaminophen/ Hydrocodone Bitart ([place] (5/325)) 2 tab Q6H PRN PO .SEVERE PAIN 7-10; Start 08/20/18 at 06:00 Enoxaparin Sodium (Lovenox) 40 mg DAILY SC Last administered on 08/24/18at 09:04; Admin Dose 40 MG; Start 08/20/18 at 09:00 Albuterol/ Ipratropium (Duoneb) 3 ml Q2H RESP THERAPY PRN HHN SHORTNESS OF BREATH; Start 08/20/18 at 06:00 Furosemide (Lasix) 20 mg DAILY PO Last administered on 08/24/18at 08:59; Admin Dose 20 MG; Start 08/20/18 at 09:00 Nicotine (Nicoderm 21 Mg/ 24hr) 1 patch DAILY TRANSDERM Last administered on 08/22/18at 11:07; Admin Dose 1 PATCH; Start 08/20/18 at 09:00 Vancomycin HCl (Vanco Iv Per Pharmacy) VANCOMYCIN PER PHARMACY PER PROTOCOL XX ; Start 08/20/18 at 06:00 Cefepime HCl 50 ml @ 100 mls/hr Q12 IVPB Last administered on 08/24/18at 08:58; Admin Dose 100 MLS/HR; Start 08/21/18 at 21:00 Vancomycin HCl 1.25 gm/Sodium Chloride 250 ml @ 83.333 mls/ hr Q8H IVPB Last administered on 08/24/18at 13:53; Admin Dose 83.333 MLS/HR; Start 08/24/18 at 14:00 NASRA PERAZA DPM Aug 24, 2018 20:36
[2018-08-25 02:02] VITALS: BP 111/61; PULSE 91; RESP 20
[2018-08-25] MEDS: VANCOMYCIN HCL 1.25 GM in SOD CHLORIDE 0.9% 250 ML IVPB SCH ×2 (05:13→14:05)
[2018-08-25 08:00] VITALS: BP 116/56; PULSE 87; RESP 20
[2018-08-25] MEDS: FUROSEMIDE 20 MG TAB PO SCH (08:52)
[2018-08-25] MEDS: NICOTINE (21 MG/24 HR) PATCH TRANSDERM SCH (08:53)
[2018-08-25] MEDS: CEFEPIME 2GM/50 ML IVPB SCH (08:53)
[2018-08-25] MEDS: ENOXAPARIN 40 MG/0.4 ML SYG SC SCH (08:54)
[2018-08-25] MEDS ORDERED: DAKINS 0.0125%(1/40) 473 ML SOLUTION TP SCH (11:00)
--- NOTE | 2018-08-25 13:30 | CONS ---
Assessment/Plan Assessment/Plan Hospital Course (Demo Recall) No acute events. Alert, feels good, no fevers Microbiology: Blood cultures negative Antimicrobials: Vancomycin, cefepime MRI of the right lower extremity revealed no osteomyelitis questionable abscess superimposed on cellulitis Physical examination: Morbidly obese well-developed middle-aged man who is alert in no distress. Head atraumatic normocephalic sclera nonicteric. Neck is supple. Chest rise symmetrical breath sounds diminished bases. Heart: S1- S2. Abdomen obese soft bowel sounds hypoactive. Extremities with right lower extremity edema erythema with dressing present below knee all the way down to the foot Assessment: 1. Right lower extremity cellulitis with abscess status post I&D with wound VAC application 2. Morbid obesity Plan: Patient remains stable, continue present care, anticipate discharge on oral Bactrim and ciprofloxacin to complete 2 weeks Consultation Date/Type/Reason Admit Date/Time Aug 20, 2018 at 01:56 Initial Consult Date Type of Consult id Date/Time of Note DATE: 08/25/18 TIME: 13:29 Exam/Review of Systems Exam Vitals Vital Signs Date Temp Pulse Resp B/P (MAP) Pulse Ox O2 O2 Flow FiO2 Time Delivery Rate 08/25/18 Nasal 2.0 08:00 Cannula 08/25/18 97.8 87 20 116/56 92 08:00 (76) Intake and Output 08/24/18 08/24/18 08/25/18 1515:00 23:00 07:00 IntakeIntake Total 1010 ml 300 ml 490 ml OutputOutput Total 50 ml BalanceBalance 960 ml 300 ml 490 ml Results Result Diagram: 08/24/18 0517 08/24/18 0517 Medications Medication Current Medications IV Flush (NS 3 ml) 3 ml PER PROTOCOL IV ; Start 08/20/18 at 06:00 Ondansetron HCl (Zofran Inj) 4 mg Q6H PRN IV NAUSEA/VOMITING; Start 08/20/18 at 06:00 Acetaminophen (Tylenol Tab) 650 mg Q6H PRN PO .PAIN 1-3 OR TEMP; Start 08/20/18 at 06:00 Acetaminophen/ Hydrocodone Bitart ([place] (5/325)) 1 tab Q6H PRN PO .MOD PAIN 4- 6 Last administered on 08/24/18at 20:37; Admin Dose 1 TAB; Start 08/20/18 at 06:00 Acetaminophen/ Hydrocodone Bitart ([place] (5/325)) 2 tab Q6H PRN PO .SEVERE PAIN 7-10; Start 08/20/18 at 06:00 Enoxaparin Sodium (Lovenox) 40 mg DAILY SC Last administered on 08/25/18at 08:54; Admin Dose 40 MG; Start 08/20/18 at 09:00 Albuterol/ Ipratropium (Duoneb) 3 ml Q2H RESP THERAPY PRN HHN SHORTNESS OF BREATH; Start 08/20/18 at 06:00 Furosemide (Lasix) 20 mg DAILY PO Last administered on 08/25/18at 08:52; Admin Dose 20 MG; Start 08/20/18 at 09:00 Nicotine (Nicoderm 21 Mg/ 24hr) 1 patch DAILY TRANSDERM Last administered on 08/22/18at 11:07; Admin Dose 1 PATCH; Start 08/20/18 at 09:00 Vancomycin HCl (Vanco Iv Per Pharmacy) VANCOMYCIN PER PHARMACY PER PROTOCOL XX ; Start 08/20/18 at 06:00 Cefepime HCl 50 ml @ 100 mls/hr Q12 IVPB Last administered on 08/25/18at 08:53; Admin Dose 100 MLS/HR; Start 08/21/18 at 21:00 Vancomycin HCl 1.25 gm/Sodium Chloride 250 ml @ 83.333 mls/ hr Q8H IVPB Last administered on 08/25/18at 05:13; Admin Dose 83.333 MLS/HR; Start 08/24/18 at 14:00 Sodium Hypochlorite (Dakins Diluted ()) 1 applic Kasey TP ; Start 08/25/18 at 11:00 DANE WELSH NP Aug 25, 2018 13:30
--- NOTE | 2018-08-25 13:48 | PN ---
Date/Time of Note Date/Time of Note DATE: 08/25/18 TIME: 13:48 Assessment/Plan VTE Prophylaxis Risk score (from Nsg)>0 risk: 3 SCD applied (from Ns): No SCD contraindicated: other Pharmacological prophylaxis: LMWH Lines/Catheters IV Catheter Type (from Nrs): Peripheral IV Urinary Cath still in place: No Assessment/Plan Hospital Course SUBJECTIVE: Denies any pain. OBJECTIVE: Physical Exam General: Morbidly obese 38 year-old year-old male lying in bed in no apparent distress. HEENT: Normocephalic, atraumatic. Eyes: Anicteric sclerae, conjunctivae clear. ENT: Nasal septum midline, oral mucosa moist. Neck supple, no JVD noticed. Respiratory: Bilaterally clear breath sounds. No use of accessory muscles of respiration. No adventitious breath sounds. Cardiovascular: S1, S2 heard. Regular rate and rhythm Abdomen: Soft, nontender, and nondistended. Bowel sounds positive in all 4 quadrants. Genitourinary: Deferred. Extremities: No cyanosis, no clubbing. Bilateral lower extremity venous stasis changes. RLE dressing with a wound vac. Neurologic: Cranial nerves II through XII grossly intact. The patient is awake, alert, and oriented. Labs & Vitals per chart ASSESSMENT & PLAN This is a 38-year-old male with comorbidities including morbid obesity, COPD, obstructive sleep apnea, prediabetes, and nicotine use. The patient was recently evaluated at [facility] and was discharged home on 08/16/2018. At that time, the patient had right lower extremity pain and the patient underwent a right lower extremity CT scan that was showing extensive anterolateral subcutaneous infiltration/fluid collection superficial to the muscles and patella. The patient came back to the ER on 08/20/2018 with chief complaint of a right aadms blister that was draining "pus." The patient was admitted to inpatient setting for further treatment and evaluation. 1. Right lower extremity venous stasis with underlying cellulitis and possible underlying abscess. -Continue antimicrobials including coverage for MRSA. -RLE MRI showing extensive, anterolateral predominant soft tissue edema with more focal appearing fluid collection suggesting abscess superimposed on cellulitis. -Being followed by podiatry. -Status post right lower extremity incision and drainage, excisional debridement, and application of wound VAC on 08/22/2018. 2. Obstructive sleep apnea. - Nocturnal CPAP. 3. Nicotine use. -Cessation advised. 4. Morbid obesity. -BMI more than 53 kg/m. -Weight reduction advised. 5. Prediabetes. -Monitor glycemic trends. 6. Fluids, electrolytes, and nutrition. -Low-cholesterol diet. 7. DVT prophylaxis. -Subcutaneous Lovenox. 8. Plan. -Continue antimicrobials as per ID. -Await home health to be arranged for wound VAC before discharging the patient home on oral antibiotics. The patient was seen in collaboration with Dr. Rosas. Result Diagram: 08/24/1851608/24/18516 Exam/Review of Systems Exam Vitals Vital Signs Date Temp Pulse Resp B/P (MAP) Pulse Ox O2 O2 Flow FiO2 Time Delivery Rate 08/25/18 Nasal 2.0 08:00 Cannula 08/25/18 97.8 87 20 116/56 92 08:00 (76) Intake and Output 08/24/18 08/24/18 08/25/18 1515:00 23:00 07:00 IntakeIntake Total 1010 ml 300 ml 490 ml OutputOutput Total 50 ml BalanceBalance 960 ml 300 ml 490 ml Medications Medication Current Medications IV Flush (NS 3 ml) 3 ml PER PROTOCOL IV ; Start 08/20/18 at 06:00 Ondansetron HCl (Zofran Inj) 4 mg Q6H PRN IV NAUSEA/VOMITING; Start 08/20/18 at 06:00 Acetaminophen (Tylenol Tab) 650 mg Q6H PRN PO .PAIN 1-3 OR TEMP; Start 08/20/18 at 06:00 Acetaminophen/ Hydrocodone Bitart ([place] (5/325)) 1 tab Q6H PRN PO .MOD PAIN 4- 6 Last administered on 08/24/18at 20:37; Admin Dose 1 TAB; Start 08/20/18 at 06:00 Acetaminophen/ Hydrocodone Bitart ([place] (5/325)) 2 tab Q6H PRN PO .SEVERE PAIN 7-10; Start 08/20/18 at 06:00 Enoxaparin Sodium (Lovenox) 40 mg DAILY SC Last administered on 08/25/18at 08:54; Admin Dose 40 MG; Start 08/20/18 at 09:00 Albuterol/ Ipratropium (Duoneb) 3 ml Q2H RESP THERAPY PRN HHN SHORTNESS OF BREATH; Start 08/20/18 at 06:00 Furosemide (Lasix) 20 mg DAILY PO Last administered on 08/25/18at 08:52; Admin Dose 20 MG; Start 08/20/18 at 09:00 Nicotine (Nicoderm 21 Mg/ 24hr) 1 patch DAILY TRANSDERM Last administered on 08/22/18at 11:07; Admin Dose 1 PATCH; Start 08/20/18 at 09:00 Vancomycin HCl (Vanco Iv Per Pharmacy) VANCOMYCIN PER PHARMACY PER PROTOCOL XX ; Start 08/20/18 at 06:00 Cefepime HCl 50 ml @ 100 mls/hr Q12 IVPB Last administered on 08/25/18at 08:53; Admin Dose 100 MLS/HR; Start 08/21/18 at 21:00 Vancomycin HCl 1.25 gm/Sodium Chloride 250 ml @ 83.333 mls/ hr Q8H IVPB Last administered on 08/25/18at 05:13; Admin Dose 83.333 MLS/HR; Start 08/24/18 at 14:00 Sodium Hypochlorite (Dakins Diluted ()) 1 applic Kasey TP ; Start 08/25/18 at 11:00 BHARGAV PUENTE NP Aug 25, 2018 13:48
[2018-08-25 14:00] VITALS: BP 101/60; PULSE 87; RESP 20
[2018-08-25] MEDS ORDERED: CIPR750T3 PO (14:17)
[2018-08-25] MEDS ORDERED: SULF1TAB31 PO (14:17)
--- NOTE | 2018-08-25 14:22 | PDOCDIS ---
Discharge Instructions CONDITION [id number] Patient Condition: [id number] Stable FOLLOW UP/APPOINTMENTS Follow-up Plan 1. Resume home medications 2. Complete the course of antibiotics. 3. Resume activities as tolerated. 4. Please follow-up with at [facility] wound care clinic. Please call for appointment at [phone]. 5. Please go to the nearest emergency room if you have any persistent fevers, significant pain in the right adams, or any other unusual signs/symptoms. BHARGAV PUENTE NP Aug 25, 2018 14:22
--- NOTE | 2018-08-26 07:25 | DS ---
Date/Time of Note Date/Time of Note DATE: 08/26/18 TIME: 07:25 Discharge Summary Admission/Discharge Info Admit Date/Time Aug 20, 2018 at 01:56 Discharge Date/Time Aug 25, 2018 at 18:30 Discharge Diagnosis 1. Right lower extremity venous stasis with underlying cellulitis and underlying abscess. Status post right lower extremity incision and drainage, excisional debridement, and application of wound VAC on 08/22/2018. 2. Obstructive sleep apnea. 3. Nicotine use. 4. Morbid obesity. BMI more than 53 kg/m. 5. Pre-diabetes. Patient Condition: Stable Consults 1. Gilberto Tan DPM, Podiatry. 2. Bharat Rice MD, Infectious Diseases. Procedures Date/Time of Note Date/Time of Note DATE: 08/22/18 TIME: 18:59 Operative Report Operative Report Preoperative Diagnosis RLE cellulitis RLE venous ulcer RLE edema RLE abscess Pain in limb R Postoperative Diagnosis RLE cellulitis RLE venous ulcer RLE edema RLE abscess Pain in limb R Operation/Procedure Performed right lower extremity incision and drainage Right lower extremity Excisional debridement application of wound VAC RLE MRI IMPRESSION: Extensive, anterolateral predominant soft tissue edema with more focal appearing fluid collection suggesting abscess superimposed on cellulitis. No evidence of osteomyelitis. Hx of Present Illness This is a 38-year-old male with comorbidities including morbid obesity, COPD, obstructive sleep apnea, prediabetes, and nicotine use. The patient was recently evaluated at [facility] and was discharged home on 08/16/2018. At that time, the patient had right lower extremity pain and the patient underwent a right lower extremity CT scan that was showing extensive anterolateral subcutaneous infiltration/fluid collection superficial to the muscles and patella. The patient came back to the ER on 08/20/2018 with chief complaint of a right adams blister that was draining "pus." The patient was admitted to inpatient setting for further treatment and evaluation. Hospital Course The patient was started on empiric antimicrobials including coverage for anaerobes. The patient underwent a right lower extremity MRI that was showing extensively anterolateral predominant soft tissue edema with more focal appearing fluid collection suggesting abscess superimposed on cellulitis with no evidence of osteomyelitis. The patient was taken to the OR on 08/22/2018 and the patient underwent a right lower extremity incision and drainage, excisional debridement, and application of wound VAC. The patient's wound cultures remained negative. The patient was maintained on antimicrobials as per infectious diseases. Upon discharge, he will complete the course of 2 weeks of oral antibiotic therapy in addition to the IV antibiotics that he received while in-house. Home health was arranged for management of the patient's wound VAC upon discharge. The patient also has underlying obstructive sleep apnea and uses a nocturnal CPAP. The patient's home CPAP was not used during his stay in the hospital at [facility]. The patient is also morbidly obese with a BMI of more than 53. The patient was maintained on weight reduction. The patient also has underlying diagnosis of prediabetes. The patient's glycemic trends were monitored. Once the patient's home health was arranged for outpatient care of his wound VAC, the patient was discharged home. Discharge Instructions 1. Resume home medications. 2. Complete the course of antibiotics. 3. Resume activities as tolerated. 4. Please follow-up with at [facility] wound care clinic. Please call for appointment at [phone]. 5. Please go to the nearest emergency room if you have any persistent fevers, significant pain in the right adams, or any other unusual signs/symptoms. The patient verbalized understanding of his discharge instructions. At this time I would like to thank all the consultants for seeing the patient, doing the necessary procedures, and providing clinical recommendations. The patient was seen in collaboration with Dr. Rosas. Home Meds Active Scripts Ciprofloxacin Hcl* (Ciprofloxacin Hcl*) 750 Mg Tablet, 750 MG PO BID for 14 Days, #28 TAB Prov:BHARGAV PUENTE [employer]PARTMENT STORE SALESPERSON 08/25/18 Sulfamethoxazole/Trimethoprim* (Bactrim Ds* Tablet) 1 Each Tablet, 1 TAB PO BID for 14 Days, #28 TAB Prov:BHARGAV PUENTE [employer]PARTMENT STORE SALESPERSON 08/25/18 Furosemide (Lasix) 20 Mg Tab, 20 MG PO DAILY, #30 TAB 3 Refills Prov:EMILI OLVERA S. 08/16/18 Levalbuterol* (Xopenex* HFA) 15 Gm Inha, 2 PUFFS INH Q4H PRN for WHEEZING AND SOB, #1 INHALER 7 Refills Prov:EMILI OLVERA S. 08/16/18 Discontinued Scripts Nicotine* (Nicotine* Patch) 21 mg/day Patch, 1 PATCH TRANSDERM DAILY, #30 BOTTLE 2 Refills Prov:EMILI OLVERA 08/16/18 Follow-up Plan 1. Resume home medications 2. Complete the course of antibiotics. 3. Resume activities as tolerated. 4. Please follow-up with at [facility] wound care clinic. Please call for appointment at [phone]. 5. Please go to the nearest emergency room if you have any persistent fevers, significant pain in the right adams, or any other unusual signs/symptoms. Primary Care Provider Not On Staff Doctor Time spent on discharge: > 30 minutes Pending Labs Laboratory Tests Test 08/25/18 14:01 Blood Urea Nitrogen 16 mg/dl (7-20) Creatinine 0.98 mg/dl (0.61-1.24) Vancomycin Level Trough 14.1 ug/ml (10.0-20.0) BHARGAV PUENTE NP Aug 26, 2018 07:25
== END 2018-08-25 18:30 | disposition home health service (06) | DRG 571 ==
LOC: E/R 21:08 → 5EC 08-20 01:56 → CANRESERV 08-20 02:18 → 5EC 08-20 03:50
PROVIDERS: ADMIT Internal Medicine; ATTEND Internal Medicine
PROC: 0JBN0ZZ Excision of Right Lower Leg Subcutaneous Tissue and Fascia, Open Approach (ICD-10-PCS; principal; 2018-08-22 17:30)
DX: L03.115 Cellulitis of right lower limb (principal); Z68.43 Body mass index [BMI] 50.0-59.9, adult; L02.415 Cutaneous abscess of right lower limb; E66.01 Morbid (severe) obesity due to excess calories; G47.33 Obstructive sleep apnea (adult) (pediatric); J44.9 Chronic obstructive pulmonary disease, unspecified; I87.8 Other specified disorders of veins; R73.03 Prediabetes; Z72.0 Tobacco use
CPT/HCPCS: 36415; 71045; 73590; 73718; 80048; 80053; 80202; 81001; 81003; 82565; 83605; 83735; 84100; 84484; 84520; 85025; 85610; 85651; 85730; 86140; 87070; 87075; 87086; 87102; 93005; 93971; J0360; J0692; J1650; J2250; J2543; J2795; J3010; J3370; J7030; J7040; J7050

== ENCOUNTER 2018-09-27 23:03 | Emergency (ER) | payer MEDICAID ==
[~2018-09-27] VITALS: Wt 145.0 kg
[~2018-09-27 23:03] MED LIST changes: +CIPR750T3 PO; -NICO-546 TRANSDERM; +SULF1TAB31 PO
[2018-09-28] MEDS ORDERED: BEN50 PO (01:08)
[2018-09-28] MEDS ORDERED: PRED20TA PO (01:08)
--- NOTE | 2018-09-28 01:15 | ERD ---
ER Documentation Chief Complaint Chief Complaint hive to forearms/ab area x2days s/p showering; using now soap; no SOB/WHEEZ HPI 38-year-old male presents with complaint of hives to his arms and abdomen. States that it happened 2 days after taking shower. Denies any knowledge of allergies. Denies any wheezing, respiratory distress, vomiting, lightheadedness. Denies any medical problems. ROS All systems reviewed and are negative except as per history of present illness. Medications Home Meds Active Scripts Diphenhydramine Hcl* (Benadryl*) 50 Mg Cap, 50 MG PO Q6H PRN for ITCHING/RASH, #30 CAP Prov:DAVID CHAVARRIA 09/28/18 Prednisone* (Prednisone*) 20 Mg Tab, 40 MG PO DAILY for allergic reaction for 4 Days, TAB Prov:DAVID CHAVARRIA 09/28/18 Ciprofloxacin Hcl* (Ciprofloxacin Hcl*) 750 Mg Tablet, 750 MG PO BID for 14 Days, #28 TAB Prov:BHARGAV PUENTE FOUNDRY PATTERNMAKER 08/25/18 Sulfamethoxazole/Trimethoprim* (Bactrim Ds* Tablet) 1 Each Tablet, 1 TAB PO BID for 14 Days, #28 TAB Prov:BHARGAV PUENTE FOUNDRY PATTERNMAKER 08/25/18 Furosemide (Lasix) 20 Mg Tab, 20 MG PO DAILY, #30 TAB 3 Refills Prov:EMILI OLVERA S. 08/16/18 Levalbuterol* (Xopenex* HFA) 15 Gm Inha, 2 PUFFS INH Q4H PRN for WHEEZING AND SOB, #1 INHALER 7 Refills Prov:EMILI OLVERA S. 08/16/18 Allergies Allergies: Coded Allergies: No Known Allergy (Unverified , 08/08/18) PMhx/Soc History of Surgery: No Anesthesia Reaction: No Hx Neurological Disorder: No Hx Respiratory Disorders: Yes (RESPIRATORY FAILURE) Hx Cardiac Disorders: No Hx Psychiatric Problems: No Hx Miscellaneous Medical Probl: No Hx Alcohol Use: Yes Hx Substance Use: Yes (COCAINE) Hx Tobacco Use: Yes Smoking Status: Current every day smoker FmHx Family History: No diabetes, No coronary disease, No other Physical Exam Vitals Vital Signs Date Temp Pulse Resp B/P (MAP) Pulse Ox O2 O2 Flow FiO2 Time Delivery Rate 09/27/18 98.9 96 20 142/82 100 23:16 (102) Physical Exam Const: No acute distress Head: Atraumatic Eyes: Normal Conjunctiva ENT: Normal External Ears, Nose and Mouth. Airways patent. There is no tongue edema. There is no angioedema. There is no stridor noted. Neck: Full range of motion. No meningismus. Resp: Clear to auscultation bilaterally Cardio: Regular rate and rhythm, no murmurs Abd: Soft, non tender, non distended. Normal bowel sounds Skin: Urticaria's rash noted over arms and abdomen. Back: No midline or flank tederness Ext: No cyanosis, or edema Neur: Awake and alert Psych: Normal Mood and Affect Results 24 hrs Current Medications Medications Dose Sig/Ciera Start Time Status Last (Trade) Ordered Route PRN Stop Time Admin Dose Reason Admin 50 mg ONCE ONCE 09/28/18 Diphenhydrami IM 01:30 ne HCl 09/28/18 01:31 (Benadryl) Famotidine 40 mg ONCE ONCE 09/28/18 (Pepcid) PO 01:30 09/28/18 01:31 Prednisone 40 mg ONCE ONCE 09/28/18 (Prednisone) PO 01:30 09/28/18 01:31 Prednisone 20 mg ONCE ONCE 09/28/18 (Prednisone) PO 01:30 09/28/18 01:31 Procedures/MDM MDM: Patient's presentation is consistent with allergic reaction. Patient given Pepcid, Benadryl, and prednisone in the ER. Patient discharged with Rx for Benadryl and prednisone. I have low suspicion for anaphylaxis, respiratory distress, or any other emergent condition. Patient discharged with strict ER precautions. Patient advised to follow up with PMD. All questions answered at discharge. Departure Diagnosis: Primary Impression: Allergic reaction Condition: Stable Patient Instructions: First Aid: Allergic Reactions Referrals: COMMUNITY CLINICS YOU HAVE RECEIVED A MEDICAL SCREENING EXAM AND THE RESULTS INDICATE THAT YOU DO NOT HAVE A CONDITION THAT REQUIRES URGENT TREATMENT IN THE EMERGENCY DEPARTMENT. FURTHER EVALUATION AND TREATMENT OF YOUR CONDITION CAN WAIT UNTIL YOU ARE SEEN IN YOUR DOCTORS OFFICE WITHIN THE NEXT 1-2 DAYS. IT IS YOUR RESPONSIBILITY TO MAKE AN APPOINTMENT FOR FOLOW-UP CARE. IF YOU HAVE A PRIMARY DOCTOR --you should call your primary doctor and schedule an appointment IF YOU DO NOT HAVE A PRIMARY DOCTOR YOU CAN CALL OUR PHYSICIAN REFERRAL HOTLINE AT IF YOU CAN NOT AFFORD TO SEE A PHYSICIAN YOU CAN CHOSE FROM THE FOLLOWING [facility] [address] [facility] [address] [facility]. [facility] [phone] [facility] [address] [facility]. [facility] [address] [facility]. [facility]. [address] Additional Instructions: FOLLOW UP WITH YOUR PRIMARY CARE PHYSICIAN TOMORROW.Return to this facility if you are not improving as expected. DAVID CHAVARRIA September 28, 2018 01:15
[2018-09-28] MEDS ORDERED: DIPHENHYDRAMINE 50 MG INJ IM ONE (01:30)
[2018-09-28] MEDS ORDERED: predniSONE 20 MG TAB PO ONE ×2 (01:30)
[2018-09-28] MEDS ORDERED: FAMOTIDINE 20 MG TAB PO ONE (01:30)
[2018-09-28 02:43] VITALS: BP 139/85; PULSE 82; RESP 20
== END 2018-09-28 02:50 | disposition home or self-care (01) ==
LOC: FTE 23:03
DX: L50.0 Allergic urticaria (principal); F17.210 Nicotine dependence, cigarettes, uncomplicated
CPT/HCPCS: 96372; J1200; J7512; Z7502; Z7610